=== PATIENT | male | born 1980 | race Caucasian/White ===

== ENCOUNTER 2021-02-05 12:04 | Outpatient (REF) | payer MEDICARE, MEDICAID, SELFPAY ==
[2021-02-05 13:10] LABS: MANUAL DIFF FLAG NO
[2021-02-05 13:16] LABS: Basophils Percent Auto 0.3 % (0-2); Eosinophils Absolute Auto 0.1 X10*3/uL (0.0-0.4); Eosinophils Percent Auto 1.1 % (0-4); Hematocrit 38.7 % (42-52); Hemoglobin 12.8 g/dl (14.0-18.0); Imm Gran Abs Auto 0.13 X10*3/uL (0.00-0.03); Imm Gran Pct Auto 1.3 % (0.0-0.4); Lymphocytes Percent Auto 29.2 % (20-40); Mean Corpuscular HGB Conc 33.1 g/dl (31.0-36.0); Mean Corpuscular Hemoglobin 26.4 pg (27.0-33.0); Mean Corpuscular Volume 79.8 fL (80-98); Mean Platelet Volume 9.5 fL (9.4-12.4); Monocytes Absolute Auto 0.6 X10*3/uL (0.1-1.2); Neutrophils Absolute Auto 6.4 X10*3/uL (2.0-8.3); Neutrophils Percent Auto 62.1 % (45-73); Platelet Count 415 X10*3/uL (160-400); Red Blood Count 4.85 X10*6/uL (4.60-5.80); Red Cell Distribution Width 12.9 % (11.0-16.0); White Blood Count 10.3 X10*3/uL (4.8-10.8)
[2021-02-05 13:41] LABS: Alanine Aminotransferase 47 U/L (0-40); Albumin Level 4.9 g/dL (3.5-5.0); Alkaline Phosphatase 70 U/L (39-117); Anion Gap 15 (12-20); Aspartate Amino Transferase 30 U/L (5-37); Bilirubin Total 0.2 mg/dL (0.0-1.0); Blood Urea Nitrogen 5 mg/dL (9-16); Calcium 9.2 mg/dL (8.4-10.2); Carbon Dioxide 22 mmol/L (22-29); Chloride 107 mmol/L (96-108); Cholesterol 194 mg/dL; Estimated Glomerular Filt Rate > 60; Glucose Random 143 mg/dL (60-115); HDL Cholesterol 41 mg/dL; LDL Cholesterol Calculated 121 mg/dl; Potassium 4.2 mmol/L (3.3-5.1); Sodium 140 mmol/L (135-145); Total Protein 7.4 g/dL (6.5-8.0); Triglycerides 162 mg/dL
[2021-02-05 14:05] LABS: Free T4 (Free Thyroxine) 1.34 ng/dL (0.71-1.85); Thyroid Stimulating Hormone 3.74 uIU/mL (0.32-4.0); Vitamin D 25-OH Total 19.7 ng/mL (>30)
== END 2021-02-05 12:05 | disposition home or self-care (01) ==
LOC: HO.LABR 12:04
PROVIDERS: Absent Provider Psychiatry & Neurology Psychiatry; Visit Provider Psychiatry & Neurology Psychiatry
DX: E03.9 Hypothyroidism, unspecified (principal); E78.5 Hyperlipidemia, unspecified; E55.9 Vitamin D deficiency, unspecified; Z79.899 Other long term (current) drug therapy
CPT/HCPCS: 36415; 80053; 80061; 82306; 84439; 84443; 85025

== ENCOUNTER 2021-02-12 13:14 | Outpatient (REF) | payer MEDICARE, MEDICAID, SELFPAY ==
[2021-02-12 14:16] LABS: Amphetamine Screen Urine Not Detected (Not Detect); Barbiturates, Urine Not Detected (Not Detect); Benzodiazepines Screen Urine Not Detected (Not Detect); Cannabinoid Screen Urine POSITIVE (Not Detect); Cocaine Screen Urine Not Detected (Not Detect); Opiate Screen Urine Not Detected (Not Detect); Phencyclidine Screen Urine Not Detected (Not Detect)
== END 2021-02-12 13:15 | disposition home or self-care (01) ==
LOC: HO.LAB 13:14
PROVIDERS: Visit Provider Clinical Nurse Specialist Psychiatric/Mental Health, Adult
DX: Z79.899 Other long term (current) drug therapy (principal)
CPT/HCPCS: 80307

== ENCOUNTER 2021-02-18 15:06 | Outpatient (REF) | payer MEDICARE, MEDICAID, SELFPAY ==
[2021-02-18 15:45] LABS: MANUAL DIFF FLAG NO
[2021-02-18 15:54] LABS: Basophils Percent Auto 0.3 % (0-2); Eosinophils Absolute Auto 0.1 X10*3/uL (0.0-0.4); Eosinophils Percent Auto 0.8 % (0-4); Hematocrit 40.4 % (42-52); Hemoglobin 13.6 g/dl (14.0-18.0); Imm Gran Abs Auto 0.08 X10*3/uL (0.00-0.03); Imm Gran Pct Auto 0.7 % (0.0-0.4); Lymphocytes Absolute Auto 2.7 X10*3/uL (1.2-4.9); Lymphocytes Percent Auto 24.9 % (20-40); Mean Corpuscular HGB Conc 33.7 g/dl (31.0-36.0); Mean Corpuscular Hemoglobin 26.9 pg (27.0-33.0); Mean Corpuscular Volume 79.8 fL (80-98); Mean Platelet Volume 9.5 fL (9.4-12.4); Monocytes Absolute Auto 0.5 X10*3/uL (0.1-1.2); Monocytes Percent Auto 4.9 % (2-11); Neutrophils Absolute Auto 7.3 X10*3/uL (2.0-8.3); Neutrophils Percent Auto 68.4 % (45-73); Platelet Count 376 X10*3/uL (160-400); Red Blood Count 5.06 X10*6/uL (4.60-5.80); Red Cell Distribution Width 13.2 % (11.0-16.0); White Blood Count 10.7 X10*3/uL (4.8-10.8)
== END 2021-02-18 15:07 | disposition home or self-care (01) ==
LOC: HO.LABR 15:06
PROVIDERS: Visit Provider Clinical Nurse Specialist Psychiatric/Mental Health, Adult
DX: Z79.899 Other long term (current) drug therapy (principal)
CPT/HCPCS: 36415; 85025

== ENCOUNTER 2021-02-26 13:55 | Outpatient (REF) | payer MEDICARE, MEDICAID, SELFPAY ==
[2021-02-26 14:28] LABS: MANUAL DIFF FLAG NO
[2021-02-26 14:33] LABS: Basophils Percent Auto 0.4 % (0-2); Eosinophils Absolute Auto 0.1 X10*3/uL (0.0-0.4); Eosinophils Percent Auto 0.7 % (0-4); Hematocrit 39.8 % (42-52); Hemoglobin 13.4 g/dl (14.0-18.0); Imm Gran Abs Auto 0.11 X10*3/uL (0.00-0.03); Imm Gran Pct Auto 1.1 % (0.0-0.4); Lymphocytes Percent Auto 30.7 % (20-40); Mean Corpuscular HGB Conc 33.7 g/dl (31.0-36.0); Mean Corpuscular Hemoglobin 27.2 pg (27.0-33.0); Mean Corpuscular Volume 80.7 fL (80-98); Mean Platelet Volume 9.5 fL (9.4-12.4); Monocytes Absolute Auto 0.7 X10*3/uL (0.1-1.2); Monocytes Percent Auto 7.5 % (2-11); Neut%MD 59.6 %; Neutrophils Absolute Auto 5.8 X10*3/uL (2.0-8.3); Neutrophils Percent Auto 59.6 % (45-73); Platelet Count 409 X10*3/uL (160-400); Red Blood Count 4.93 X10*6/uL (4.60-5.80); Red Cell Distribution Width 13.2 % (11.0-16.0); WBCANC 9.7 X10*3/uL; White Blood Count 9.7 X10*3/uL (4.8-10.8)
== END 2021-02-26 13:56 | disposition home or self-care (01) ==
LOC: HO.LABR 13:55
PROVIDERS: Visit Provider Clinical Nurse Specialist Psychiatric/Mental Health, Adult
DX: Z79.899 Other long term (current) drug therapy (principal)
CPT/HCPCS: 36415; 85025; 85048

== ENCOUNTER 2021-03-05 11:25 | Outpatient (REF) | payer MEDICARE, MEDICAID, SELFPAY ==
[2021-03-05 12:09] LABS: MANUAL DIFF FLAG NO
[2021-03-05 12:16] LABS: Basophils Percent Auto 0.5 % (0-2); Eosinophils Absolute Auto 0.1 X10*3/uL (0.0-0.4); Eosinophils Percent Auto 0.7 % (0-4); Hematocrit 39.5 % (42-52); Hemoglobin 12.8 g/dl (14.0-18.0); Imm Gran Abs Auto 0.06 X10*3/uL (0.00-0.03); Imm Gran Pct Auto 0.7 % (0.0-0.4); Lymphocytes Absolute Auto 2.8 X10*3/uL (1.2-4.9); Lymphocytes Percent Auto 33.8 % (20-40); Mean Corpuscular HGB Conc 32.4 g/dl (31.0-36.0); Mean Corpuscular Hemoglobin 26.1 pg (27.0-33.0); Mean Corpuscular Volume 80.6 fL (80-98); Mean Platelet Volume 9.5 fL (9.4-12.4); Monocytes Absolute Auto 0.7 X10*3/uL (0.1-1.2); Monocytes Percent Auto 8.4 % (2-11); Neut%MD 55.9 %; Neutrophils Absolute Auto 4.6 X10*3/uL (2.0-8.3); Neutrophils Percent Auto 55.9 % (45-73); Platelet Count 378 X10*3/uL (160-400); Red Cell Distribution Width 13.1 % (11.0-16.0); WBCANC 8.2 X10*3/uL; White Blood Count 8.2 X10*3/uL (4.8-10.8)
== END 2021-03-05 11:26 | disposition home or self-care (01) ==
LOC: HO.LABR 11:25
PROVIDERS: Visit Provider Clinical Nurse Specialist Psychiatric/Mental Health, Adult
DX: Z79.899 Other long term (current) drug therapy (principal)
CPT/HCPCS: 36415; 85025; 85048

== ENCOUNTER 2021-03-26 13:57 | Outpatient (REF) | payer MEDICARE, MEDICAID, SELFPAY ==
[2021-03-26 14:32] LABS: MANUAL DIFF FLAG NO
[2021-03-26 14:39] LABS: Basophils Absolute Auto 0.1 X10*3/uL (0.0-0.2); Basophils Percent Auto 0.3 % (0-2); Eosinophils Percent Auto 0.2 % (0-4); Hematocrit 38.4 % (42-52); Hemoglobin 12.6 g/dl (14.0-18.0); Imm Gran Abs Auto 0.08 X10*3/uL (0.00-0.03); Imm Gran Pct Auto 0.6 % (0.0-0.4); Lymphocytes Absolute Auto 2.2 X10*3/uL (1.2-4.9); Lymphocytes Percent Auto 15.1 % (20-40); Mean Corpuscular HGB Conc 32.8 g/dl (31.0-36.0); Mean Corpuscular Hemoglobin 26.7 pg (27.0-33.0); Mean Corpuscular Volume 81.4 fL (80-98); Mean Platelet Volume 10.1 fL (9.4-12.4); Monocytes Absolute Auto 0.6 X10*3/uL (0.1-1.2); Monocytes Percent Auto 4.3 % (2-11); Neut%MD 79.5 %; Neutrophils Absolute Auto 11.4 X10*3/uL (2.0-8.3); Neutrophils Percent Auto 79.5 % (45-73); Platelet Count 359 X10*3/uL (160-400); Red Blood Count 4.72 X10*6/uL (4.60-5.80); Red Cell Distribution Width 13.2 % (11.0-16.0); WBCANC 14.3 X10*3/uL; White Blood Count 14.3 X10*3/uL (4.8-10.8)
== END 2021-03-26 13:58 | disposition home or self-care (01) ==
LOC: HO.LABR 13:57
PROVIDERS: Visit Provider Clinical Nurse Specialist Psychiatric/Mental Health, Adult
DX: Z79.899 Other long term (current) drug therapy (principal)
CPT/HCPCS: 36415; 85025; 85048

== ENCOUNTER 2021-04-10 10:35 | Outpatient (REF) | payer MEDICARE, MEDICAID, SELFPAY ==
[2021-04-10 12:29] LABS: MANUAL DIFF FLAG NO
[2021-04-10 12:35] LABS: Basophils Percent Auto 0.2 % (0-2); Eosinophils Percent Auto 0.2 % (0-4); Hematocrit 39.8 % (42-52); Hemoglobin 13.1 g/dl (14.0-18.0); Imm Gran Abs Auto 0.08 X10*3/uL (0.00-0.03); Imm Gran Pct Auto 0.6 % (0.0-0.4); Lymphocytes Absolute Auto 2.5 X10*3/uL (1.2-4.9); Lymphocytes Percent Auto 20.1 % (20-40); Mean Corpuscular HGB Conc 32.9 g/dl (31.0-36.0); Mean Corpuscular Hemoglobin 26.3 pg (27.0-33.0); Mean Corpuscular Volume 79.9 fL (80-98); Mean Platelet Volume 9.9 fL (9.4-12.4); Monocytes Absolute Auto 0.6 X10*3/uL (0.1-1.2); Monocytes Percent Auto 4.6 % (2-11); Neut%MD 74.3 %; Neutrophils Absolute Auto 9.2 X10*3/uL (2.0-8.3); Neutrophils Percent Auto 74.3 % (45-73); Platelet Count 373 X10*3/uL (160-400); Red Blood Count 4.98 X10*6/uL (4.60-5.80); Red Cell Distribution Width 13.4 % (11.0-16.0); WBCANC 12.4 X10*3/uL; White Blood Count 12.4 X10*3/uL (4.8-10.8)
== END 2021-04-10 10:36 | disposition home or self-care (01) ==
LOC: HO.LABR 10:35
PROVIDERS: Visit Provider Clinical Nurse Specialist Psychiatric/Mental Health, Adult
DX: Z79.899 Other long term (current) drug therapy (principal)
CPT/HCPCS: 36415; 85025; 85048

== ENCOUNTER 2021-04-23 14:12 | Outpatient (REF) | payer MEDICARE, MEDICAID, SELFPAY ==
[2021-04-23 15:07] LABS: MANUAL DIFF FLAG NO
[2021-04-23 15:14] LABS: Basophils Percent Auto 0.3 % (0-2); Eosinophils Percent Auto 0.2 % (0-4); Hematocrit 40.6 % (42-52); Hemoglobin 13.2 g/dl (14.0-18.0); Imm Gran Abs Auto 0.04 X10*3/uL (0.00-0.03); Imm Gran Pct Auto 0.4 % (0.0-0.4); Lymphocytes Absolute Auto 3.1 X10*3/uL (1.2-4.9); Lymphocytes Percent Auto 34.7 % (20-40); Mean Corpuscular HGB Conc 32.5 g/dl (31.0-36.0); Mean Corpuscular Hemoglobin 26.2 pg (27.0-33.0); Mean Corpuscular Volume 80.6 fL (80-98); Mean Platelet Volume 9.7 fL (9.4-12.4); Monocytes Absolute Auto 0.5 X10*3/uL (0.1-1.2); Neut%MD 58.4 %; Neutrophils Absolute Auto 5.3 X10*3/uL (2.0-8.3); Neutrophils Percent Auto 58.4 % (45-73); Platelet Count 366 X10*3/uL (160-400); Red Blood Count 5.04 X10*6/uL (4.60-5.80); Red Cell Distribution Width 13.5 % (11.0-16.0); WBCANC 9.1 X10*3/uL; White Blood Count 9.1 X10*3/uL (4.8-10.8)
== END 2021-04-23 14:13 | disposition home or self-care (01) ==
LOC: HO.LABR 14:12
PROVIDERS: Visit Provider Clinical Nurse Specialist Psychiatric/Mental Health, Adult
DX: Z79.899 Other long term (current) drug therapy (principal)
CPT/HCPCS: 36415; 85025; 85048

== ENCOUNTER 2021-05-07 11:26 | Outpatient (REF) | payer MEDICARE, MEDICAID, SELFPAY ==
[2021-05-07 11:56] LABS: MANUAL DIFF FLAG NO
[2021-05-07 12:03] LABS: Basophils Percent Auto 0.3 % (0-2); Hematocrit 39.1 % (42-52); Imm Gran Abs Auto 0.04 X10*3/uL (0.00-0.03); Imm Gran Pct Auto 0.4 % (0.0-0.4); Lymphocytes Absolute Auto 2.6 X10*3/uL (1.2-4.9); Lymphocytes Percent Auto 23.9 % (20-40); Mean Corpuscular HGB Conc 33.2 g/dl (31.0-36.0); Mean Corpuscular Hemoglobin 26.7 pg (27.0-33.0); Mean Corpuscular Volume 80.3 fL (80-98); Mean Platelet Volume 9.6 fL (9.4-12.4); Monocytes Absolute Auto 0.5 X10*3/uL (0.1-1.2); Monocytes Percent Auto 4.9 % (2-11); Neutrophils Absolute Auto 7.6 X10*3/uL (2.0-8.3); Neutrophils Percent Auto 70.5 % (45-73); Platelet Count 380 X10*3/uL (160-400); Red Blood Count 4.87 X10*6/uL (4.60-5.80); Red Cell Distribution Width 13.4 % (11.0-16.0); White Blood Count 10.8 X10*3/uL (4.8-10.8)
== END 2021-05-07 11:27 | disposition home or self-care (01) ==
LOC: HO.LABR 11:26
PROVIDERS: Visit Provider Clinical Nurse Specialist Psychiatric/Mental Health, Adult
DX: Z79.899 Other long term (current) drug therapy (principal)
CPT/HCPCS: 36415; 85025

== ENCOUNTER 2021-05-22 11:47 | Outpatient (REF) | payer MEDICARE, MEDICAID, SELFPAY ==
[2021-05-22 14:01] LABS: MANUAL DIFF FLAG NO
[2021-05-22 14:13] LABS: Basophils Percent Auto 0.3 % (0-2); Hematocrit 40.6 % (42-52); Hemoglobin 13.3 g/dl (14.0-18.0); Imm Gran Abs Auto 0.06 X10*3/uL (0.00-0.03); Imm Gran Pct Auto 0.6 % (0.0-0.4); Lymphocytes Absolute Auto 2.4 X10*3/uL (1.2-4.9); Lymphocytes Percent Auto 23.5 % (20-40); Mean Corpuscular HGB Conc 32.8 g/dl (31.0-36.0); Mean Corpuscular Hemoglobin 26.6 pg (27.0-33.0); Mean Corpuscular Volume 81.2 fL (80-98); Mean Platelet Volume 10.2 fL (9.4-12.4); Monocytes Absolute Auto 0.6 X10*3/uL (0.1-1.2); Monocytes Percent Auto 5.9 % (2-11); Neutrophils Percent Auto 69.7 % (45-73); Platelet Count 340 X10*3/uL (160-400); Red Cell Distribution Width 13.7 % (11.0-16.0)
== END 2021-05-22 11:48 | disposition home or self-care (01) ==
LOC: HO.LABR 11:47
PROVIDERS: Visit Provider Clinical Nurse Specialist Psychiatric/Mental Health, Adult
DX: Z79.899 Other long term (current) drug therapy (principal)
CPT/HCPCS: 36415; 85025

== ENCOUNTER 2021-06-04 12:50 | Outpatient (REF) | payer MEDICARE, MEDICAID, SELFPAY ==
[2021-06-04 13:51] LABS: MANUAL DIFF FLAG NO
[2021-06-04 13:58] LABS: Basophils Percent Auto 0.2 % (0-2); Hematocrit 39.5 % (42-52); Imm Gran Abs Auto 0.07 X10*3/uL (0.00-0.03); Imm Gran Pct Auto 0.7 % (0.0-0.4); Lymphocytes Absolute Auto 2.3 X10*3/uL (1.2-4.9); Mean Corpuscular HGB Conc 32.9 g/dl (31.0-36.0); Mean Corpuscular Hemoglobin 26.4 pg (27.0-33.0); Mean Corpuscular Volume 80.3 fL (80-98); Mean Platelet Volume 9.8 fL (9.4-12.4); Monocytes Absolute Auto 0.5 X10*3/uL (0.1-1.2); Monocytes Percent Auto 4.6 % (2-11); Neutrophils Absolute Auto 7.5 X10*3/uL (2.0-8.3); Neutrophils Percent Auto 72.5 % (45-73); Platelet Count 338 X10*3/uL (160-400); Red Blood Count 4.92 X10*6/uL (4.60-5.80); Red Cell Distribution Width 13.6 % (11.0-16.0); White Blood Count 10.4 X10*3/uL (4.8-10.8)
== END 2021-06-04 12:51 | disposition home or self-care (01) ==
LOC: HO.LABR 12:50
PROVIDERS: Visit Provider Clinical Nurse Specialist Psychiatric/Mental Health, Adult
DX: Z79.899 Other long term (current) drug therapy (principal)
CPT/HCPCS: 36415; 85025

== ENCOUNTER 2021-06-19 09:49 | Outpatient (REF) | payer MEDICARE, MEDICAID, SELFPAY ==
[2021-06-19 10:09] LABS: MANUAL DIFF FLAG NO
[2021-06-19 10:12] LABS: Basophils Percent Auto 0.3 % (0-2); Hematocrit 37.2 % (42-52); Hemoglobin 12.5 g/dl (14.0-18.0); Imm Gran Abs Auto 0.04 X10*3/uL (0.00-0.03); Imm Gran Pct Auto 0.5 % (0.0-0.4); Lymphocytes Absolute Auto 1.9 X10*3/uL (1.2-4.9); Lymphocytes Percent Auto 23.2 % (20-40); Mean Corpuscular HGB Conc 33.6 g/dl (31.0-36.0); Mean Corpuscular Hemoglobin 27.2 pg (27.0-33.0); Mean Platelet Volume 9.1 fL (9.4-12.4); Monocytes Absolute Auto 0.6 X10*3/uL (0.1-1.2); Monocytes Percent Auto 6.9 % (2-11); Neutrophils Absolute Auto 5.5 X10*3/uL (2.0-8.3); Neutrophils Percent Auto 69.1 % (45-73); Platelet Count 319 X10*3/uL (160-400); Red Blood Count 4.59 X10*6/uL (4.60-5.80); Red Cell Distribution Width 13.7 % (11.0-16.0)
== END 2021-06-19 09:50 | disposition home or self-care (01) ==
LOC: HO.LABR 09:49
PROVIDERS: Visit Provider Clinical Nurse Specialist Psychiatric/Mental Health, Adult
DX: Z79.899 Other long term (current) drug therapy (principal)
CPT/HCPCS: 36415; 85025

== ENCOUNTER 2021-07-31 11:54 | Outpatient (REF) | payer MEDICARE, MEDICAID, SELFPAY ==
[2021-07-31 12:24] LABS: MANUAL DIFF FLAG NO
[2021-07-31 12:30] LABS: Basophils Percent Auto 0.4 % (0-2); Hematocrit 41.9 % (42-52); Hemoglobin 14.1 g/dl (14.0-18.0); Imm Gran Pct Auto 0.9 % (0.0-0.4); Lymphocytes Absolute Auto 3.1 X10*3/uL (1.2-4.9); Lymphocytes Percent Auto 28.7 % (20-40); Mean Corpuscular HGB Conc 33.7 g/dl (31.0-36.0); Mean Corpuscular Hemoglobin 27.3 pg (27.0-33.0); Mean Corpuscular Volume 81.2 fL (80-98); Mean Platelet Volume 9.8 fL (9.4-12.4); Monocytes Absolute Auto 0.7 X10*3/uL (0.1-1.2); Monocytes Percent Auto 6.3 % (2-11); Neutrophils Absolute Auto 6.8 X10*3/uL (2.0-8.3); Neutrophils Percent Auto 63.7 % (45-73); Platelet Count 378 X10*3/uL (160-400); Red Blood Count 5.16 X10*6/uL (4.60-5.80); Red Cell Distribution Width 13.1 % (11.0-16.0); White Blood Count 10.7 X10*3/uL (4.8-10.8)
== END 2021-07-31 11:55 | disposition home or self-care (01) ==
LOC: HO.LABR 11:54
PROVIDERS: Visit Provider Clinical Nurse Specialist Psychiatric/Mental Health, Adult
DX: Z79.899 Other long term (current) drug therapy (principal)
CPT/HCPCS: 36415; 85025

== ENCOUNTER 2021-09-16 08:19 | Outpatient (REF) | payer MEDICARE, MEDICAID, SELFPAY ==
[2021-09-16 08:33] LABS: MANUAL DIFF FLAG NO
[2021-09-16 08:55] LABS: Basophils Percent Auto 0.3 % (0-2); Eosinophils Percent Auto 0.2 % (0-4); Hematocrit 39.6 % (42-52); Hemoglobin 13.4 g/dl (14.0-18.0); Imm Gran Abs Auto 0.04 X10*3/uL (0.00-0.03); Imm Gran Pct Auto 0.5 % (0.0-0.4); Lymphocytes Absolute Auto 2.7 X10*3/uL (1.2-4.9); Lymphocytes Percent Auto 30.5 % (20-40); Mean Corpuscular HGB Conc 33.8 g/dl (31.0-36.0); Mean Corpuscular Hemoglobin 27.8 pg (27.0-33.0); Mean Corpuscular Volume 82.2 fL (80-98); Mean Platelet Volume 9.7 fL (9.4-12.4); Monocytes Absolute Auto 0.6 X10*3/uL (0.1-1.2); Monocytes Percent Auto 6.7 % (2-11); Neutrophils Absolute Auto 5.4 X10*3/uL (2.0-8.3); Neutrophils Percent Auto 61.8 % (45-73); Platelet Count 336 X10*3/uL (160-400); Red Blood Count 4.82 X10*6/uL (4.60-5.80); White Blood Count 8.7 X10*3/uL (4.8-10.8)
== END 2021-09-16 08:20 | disposition home or self-care (01) ==
LOC: HO.LABR 08:19
PROVIDERS: Visit Provider Clinical Nurse Specialist Psychiatric/Mental Health, Adult
DX: Z79.899 Other long term (current) drug therapy (principal)
CPT/HCPCS: 36415; 85025

== ENCOUNTER 2021-10-15 12:14 | Outpatient (REF) | payer MEDICARE, MEDICAID, SELFPAY ==
[2021-10-15 12:45] LABS: MANUAL DIFF FLAG NO
[2021-10-15 13:40] LABS: Basophils Percent Auto 0.4 % (0-2); Eosinophils Percent Auto 0.2 % (0-4); Hematocrit 38.6 % (42.0-52.0); Hemoglobin 13.1 g/dl (14.0-18.0); Imm Gran Abs Auto 0.05 X10*3/uL (0.00-0.03); Imm Gran Pct Auto 0.5 % (0.0-0.4); Lymphocytes Absolute Auto 2.9 X10*3/uL (1.2-4.9); Mean Corpuscular HGB Conc 33.9 g/dl (31.0-36.0); Mean Corpuscular Hemoglobin 27.9 pg (27.0-33.0); Mean Corpuscular Volume 82.1 fL (80.0-98.0); Mean Platelet Volume 9.5 fL (9.4-12.4); Monocytes Absolute Auto 0.6 X10*3/uL (0.1-1.2); Monocytes Percent Auto 6.3 % (2-11); Neutrophils Absolute Auto 5.7 x10*3/uL (2.0-8.3); Neutrophils Percent Auto 61.6 % (45-73); Platelet Count 344 X10*3/uL (160-400); Red Cell Distribution Width 12.8 % (11.0-16.0); White Blood Count 9.3 X10*3/uL (4.8-10.8)
== END 2021-10-15 12:15 | disposition home or self-care (01) ==
LOC: HO.LABR 12:14
PROVIDERS: Visit Provider Clinical Nurse Specialist Psychiatric/Mental Health, Adult
DX: Z79.899 Other long term (current) drug therapy (principal)
CPT/HCPCS: 36415; 85025

== ENCOUNTER 2021-11-11 08:20 | Outpatient (REF) | payer MEDICARE, MEDICAID, SELFPAY ==
[2021-11-11 08:43] LABS: MANUAL DIFF FLAG NO
[2021-11-11 09:32] LABS: Basophils Percent Auto 0.4 % (0-2); Eosinophils Percent Auto 0.1 % (0-4); Hematocrit 39.1 % (42.0-52.0); Imm Gran Abs Auto 0.05 X10*3/uL (0.00-0.03); Imm Gran Pct Auto 0.5 % (0.0-0.4); Lymphocytes Absolute Auto 2.3 X10*3/uL (1.2-4.9); Lymphocytes Percent Auto 22.6 % (20-40); Mean Corpuscular HGB Conc 33.2 g/dl (31.0-36.0); Mean Corpuscular Hemoglobin 27.5 pg (27.0-33.0); Mean Corpuscular Volume 82.8 fL (80.0-98.0); Mean Platelet Volume 9.8 fL (9.4-12.4); Monocytes Absolute Auto 0.8 X10*3/uL (0.1-1.2); Monocytes Percent Auto 7.4 % (2-11); Platelet Count 357 X10*3/uL (160-400); Red Blood Count 4.72 X10*6/uL (4.60-5.80); WBCANC 10.1 X10*3/uL; White Blood Count 10.1 X10*3/uL (4.8-10.8)
== END 2021-11-11 08:21 | disposition home or self-care (01) ==
LOC: HO.LAB 08:20
PROVIDERS: PCP Family Medicine; Visit Provider Clinical Nurse Specialist Psychiatric/Mental Health, Adult
DX: Z79.899 Other long term (current) drug therapy (principal)
CPT/HCPCS: 36415; 85025

== ENCOUNTER 2022-01-15 13:33 | Outpatient (REF) | payer MEDICARE, MEDICAID, SELFPAY ==
[2022-01-15 14:18] LABS: Basophils Percent Auto 0.3 % (0-2); Eosinophils Percent Auto 0.1 % (0-4); Hemoglobin 13.5 g/dl (14.0-18.0); Imm Gran Abs Auto 0.07 X10*3/uL (0.00-0.03); Imm Gran Pct Auto 0.7 % (0.0-0.4); Lymphocytes Absolute Auto 2.4 X10*3/uL (1.2-4.9); MANUAL DIFF FLAG NO; Mean Corpuscular HGB Conc 33.8 g/dl (31.0-36.0); Mean Corpuscular Hemoglobin 28.2 pg (27.0-33.0); Mean Corpuscular Volume 83.7 fL (80.0-98.0); Mean Platelet Volume 9.5 fL (9.4-12.4); Monocytes Absolute Auto 0.7 X10*3/uL (0.1-1.2); Monocytes Percent Auto 6.5 % (2-11); Neutrophils Absolute Auto 6.8 x10*3/uL (2.0-8.3); Neutrophils Percent Auto 68.4 % (45-73); Platelet Count 380 X10*3/uL (160-400); Red Blood Count 4.78 X10*6/uL (4.60-5.80)
== END 2022-01-15 13:34 | disposition home or self-care (01) ==
LOC: HO.LABR 13:33
PROVIDERS: PCP Family Medicine; Visit Provider Clinical Nurse Specialist Psychiatric/Mental Health, Adult
DX: Z79.899 Other long term (current) drug therapy (principal)
CPT/HCPCS: 36415; 85025

== ENCOUNTER 2022-02-12 11:12 | Outpatient (REF) | payer MEDICARE, MEDICAID, SELFPAY ==
[2022-02-12 13:58] LABS: MANUAL DIFF FLAG NO
[2022-02-12 14:03] LABS: Basophils Percent Auto 0.4 % (0-2); Hematocrit 37.7 % (42.0-52.0); Hemoglobin 12.5 g/dl (14.0-18.0); Imm Gran Abs Auto 0.05 X10*3/uL (0.00-0.03); Imm Gran Pct Auto 0.6 % (0.0-0.4); Lymphocytes Absolute Auto 2.1 X10*3/uL (1.2-4.9); Lymphocytes Percent Auto 25.8 % (20-40); Mean Corpuscular HGB Conc 33.2 g/dl (31.0-36.0); Mean Corpuscular Hemoglobin 27.8 pg (27.0-33.0); Mean Corpuscular Volume 83.8 fL (80.0-98.0); Mean Platelet Volume 9.9 fL (9.4-12.4); Monocytes Absolute Auto 0.5 X10*3/uL (0.1-1.2); Monocytes Percent Auto 6.4 % (2-11); Neutrophils Absolute Auto 5.3 x10*3/uL (2.0-8.3); Neutrophils Percent Auto 66.8 % (45-73); Platelet Count 376 X10*3/uL (160-400); Red Cell Distribution Width 12.9 % (11.0-16.0)
== END 2022-02-12 11:13 | disposition home or self-care (01) ==
LOC: HO.HMGCLDS 11:12
PROVIDERS: Visit Provider Clinical Nurse Specialist Psychiatric/Mental Health, Adult
DX: Z79.899 Other long term (current) drug therapy (principal)
CPT/HCPCS: 36415; 85025

== ENCOUNTER 2022-03-12 12:52 | Outpatient (REF) | payer MEDICARE, MEDICAID, SELFPAY ==
[2022-03-12 13:36] LABS: MANUAL DIFF FLAG NO
[2022-03-12 13:39] LABS: Basophils Percent Auto 0.5 % (0-2); Hemoglobin 13.4 g/dl (14.0-18.0); Imm Gran Abs Auto 0.03 X10*3/uL (0.00-0.03); Imm Gran Pct Auto 0.4 % (0.0-0.4); Lymphocytes Absolute Auto 2.2 X10*3/uL (1.2-4.9); Lymphocytes Percent Auto 27.1 % (20-40); Mean Corpuscular HGB Conc 33.5 g/dl (31.0-36.0); Mean Corpuscular Volume 83.5 fL (80.0-98.0); Mean Platelet Volume 9.7 fL (9.4-12.4); Monocytes Absolute Auto 0.6 X10*3/uL (0.1-1.2); Monocytes Percent Auto 7.6 % (2-11); Neutrophils Absolute Auto 5.3 x10*3/uL (2.0-8.3); Neutrophils Percent Auto 64.4 % (45-73); Platelet Count 331 X10*3/uL (160-400); Red Blood Count 4.79 X10*6/uL (4.60-5.80); Red Cell Distribution Width 12.5 % (11.0-16.0); White Blood Count 8.2 X10*3/uL (4.8-10.8)
== END 2022-03-12 12:53 | disposition home or self-care (01) ==
LOC: HO.HMGCLR 12:52
PROVIDERS: Visit Provider Clinical Nurse Specialist Psychiatric/Mental Health, Adult
DX: Z79.899 Other long term (current) drug therapy (principal)
CPT/HCPCS: 36415; 85025

== ENCOUNTER 2022-04-09 10:40 | Outpatient (REF) | payer MEDICARE, MEDICAID, SELFPAY ==
[2022-04-09 14:01] LABS: Neut%MD 70.4 %; Neutrophils Absolute Auto 6.8 x10*3/uL (2.0-8.3); WBCANC 9.7 X10*3/uL; White Blood Count 9.7 X10*3/uL (4.8-10.8)
== END 2022-04-09 10:41 | disposition home or self-care (01) ==
LOC: HO.HMGCLDS 10:40
PROVIDERS: Visit Provider Clinical Nurse Specialist Psychiatric/Mental Health, Adult
DX: Z79.899 Other long term (current) drug therapy (principal)
CPT/HCPCS: 36415; 85048

== ENCOUNTER 2022-05-07 12:48 | Outpatient (REF) | payer MEDICARE, MEDICAID, SELFPAY ==
[2022-05-07 13:47] LABS: MANUAL DIFF FLAG NO
[2022-05-07 13:52] LABS: Basophils Percent Auto 0.5 % (0-2); Eosinophils Percent Auto 0.1 % (0-4); Hematocrit 40.7 % (42.0-52.0); Hemoglobin 14.1 g/dl (14.0-18.0); Imm Gran Abs Auto 0.11 X10*3/uL (0.00-0.03); Imm Gran Pct Auto 1.3 % (0.0-0.4); Lymphocytes Absolute Auto 2.4 X10*3/uL (1.2-4.9); Lymphocytes Percent Auto 27.1 % (20-40); Mean Corpuscular HGB Conc 34.6 g/dl (31.0-36.0); Mean Corpuscular Hemoglobin 28.1 pg (27.0-33.0); Mean Corpuscular Volume 81.2 fL (80.0-98.0); Mean Platelet Volume 9.5 fL (9.4-12.4); Monocytes Absolute Auto 0.6 X10*3/uL (0.1-1.2); Monocytes Percent Auto 7.1 % (2-11); Neutrophils Absolute Auto 5.6 x10*3/uL (2.0-8.3); Neutrophils Percent Auto 63.9 % (45-73); Platelet Count 411 X10*3/uL (160-400); Red Blood Count 5.01 X10*6/uL (4.60-5.80); Red Cell Distribution Width 12.3 % (11.0-16.0); White Blood Count 8.8 X10*3/uL (4.8-10.8)
== END 2022-05-07 12:49 | disposition home or self-care (01) ==
LOC: HO.HMGCLR 12:48
PROVIDERS: Visit Provider Clinical Nurse Specialist Psychiatric/Mental Health, Adult
DX: Z79.899 Other long term (current) drug therapy (principal)
CPT/HCPCS: 36415; 85025

== ENCOUNTER 2022-06-08 11:52 | Outpatient (REF) | payer MEDICARE, MEDICAID, SELFPAY ==
[2022-06-08 12:04] LABS: MANUAL DIFF FLAG NO
[2022-06-08 13:12] LABS: Basophils Percent Auto 0.4 % (0-2); Eosinophils Percent Auto 0.1 % (0-4); Hematocrit 36.7 % (42.0-52.0); Hemoglobin 12.3 g/dl (14.0-18.0); Imm Gran Abs Auto 0.07 X10*3/uL (0.00-0.03); Imm Gran Pct Auto 0.8 % (0.0-0.4); Lymphocytes Absolute Auto 1.8 X10*3/uL (1.2-4.9); Lymphocytes Percent Auto 19.3 % (20-40); Mean Corpuscular HGB Conc 33.5 g/dl (31.0-36.0); Mean Corpuscular Hemoglobin 27.4 pg (27.0-33.0); Mean Corpuscular Volume 81.7 fL (80.0-98.0); Monocytes Absolute Auto 0.6 X10*3/uL (0.1-1.2); Monocytes Percent Auto 6.3 % (2-11); Neutrophils Absolute Auto 6.8 x10*3/uL (2.0-8.3); Neutrophils Percent Auto 73.1 % (45-73); Platelet Count 312 X10*3/uL (160-400); Red Blood Count 4.49 X10*6/uL (4.60-5.80); Red Cell Distribution Width 12.8 % (11.0-16.0); White Blood Count 9.3 X10*3/uL (4.8-10.8)
[2022-06-08 13:38] LABS: Alanine Aminotransferase 27 U/L (0-40); Albumin Level 4.4 g/dL (3.5-5.0); Alkaline Phosphatase 77 U/L (39-117); Anion Gap 16 (12-20); Aspartate Amino Transferase 28 U/L (5-37); Bilirubin Total 0.3 mg/dL (0.0-1.0); Blood Urea Nitrogen 11 mg/dL (9-16); Calcium 9.2 mg/dL (8.4-10.2); Carbon Dioxide 23 mmol/L (22-29); Chloride 105 mmol/L (96-108); Cholesterol 210 mg/dL; Estimated Average Glucose 123 mg/dL; Estimated Glomerular Filt Rate > 60; Glucose Random 108 mg/dL (60-115); HDL Cholesterol 46 mg/dL; Hemoglobin A1c % 5.9 %; LDL Cholesterol Calculated 118 mg/dl; Potassium 4.1 mmol/L (3.3-5.1); Sodium 140 mmol/L (135-145); Total Protein 6.7 g/dL (6.5-8.0); Triglycerides 232 mg/dL
[2022-06-08 14:02] LABS: Thyroid Stimulating Hormone 2.04 uIU/mL (0.32-4.0)
[2022-06-08 14:17] LABS: Folate 9.3 ng/mL (> or = 4.0); Vitamin B12 208 pg/mL (200-900)
[2022-06-08 14:30] LABS: Creatinine Urine 157.34 mg/dL; Microalbumin Urine < 5.0 mg/L
== END 2022-06-08 11:53 | disposition home or self-care (01) ==
LOC: HO.LABR 11:52
PROVIDERS: Absent Provider Internal Medicine; PCP Internal Medicine; Visit Provider Clinical Nurse Specialist Psychiatric/Mental Health, Adult
DX: E11.65 Type 2 diabetes mellitus with hyperglycemia (principal); E78.1 Pure hyperglyceridemia; E78.00 Pure hypercholesterolemia, unspecified
CPT/HCPCS: 36415; 80053; 80061; 82043; 82607; 82746; 83036; 84439; 84443; 85025

== ENCOUNTER 2022-07-01 13:23 | Outpatient (REF) | payer MEDICARE, MEDICAID, SELFPAY ==
[2022-07-01 13:38] LABS: MANUAL DIFF FLAG NO
[2022-07-01 14:18] LABS: Basophils Absolute Auto 0.1 X10*3/uL (0.0-0.2); Basophils Percent Auto 0.6 % (0-2); Hematocrit 39.8 % (42.0-52.0); Hemoglobin 13.6 g/dl (14.0-18.0); Imm Gran Abs Auto 0.07 X10*3/uL (0.00-0.03); Imm Gran Pct Auto 0.9 % (0.0-0.4); Lymphocytes Absolute Auto 2.3 X10*3/uL (1.2-4.9); Lymphocytes Percent Auto 27.7 % (20-40); Mean Corpuscular HGB Conc 34.2 g/dl (31.0-36.0); Mean Corpuscular Hemoglobin 27.9 pg (27.0-33.0); Mean Corpuscular Volume 81.6 fL (80.0-98.0); Mean Platelet Volume 9.8 fL (9.4-12.4); Monocytes Absolute Auto 0.6 X10*3/uL (0.1-1.2); Monocytes Percent Auto 6.9 % (2-11); Neutrophils Absolute Auto 5.2 x10*3/uL (2.0-8.3); Neutrophils Percent Auto 63.9 % (45-73); Platelet Count 367 X10*3/uL (160-400); Red Blood Count 4.88 X10*6/uL (4.60-5.80); Red Cell Distribution Width 12.6 % (11.0-16.0); White Blood Count 8.2 X10*3/uL (4.8-10.8)
== END 2022-07-01 13:24 | disposition home or self-care (01) ==
LOC: HO.LAB 13:23
PROVIDERS: Visit Provider Clinical Nurse Specialist Psychiatric/Mental Health, Adult
DX: Z79.899 Other long term (current) drug therapy (principal)
CPT/HCPCS: 36415; 85025

== ENCOUNTER 2022-07-29 13:26 | Outpatient (REF) | payer MEDICARE, MEDICAID, SELFPAY ==
[2022-07-29 13:49] LABS: MANUAL DIFF FLAG NO
[2022-07-29 14:19] LABS: Basophils Absolute Auto 0.1 X10*3/uL (0.0-0.2); Basophils Percent Auto 0.5 % (0-2); Eosinophils Percent Auto 0.1 % (0-4); Hematocrit 40.5 % (42.0-52.0); Hemoglobin 13.8 g/dl (14.0-18.0); Imm Gran Abs Auto 0.06 X10*3/uL (0.00-0.03); Imm Gran Pct Auto 0.6 % (0.0-0.4); Lymphocytes Absolute Auto 3.1 X10*3/uL (1.2-4.9); Lymphocytes Percent Auto 30.9 % (20-40); Mean Corpuscular HGB Conc 34.1 g/dl (31.0-36.0); Mean Corpuscular Hemoglobin 27.9 pg (27.0-33.0); Mean Corpuscular Volume 81.8 fL (80.0-98.0); Mean Platelet Volume 9.9 fL (9.4-12.4); Monocytes Absolute Auto 0.7 X10*3/uL (0.1-1.2); Monocytes Percent Auto 6.8 % (2-11); Neut%MD 61.1 %; Neutrophils Absolute Auto 6.1 x10*3/uL (2.0-8.3); Neutrophils Percent Auto 61.1 % (45-73); Platelet Count 336 X10*3/uL (160-400); Red Blood Count 4.95 X10*6/uL (4.60-5.80); Red Cell Distribution Width 12.8 % (11.0-16.0); WBCANC 9.9 X10*3/uL; White Blood Count 9.9 X10*3/uL (4.8-10.8)
== END 2022-07-29 13:27 | disposition home or self-care (01) ==
LOC: HO.LAB 13:26
PROVIDERS: Visit Provider Clinical Nurse Specialist Psychiatric/Mental Health, Adult
DX: Z79.899 Other long term (current) drug therapy (principal)
CPT/HCPCS: 36415; 85025

== ENCOUNTER 2022-08-27 14:17 | Outpatient (REF) | payer MEDICARE, MEDICAID, SELFPAY ==
[2022-08-27 14:28] LABS: MANUAL DIFF FLAG NO
[2022-08-27 15:05] LABS: Basophils Absolute Auto 0.1 X10*3/uL (0.0-0.2); Basophils Percent Auto 0.5 % (0-2); Eosinophils Percent Auto 0.1 % (0-4); Hematocrit 39.9 % (42.0-52.0); Hemoglobin 13.5 g/dl (14.0-18.0); Imm Gran Abs Auto 0.07 X10*3/uL (0.00-0.03); Imm Gran Pct Auto 0.7 % (0.0-0.4); Lymphocytes Absolute Auto 2.4 X10*3/uL (1.2-4.9); Lymphocytes Percent Auto 23.9 % (20-40); Mean Corpuscular HGB Conc 33.8 g/dl (31.0-36.0); Mean Corpuscular Hemoglobin 27.4 pg (27.0-33.0); Mean Corpuscular Volume 80.9 fL (80.0-98.0); Mean Platelet Volume 9.5 fL (9.4-12.4); Monocytes Absolute Auto 0.8 X10*3/uL (0.1-1.2); Monocytes Percent Auto 7.4 % (2-11); Neut%MD 67.4 %; Neutrophils Absolute Auto 6.8 x10*3/uL (2.0-8.3); Neutrophils Percent Auto 67.4 % (45-73); Platelet Count 352 X10*3/uL (160-400); Red Blood Count 4.93 X10*6/uL (4.60-5.80); Red Cell Distribution Width 12.7 % (11.0-16.0); WBCANC 10.1 X10*3/uL; White Blood Count 10.1 X10*3/uL (4.8-10.8)
== END 2022-08-27 14:18 | disposition home or self-care (01) ==
LOC: HO.LAB 14:17
PROVIDERS: PCP Internal Medicine; Visit Provider Clinical Nurse Specialist Psychiatric/Mental Health, Adult
DX: Z79.899 Other long term (current) drug therapy (principal)
CPT/HCPCS: 36415; 85025

== ENCOUNTER 2022-09-23 10:26 | Outpatient (REF) | payer MEDICARE, MEDICAID, SELFPAY ==
[2022-09-23 10:40] LABS: MANUAL DIFF FLAG NO
[2022-09-23 10:48] LABS: Basophils Absolute Auto 0.1 X10*3/uL (0.0-0.2); Basophils Percent Auto 0.6 % (0-2); Hematocrit 38.8 % (42.0-52.0); Hemoglobin 13.7 g/dl (14.0-18.0); Imm Gran Abs Auto 0.05 X10*3/uL (0.00-0.03); Imm Gran Pct Auto 0.6 % (0.0-0.4); Lymphocytes Absolute Auto 2.4 X10*3/uL (1.2-4.9); Lymphocytes Percent Auto 29.1 % (20-40); Mean Corpuscular HGB Conc 35.3 g/dl (31.0-36.0); Mean Corpuscular Hemoglobin 29.3 pg (27.0-33.0); Mean Corpuscular Volume 83.1 fL (80.0-98.0); Mean Platelet Volume 9.4 fL (9.4-12.4); Monocytes Absolute Auto 0.5 X10*3/uL (0.1-1.2); Monocytes Percent Auto 6.2 % (2-11); Neut%MD 63.5 %; Neutrophils Absolute Auto 5.3 x10*3/uL (2.0-8.3); Neutrophils Percent Auto 63.5 % (45-73); Platelet Count 269 X10*3/uL (160-400); Red Blood Count 4.67 X10*6/uL (4.60-5.80); Red Cell Distribution Width 13.1 % (11.0-16.0); WBCANC 8.4 X10*3/uL; White Blood Count 8.4 X10*3/uL (4.8-10.8)
== END 2022-09-23 10:27 | disposition home or self-care (01) ==
LOC: HO.LABR 10:26
PROVIDERS: Visit Provider Clinical Nurse Specialist Psychiatric/Mental Health, Adult
DX: Z79.899 Other long term (current) drug therapy (principal)
CPT/HCPCS: 36415; 85025

== ENCOUNTER 2022-10-20 12:37 | Outpatient (REF) | payer MEDICARE, MEDICAID, SELFPAY ==
[2022-10-20 12:55] LABS: MANUAL DIFF FLAG NO
[2022-10-20 13:53] LABS: Basophils Absolute Auto 0.1 X10*3/uL (0.0-0.2); Basophils Percent Auto 0.5 % (0-2); Eosinophils Percent Auto 0.1 % (0-4); Hematocrit 39.8 % (42.0-52.0); Hemoglobin 13.6 g/dl (14.0-18.0); Imm Gran Abs Auto 0.06 X10*3/uL (0.00-0.03); Imm Gran Pct Auto 0.6 % (0.0-0.4); Immature Retic Fraction 9.1 % (2.3-13.4); Lymphocytes Absolute Auto 2.7 X10*3/uL (1.2-4.9); Lymphocytes Percent Auto 27.5 % (20-40); Mean Corpuscular HGB Conc 34.2 g/dl (31.0-36.0); Mean Corpuscular Hemoglobin 28.2 pg (27.0-33.0); Mean Corpuscular Volume 82.4 fL (80.0-98.0); Monocytes Absolute Auto 0.6 X10*3/uL (0.1-1.2); Monocytes Percent Auto 6.2 % (2-11); Neutrophils Absolute Auto 6.4 x10*3/uL (2.0-8.3); Neutrophils Percent Auto 65.1 % (45-73); Platelet Count 324 X10*3/uL (160-400); Red Blood Count 4.83 X10*6/uL (4.60-5.80); Red Cell Distribution Width 12.3 % (11.0-16.0); Retic HGB Equivalent 34.7 pg (30.0-35.0); Reticulocyte Percent 1.3 % (0.5-1.8); Reticulocytes Absolute 0.065 X10*6/uL (0.026-0.095); White Blood Count 9.8 X10*3/uL (4.8-10.8)
[2022-10-20 14:13] LABS: Estimated Average Glucose 157 mg/dL; Hemoglobin A1c % 7.1 %
[2022-10-20 15:35] LABS: Alanine Aminotransferase 20 U/L (0-40); Albumin Level 4.6 g/dL (3.5-5.0); Alkaline Phosphatase 86 U/L (39-117); Anion Gap 16 (12-20); Aspartate Amino Transferase 16 U/L (5-37); Bilirubin Total 0.5 mg/dL (0.0-1.0); Blood Urea Nitrogen 9 mg/dL (9-16); Calcium 9.3 mg/dL (8.4-10.2); Carbon Dioxide 20 mmol/L (22-29); Chloride 110 mmol/L (96-108); Cholesterol 220 mg/dL; Estimated Glomerular Filt Rate > 60; Ferritin 152 ng/mL (20-250); Glucose Random 85 mg/dL (60-115); HDL Cholesterol 43 mg/dL; Iron 78 mcg/dL (45-160); LDL Cholesterol Calculated 133 mg/dl; Percent Iron Saturation 20 % (15-50); Potassium 3.8 mmol/L (3.3-5.1); Sodium 142 mmol/L (135-145); Total Iron Binding Capacity 384 mcg/dL (228-428); Triglycerides 221 mg/dL; Unsaturated Iron Binding 306 ug/dL
[2022-10-20 15:42] LABS: Folate 7.2 ng/mL (> or = 4.0); Vitamin B12 980 pg/mL (200-900)
== END 2022-10-20 12:38 | disposition home or self-care (01) ==
LOC: HO.LABR 12:37
PROVIDERS: PCP Internal Medicine; Visit Provider Clinical Nurse Specialist Psychiatric/Mental Health, Adult
DX: E78.00 Pure hypercholesterolemia, unspecified (principal); Z79.899 Other long term (current) drug therapy
CPT/HCPCS: 36415; 80053; 80061; 82607; 82728; 82746; 83036; 83540; 85025; 85045

== ENCOUNTER 2022-10-28 15:28 | Outpatient (REF) | payer MEDICARE, MEDICAID, SELFPAY ==
[2022-10-28 17:03] LABS: Creatinine Urine 12.41 mg/dL
== END 2022-10-28 15:29 | disposition home or self-care (01) ==
LOC: HO.LAB 15:28
PROVIDERS: PCP Internal Medicine; Visit Provider Internal Medicine
DX: Z13.89 Encounter for screening for other disorder (principal)

== ENCOUNTER 2022-11-11 13:24 | Outpatient (REF) | payer MEDICARE, MEDICAID, SELFPAY ==
[2022-11-11 13:30] LABS: MANUAL DIFF FLAG NO
[2022-11-11 13:47] LABS: Basophils Percent Auto 0.4 % (0-2); Hematocrit 40.4 % (42.0-52.0); Hemoglobin 13.9 g/dl (14.0-18.0); Imm Gran Abs Auto 0.07 X10*3/uL (0.00-0.03); Imm Gran Pct Auto 0.7 % (0.0-0.4); Lymphocytes Absolute Auto 2.8 X10*3/uL (1.2-4.9); Lymphocytes Percent Auto 28.1 % (20-40); Mean Corpuscular HGB Conc 34.4 g/dl (31.0-36.0); Mean Corpuscular Hemoglobin 28.8 pg (27.0-33.0); Mean Corpuscular Volume 83.8 fL (80.0-98.0); Mean Platelet Volume 9.3 fL (9.4-12.4); Monocytes Absolute Auto 0.6 X10*3/uL (0.1-1.2); Monocytes Percent Auto 6.3 % (2-11); Neut%MD 64.5 %; Neutrophils Absolute Auto 6.4 x10*3/uL (2.0-8.3); Neutrophils Percent Auto 64.5 % (45-73); Platelet Count 341 X10*3/uL (160-400); Red Blood Count 4.82 X10*6/uL (4.60-5.80); Red Cell Distribution Width 12.3 % (11.0-16.0); WBCANC 9.9 X10*3/uL; White Blood Count 9.9 X10*3/uL (4.8-10.8)
== END 2022-11-11 13:25 | disposition home or self-care (01) ==
LOC: HO.LABR 13:24
PROVIDERS: PCP Internal Medicine; Visit Provider Clinical Nurse Specialist Psychiatric/Mental Health, Adult
DX: Z79.899 Other long term (current) drug therapy (principal)
CPT/HCPCS: 36415; 85025

== ENCOUNTER 2022-12-09 14:00 | Outpatient (REF) | payer MEDICARE, MEDICAID, SELFPAY ==
[2022-12-09 14:15] LABS: MANUAL DIFF FLAG NO
[2022-12-09 15:33] LABS: Basophils Absolute Auto 0.1 X10*3/uL (0.0-0.2); Basophils Percent Auto 0.5 % (0-2); Eosinophils Percent Auto 0.1 % (0-4); Hematocrit 40.8 % (42.0-52.0); Hemoglobin 14.1 g/dl (14.0-18.0); Imm Gran Abs Auto 0.09 X10*3/uL (0.00-0.03); Imm Gran Pct Auto 0.8 % (0.0-0.4); Lymphocytes Absolute Auto 2.6 X10*3/uL (1.2-4.9); Lymphocytes Percent Auto 23.8 % (20-40); Mean Corpuscular HGB Conc 34.6 g/dl (31.0-36.0); Mean Corpuscular Hemoglobin 27.8 pg (27.0-33.0); Mean Corpuscular Volume 80.5 fL (80.0-98.0); Mean Platelet Volume 9.7 fL (9.4-12.4); Monocytes Absolute Auto 0.7 X10*3/uL (0.1-1.2); Monocytes Percent Auto 6.5 % (2-11); Neutrophils Absolute Auto 7.5 x10*3/uL (2.0-8.3); Neutrophils Percent Auto 68.3 % (45-73); Platelet Count 329 X10*3/uL (160-400); Red Blood Count 5.07 X10*6/uL (4.60-5.80)
== END 2022-12-09 14:01 | disposition home or self-care (01) ==
LOC: HO.LABR 14:00
PROVIDERS: PCP Internal Medicine; Visit Provider Clinical Nurse Specialist Psychiatric/Mental Health, Adult
DX: Z79.899 Other long term (current) drug therapy (principal)
CPT/HCPCS: 36415; 85025

== ENCOUNTER 2023-01-07 10:07 | Outpatient (REF) | payer MEDICARE, MEDICAID, SELFPAY ==
[2023-01-07 11:22] LABS: MANUAL DIFF FLAG NO
[2023-01-07 11:35] LABS: Basophils Absolute Auto 0.1 X10*3/uL (0.0-0.2); Basophils Percent Auto 0.6 % (0-2); Eosinophils Percent Auto 0.1 % (0-4); Hematocrit 39.2 % (42.0-52.0); Hemoglobin 13.7 g/dl (14.0-18.0); Imm Gran Abs Auto 0.09 X10*3/uL (0.00-0.03); Lymphocytes Absolute Auto 2.8 X10*3/uL (1.2-4.9); Mean Corpuscular HGB Conc 34.9 g/dl (31.0-36.0); Mean Corpuscular Hemoglobin 28.5 pg (27.0-33.0); Mean Corpuscular Volume 81.5 fL (80.0-98.0); Mean Platelet Volume 9.8 fL (9.4-12.4); Monocytes Absolute Auto 0.6 X10*3/uL (0.1-1.2); Monocytes Percent Auto 6.5 % (2-11); Neutrophils Absolute Auto 5.5 x10*3/uL (2.0-8.3); Neutrophils Percent Auto 60.8 % (45-73); Platelet Count 351 X10*3/uL (160-400); Red Blood Count 4.81 X10*6/uL (4.60-5.80); Red Cell Distribution Width 12.1 % (11.0-16.0)
== END 2023-01-07 10:08 | disposition home or self-care (01) ==
LOC: HO.HMGCLR 10:07
PROVIDERS: PCP Internal Medicine; Visit Provider Clinical Nurse Specialist Psychiatric/Mental Health, Adult
DX: Z79.899 Other long term (current) drug therapy (principal)
CPT/HCPCS: 36415; 85025

== ENCOUNTER 2023-02-04 14:21 | Outpatient (REF) | payer MEDICARE, MEDICAID, SELFPAY ==
[2023-02-04 14:34] LABS: MANUAL DIFF FLAG NO
[2023-02-04 15:17] LABS: Basophils Absolute Auto 0.1 X10*3/uL (0.0-0.2); Basophils Percent Auto 0.5 % (0-2); Eosinophils Percent Auto 0.1 % (0-4); Hematocrit 39.1 % (42.0-52.0); Hemoglobin 13.5 g/dl (14.0-18.0); Imm Gran Abs Auto 0.08 X10*3/uL (0.00-0.03); Imm Gran Pct Auto 0.7 % (0.0-0.4); Lymphocytes Absolute Auto 2.8 X10*3/uL (1.2-4.9); Lymphocytes Percent Auto 25.9 % (20-40); Mean Corpuscular HGB Conc 34.5 g/dl (31.0-36.0); Mean Corpuscular Hemoglobin 28.3 pg (27.0-33.0); Mean Platelet Volume 9.7 fL (9.4-12.4); Monocytes Absolute Auto 0.6 X10*3/uL (0.1-1.2); Monocytes Percent Auto 5.5 % (2-11); Neutrophils Absolute Auto 7.2 x10*3/uL (2.0-8.3); Neutrophils Percent Auto 67.3 % (45-73); Platelet Count 295 X10*3/uL (160-400); Red Blood Count 4.77 X10*6/uL (4.60-5.80); Red Cell Distribution Width 12.2 % (11.0-16.0); White Blood Count 10.7 X10*3/uL (4.8-10.8)
[2023-02-08 07:08] LABS: Clozapine (Clozaril) 351 mcg/L; Norclozapine 253 mcg/L (25-400)
== END 2023-02-04 14:22 | disposition home or self-care (01) ==
LOC: HO.LABR 14:21
PROVIDERS: PCP Internal Medicine; Visit Provider Clinical Nurse Specialist Psychiatric/Mental Health, Adult
DX: Z79.899 Other long term (current) drug therapy (principal)
CPT/HCPCS: 36415; 80159; 85025

== ENCOUNTER 2023-02-23 13:15 | Outpatient (REF) | payer MEDICARE, MEDICAID, SELFPAY ==
[2023-02-23 13:52] LABS: Alanine Aminotransferase 23 U/L (0-40); Albumin Level 4.4 g/dL (3.5-5.0); Alkaline Phosphatase 84 U/L (39-117); Anion Gap 13 (12-20); Aspartate Amino Transferase 18 U/L (5-37); Bilirubin Total 0.5 mg/dL (0.0-1.0); Blood Urea Nitrogen 5 mg/dL (9-16); Calcium 9.1 mg/dL (8.4-10.2); Carbon Dioxide 23 mmol/L (22-29); Chloride 109 mmol/L (96-108); Cholesterol 199 mg/dL; Estimated Glomerular Filt Rate > 60; Glucose Random 124 mg/dL (60-115); HDL Cholesterol 45 mg/dL; LDL Cholesterol Calculated 128 mg/dl; Potassium 4.1 mmol/L (3.3-5.1); Sodium 141 mmol/L (135-145); Total Protein 6.5 g/dL (6.5-8.0); Triglycerides 132 mg/dL
[2023-02-23 15:00] LABS: Estimated Average Glucose 200 mg/dL; Hemoglobin A1c % 8.6 %
== END 2023-02-23 13:16 | disposition home or self-care (01) ==
LOC: HO.LABR 13:15
PROVIDERS: PCP Internal Medicine; Visit Provider Internal Medicine
DX: E78.00 Pure hypercholesterolemia, unspecified (principal); E11.65 Type 2 diabetes mellitus with hyperglycemia
CPT/HCPCS: 36415; 80053; 80061; 83036

== ENCOUNTER 2023-03-04 15:04 | Outpatient (REF) | payer MEDICARE, MEDICAID, SELFPAY ==
[2023-03-04 15:21] LABS: MANUAL DIFF FLAG NO
[2023-03-04 15:36] LABS: Basophils Percent Auto 0.3 % (0-2); Eosinophils Percent Auto 0.1 % (0-4); Hematocrit 37.6 % (42.0-52.0); Hemoglobin 13.2 g/dl (14.0-18.0); Imm Gran Abs Auto 0.07 X10*3/uL (0.00-0.03); Imm Gran Pct Auto 0.8 % (0.0-0.4); Lymphocytes Absolute Auto 2.4 X10*3/uL (1.2-4.9); Lymphocytes Percent Auto 26.8 % (20-40); Mean Corpuscular HGB Conc 35.1 g/dl (31.0-36.0); Mean Corpuscular Hemoglobin 28.4 pg (27.0-33.0); Mean Corpuscular Volume 80.9 fL (80.0-98.0); Mean Platelet Volume 9.3 fL (9.4-12.4); Monocytes Absolute Auto 0.6 X10*3/uL (0.1-1.2); Neutrophils Absolute Auto 5.8 x10*3/uL (2.0-8.3); Platelet Count 319 X10*3/uL (160-400); Red Blood Count 4.65 X10*6/uL (4.60-5.80); Red Cell Distribution Width 12.1 % (11.0-16.0); White Blood Count 8.9 X10*3/uL (4.8-10.8)
== END 2023-03-04 15:05 | disposition home or self-care (01) ==
LOC: HO.LABR 15:04
PROVIDERS: Clinical Nurse Specialist Psychiatric/Mental Health, Adult; PCP Internal Medicine; Visit Provider Internal Medicine
DX: Z79.899 Other long term (current) drug therapy (principal)
CPT/HCPCS: 36415; 85025

== ENCOUNTER 2023-04-01 13:26 | Outpatient (REF) | payer MEDICARE, MEDICAID, SELFPAY ==
[2023-04-01 13:42] LABS: MANUAL DIFF FLAG NO
[2023-04-01 15:07] LABS: Basophils Absolute Auto 0.1 X10*3/uL (0.0-0.2); Basophils Percent Auto 0.5 % (0-2); Eosinophils Percent Auto 0.2 % (0-4); Hematocrit 38.9 % (42.0-52.0); Hemoglobin 13.4 g/dl (14.0-18.0); Lymphocytes Absolute Auto 2.5 X10*3/uL (1.2-4.9); Lymphocytes Percent Auto 25.8 % (20-40); Mean Corpuscular HGB Conc 34.4 g/dl (31.0-36.0); Mean Corpuscular Hemoglobin 28.2 pg (27.0-33.0); Mean Corpuscular Volume 81.7 fL (80.0-98.0); Mean Platelet Volume 9.9 fL (9.4-12.4); Monocytes Absolute Auto 0.7 X10*3/uL (0.1-1.2); Monocytes Percent Auto 6.7 % (2-11); Neutrophils Absolute Auto 6.5 x10*3/uL (2.0-8.3); Neutrophils Percent Auto 65.8 % (45-73); Platelet Count 370 X10*3/uL (160-400); Red Blood Count 4.76 X10*6/uL (4.60-5.80); White Blood Count 9.8 X10*3/uL (4.8-10.8)
== END 2023-04-01 13:27 | disposition home or self-care (01) ==
LOC: HO.LABR 13:26
PROVIDERS: Visit Provider Clinical Nurse Specialist Psychiatric/Mental Health, Adult
DX: Z79.899 Other long term (current) drug therapy (principal)
CPT/HCPCS: 36415; 85025

== ENCOUNTER 2023-05-05 13:57 | Outpatient (REF) | payer MEDICARE, MEDICAID, SELFPAY ==
[2023-05-05 14:17] LABS: MANUAL DIFF FLAG NO
[2023-05-05 14:52] LABS: Basophils Absolute Auto 0.1 X10*3/uL (0.0-0.2); Basophils Percent Auto 0.4 % (0-2); Eosinophils Percent Auto 0.2 % (0-4); Hematocrit 35.5 % (42.0-52.0); Hemoglobin 12.4 g/dl (14.0-18.0); Imm Gran Abs Auto 0.08 X10*3/uL (0.00-0.03); Imm Gran Pct Auto 0.7 % (0.0-0.4); Lymphocytes Absolute Auto 2.5 X10*3/uL (1.2-4.9); Lymphocytes Percent Auto 21.5 % (20-40); Mean Corpuscular HGB Conc 34.9 g/dl (31.0-36.0); Mean Corpuscular Hemoglobin 28.4 pg (27.0-33.0); Mean Corpuscular Volume 81.4 fL (80.0-98.0); Mean Platelet Volume 9.8 fL (9.4-12.4); Monocytes Absolute Auto 0.6 X10*3/uL (0.1-1.2); Monocytes Percent Auto 5.2 % (2-11); Neutrophils Absolute Auto 8.4 x10*3/uL (2.0-8.3); Platelet Count 307 X10*3/uL (160-400); Red Blood Count 4.36 X10*6/uL (4.60-5.80); Red Cell Distribution Width 11.8 % (11.0-16.0); White Blood Count 11.7 X10*3/uL (4.8-10.8)
== END 2023-05-05 13:58 | disposition home or self-care (01) ==
LOC: HO.LABR 13:57
PROVIDERS: Visit Provider Clinical Nurse Specialist Psychiatric/Mental Health, Adult
DX: Z79.899 Other long term (current) drug therapy (principal)
CPT/HCPCS: 36415; 85025

== ENCOUNTER 2023-05-31 13:52 | Outpatient (REF) | payer MEDICARE, MEDICAID, SELFPAY | END 2023-05-31 13:53 | disposition home or self-care (01) | LOC: HO.LABR 13:52 | PROVIDERS: PCP Internal Medicine; Visit Provider Clinical Nurse Specialist Psychiatric/Mental Health, Adult | DX: Z79.899 Other long term (current) drug therapy (principal) | CPT/HCPCS: 36415; 85025 ==

== ENCOUNTER 2023-06-30 10:29 | Outpatient (REF) | payer MEDICARE, MEDICAID, SELFPAY ==
[2023-06-30 10:38] LABS: MANUAL DIFF FLAG NO
[2023-06-30 11:51] LABS: Basophils Absolute Auto 0.1 X10*3/uL (0.0-0.2); Basophils Percent Auto 0.6 % (0-2); Eosinophils Percent Auto 0.3 % (0-4); Hematocrit 38.6 % (42.0-52.0); Hemoglobin 13.4 g/dl (14.0-18.0); Imm Gran Abs Auto 0.09 X10*3/uL (0.00-0.03); Mean Corpuscular HGB Conc 34.7 g/dl (31.0-36.0); Mean Corpuscular Hemoglobin 28.3 pg (27.0-33.0); Mean Corpuscular Volume 81.4 fL (80.0-98.0); Mean Platelet Volume 10.4 fL (9.4-12.4); Monocytes Absolute Auto 0.6 X10*3/uL (0.1-1.2); Monocytes Percent Auto 6.4 % (2-11); Neutrophils Percent Auto 68.7 % (45-73); Platelet Count 314 X10*3/uL (160-400); Red Blood Count 4.74 X10*6/uL (4.60-5.80); Red Cell Distribution Width 11.8 % (11.0-16.0); White Blood Count 8.8 X10*3/uL (4.8-10.8)
[2023-06-30 12:26] LABS: Alanine Aminotransferase 19 U/L (0-40); Albumin Level 4.4 g/dL (3.5-5.0); Alkaline Phosphatase 66 U/L (39-117); Anion Gap 17 (12-20); Aspartate Amino Transferase 14 U/L (5-37); Bilirubin Total 0.5 mg/dL (0.0-1.0); Blood Urea Nitrogen 10 mg/dL (9-16); Calcium 9.6 mg/dL (8.4-10.2); Carbon Dioxide 20 mmol/L (22-29); Chloride 100 mmol/L (96-108); Cholesterol 156 mg/dL; Estimated Glomerular Filt Rate > 60; Glucose Random 274 mg/dL (60-115); HDL Cholesterol 35 mg/dL; LDL Cholesterol Calculated 76 mg/dl; Potassium 3.6 mmol/L (3.3-5.1); Sodium 133 mmol/L (135-145); Triglycerides 226 mg/dL
== END 2023-06-30 10:30 | disposition home or self-care (01) ==
LOC: HO.LAB 10:29
PROVIDERS: PCP Internal Medicine; Visit Provider Internal Medicine
DX: E78.00 Pure hypercholesterolemia, unspecified (principal)
CPT/HCPCS: 36415; 80053; 80061; 85025

== ENCOUNTER 2023-07-29 13:15 | Outpatient (REF) | payer MEDICARE, MEDICAID, SELFPAY ==
[2023-07-29 13:24] LABS: MANUAL DIFF FLAG NO
[2023-07-29 13:43] LABS: Basophils Absolute Auto 0.1 X10*3/uL (0.0-0.2); Basophils Percent Auto 0.5 % (0-2); Eosinophils Percent Auto 0.4 % (0-4); Hematocrit 37.7 % (42.0-52.0); Hemoglobin 13.1 g/dl (14.0-18.0); Imm Gran Abs Auto 0.07 X10*3/uL (0.00-0.03); Imm Gran Pct Auto 0.6 % (0.0-0.4); Lymphocytes Absolute Auto 2.3 X10*3/uL (1.2-4.9); Lymphocytes Percent Auto 20.5 % (20-40); Mean Corpuscular HGB Conc 34.7 g/dl (31.0-36.0); Mean Corpuscular Hemoglobin 28.4 pg (27.0-33.0); Mean Corpuscular Volume 81.8 fL (80.0-98.0); Mean Platelet Volume 9.5 fL (9.4-12.4); Monocytes Absolute Auto 0.6 X10*3/uL (0.1-1.2); Monocytes Percent Auto 5.3 % (2-11); Neutrophils Absolute Auto 8.1 x10*3/uL (2.0-8.3); Neutrophils Percent Auto 72.7 % (45-73); Platelet Count 336 X10*3/uL (160-400); Red Blood Count 4.61 X10*6/uL (4.60-5.80); Red Cell Distribution Width 12.4 % (11.0-16.0); White Blood Count 11.1 X10*3/uL (4.8-10.8)
== END 2023-07-29 13:16 | disposition home or self-care (01) ==
LOC: HO.LABR 13:15
PROVIDERS: Visit Provider Clinical Nurse Specialist Psychiatric/Mental Health, Adult
DX: Z79.899 Other long term (current) drug therapy (principal)
CPT/HCPCS: 36415; 85025

== ENCOUNTER 2023-08-26 15:02 | Outpatient (REF) | payer MEDICARE, MEDICAID, SELFPAY ==
[2023-08-26 15:17] LABS: MANUAL DIFF FLAG NO
[2023-08-26 15:27] LABS: Basophils Absolute Auto 0.1 X10*3/uL (0.0-0.2); Basophils Percent Auto 0.4 % (0-2); Eosinophils Absolute Auto 0.1 X10*3/uL (0.0-0.4); Eosinophils Percent Auto 0.7 % (0-4); Hematocrit 32.7 % (42.0-52.0); Hemoglobin 11.4 g/dl (14.0-18.0); Imm Gran Abs Auto 0.07 X10*3/uL (0.00-0.03); Imm Gran Pct Auto 0.6 % (0.0-0.4); Lymphocytes Absolute Auto 3.2 X10*3/uL (1.2-4.9); Lymphocytes Percent Auto 25.8 % (20-40); Mean Corpuscular HGB Conc 34.9 g/dl (31.0-36.0); Mean Corpuscular Hemoglobin 28.5 pg (27.0-33.0); Mean Corpuscular Volume 81.8 fL (80.0-98.0); Mean Platelet Volume 9.1 fL (9.4-12.4); Monocytes Absolute Auto 0.8 X10*3/uL (0.1-1.2); Monocytes Percent Auto 6.4 % (2-11); Neutrophils Absolute Auto 8.1 x10*3/uL (2.0-8.3); Neutrophils Percent Auto 66.1 % (45-73); Platelet Count 283 X10*3/uL (160-400); Red Cell Distribution Width 12.4 % (11.0-16.0); White Blood Count 12.3 X10*3/uL (4.8-10.8)
== END 2023-08-26 15:03 | disposition home or self-care (01) ==
LOC: HO.LABR 15:02
PROVIDERS: PCP Internal Medicine; Visit Provider Clinical Nurse Specialist Psychiatric/Mental Health, Adult
DX: Z79.899 Other long term (current) drug therapy (principal)
CPT/HCPCS: 36415; 85025

== ENCOUNTER 2023-09-08 12:59 | Outpatient (AMB) | payer MEDICARE, MEDICAID, SELFPAY ==
--- NOTE | 2023-09-08 13:27 | A.OFFPC_ITS ---
Vital Signs 09/08/23 13:29 Height 5 ft 10 in Weight 207 lb BMI 29.7 BP 128/82 Blood Pressure Location Lt brachial Position Sitting Pulse 124 H Pulse Source Pulse Oximeter Pulse Oximetry (%) 98 Oxygen Delivery Method Room Air Intake Visit Reasons: DM Allergies No Known Allergies [No Known Allergies*] Allergy (Verified 09/08/23 13:29) Medication List - Last Reconciled 09/08/23 by Ethan Issa MD acetaminophen ER (Tylenol 8 Hour) 650 mg PO Q4H atorvastatin 10 mg PO DAILY benztropine 1 mg PO DAILY benztropine 2 mg PO BEDTIME blood pressure monitor (Blood Pressure Kit) As directed blood sugar diagnostic (fintonicy No Coding strips) test daily clozapine (Clozaril) 400 mg PO BEDTIME clozapine (Clozaril) 100 mg PO BID cyanocobalamin (vitamin B-12) 1,000 mcg PO DAILY docusate sodium (Colace) 100 mg PO BID 30 days fenofibrate nanocrystallized (Tricor) 145 mg PO DAILY 90 days insulin glargine (Basaglar KwikPen U-100 Insulin) 15 units (0.15 mL) subcut QAM insulin needles (disposable) As directed lancets ([employer] Lancets) test daily lancets (BD Ultra Fine Lancets) once per day lisinopril 5 mg PO DAILY lorazepam (Ativan) 1 mg PO BID PRN magnesium hydroxide (Milk of Magnesia) 30 mL PO BEDTIME metformin 1,000 mg PO BID 90 days pen needle, diabetic (BD Ultra-Fine Mini Pen Needle) As directed injecting Lantus once a day risperidone microspheres ER (Risperdal Consta) 50 mg IM Q2W sennosides (senna) 17.2 mg (2 x 8.6 mg) PO BEDTIME sitagliptin phosphate (Januvia) 100 mg PO DAILY 90 days tirzepatide (Mounjaro) 5 mg (0.5 mL) subcut QWEEK Tobacco use date assessed: 02/23/23 Dental Screening Dental Screen Date: 09/08/23 Did you have a dental visit in the last 12 months?: No Did you have a dental problem in the last 6 months where you did not have access to dental care?: No Was dental information given to patient?: Patient has dentist HPI DM HPI Details 43-year-old obese male with diabetes henrietta litus uncontrolled hypercholesterolemia hypertension and anemia coming in for follow-up. Patient is noncompliant presently on insulin metformin and Januvia. Patient was referred to endocrinology patient was started on Mounjaro 06/2023 PFSH Family History Other Lung cancer Social History Housing: Other Alcohol intake: never Patient Tobacco Use Status: Never used Tobacco Years Smoked: smokes pot e-Cigarette/Vaping Use: Never Used Second Hand Smoke Exposure: No Current occupational status: employed Cognitive needs: Yes Hearing needs: No Vision needs: No Questionnaire PHQ-9 Over the last 2 weeks, how often have you been bothered by any of the following problems? 1. Little interest or pleasure in doing things: not at all 2. Feeling down, depressed, or hopeless: not at all 3. Trouble falling or staying asleep, or sleeping too much: not at all 4. Feeling tired or having little energy: not at all 5. Poor appetite or overeating: not at all 6. Feeling bad about yourself - or that you are a failure or have let yourself or your family down: not at all 7. Trouble concentrating on things, such as reading the newspaper or watching television: not at all 8. Moving or speaking so slowly that other people could have noticed. Or the opposite - being so fidgety or restless that you have been moving around a lot more than usual: not at all 9. Thoughts that you would be better off or of hurting yourself in some way: not at all Total score: 0 Depression Screening Interpretation: Negative Depression Screening Done: Yes Source: Developed by Drs. Leonard Smallwood, Juan Jose Willams and colleagues, with an educational shana from [employer]. Thrive Questionnaire Date Thrive assessed: 02/23/23 AUDIT C Alcohol Use Questionnaire (AUDIT-C) 1. How often do you have a drink containing alcohol?: Never 3. How often do you have six or more drinks on one occasion?: Never Total Score: 0 DENISE-7 AMB Questionnaire DENISE-7 Date DENISE - 7 assessed: 02/23/23 Source: Developed by Drs. Leonard Smallwood, Alyssa Reyes, Juan Jose Hui and colleagues, with an educational shana from [employer]. Physical exam (Primary Care) Vital Signs: Last Vital Signs Pulse 124 H 09/08/23 13:29 BP 128/82 09/08/23 13:29 Pulse Ox 98 09/08/23 13:29 Oxygen Delivery Method Room Air 09/08/23 13:29 BMI result Body Mass Index 29.7 Tobacco/Smoking Status: Tobacco use Status Tobacco use date assessed 02/23/23 09/08/23 13:27 Patient Tobacco Use Status Never used Tobacco 09/08/23 13:27 e-Cigarette/Vaping Use Never Used 09/08/23 13:27 PHQ-9: PHQ-9 Score PHQ-9: Total score 0 09/08/23 13:45 Depression Screening Interpretation: Negative Thrive Assessment: Date of Thrive Assessment Date Thrive assessed 02/23/23 09/08/23 13:27 Const General: alert; No acute distress Eyes Conjunctivae: conjunctivae normal Resp Auscultation: clear to auscultation bilaterally Cardio Rate: regular rate Rhythm: regular rhythm GI Inspection: Yes normal to inspection Extrem General: Yes normal to inspection and No edema Office Procedures Flu Questionnaire Does the patient have a severe egg allergy?: No Does the patient have severe life threatening allergies?: No Does the patient have a fever or illness today?: No Has the patient ever had Guillain-Twisp Syndrome?: No Has the patient ever had any past reaction to a flu shot?: No Results AMB Hemoglobin A1c AMB Hemoglobin A1c 8.5 % Last Edit by Eunice Frazier CMA on 09/08/23 13 :53 Immunizations flu vacc [id number] 6mos up(PF) 60 mcg(15 mcgx4)/0.5 mL IM syringe Performing Provider: Ethan Issa MD [facility] [place] Documented (not given) by: Eunice Frazier CMA on 09/08/23 13:32 Reason Not Given: Patient Refused Assessment and Plan Assessment & Plan (1) Type 2 diabetes mellitus with hyperglycemia: Comment: [facility] Code(s): E11.65 - Type 2 diabetes mellitus with hyperglycemia Plan: Decrease the amount of carbohydrate intake, pasta, bread, rice and potatoes are all sugar and that is aside from all the sweet stuff, remember that fruits are good but they are Sweet also. Hemoglobin A1c goal of less than 6.5 metformin 1000 mg twice a day Januvia 100 mg once a day. Patient has seen Endocrinology and has started on Mounjaro (2) Obesity (BMI 30-39.9): Code(s): E66.9 - Obesity, unspecified Plan: Diet and exercise (3) Hypercholesterolemia: Code(s): E78.00 - Pure hypercholesterolemia, unspecified Plan: Avoid fried foods, chicken skin, eggs, butter margarine, pastries and meat. Be it pork or beef they have a lot of cholesterol June 2023 last blood work LDL goal of less than 100 patient is taking atorvastatin 10 mg once a day (4) Hypertension: Code(s): I10 - Essential (primary) hypertension Plan: Continue with blood pressure medication. Decrease salt intake and exercise patient is on lisinopril 5 mg once a day (5) Anemia: Code(s): D64.9 - Anemia, unspecified Plan: Chronic in will continue to monitor (6) Schizophrenia: Comment: [facility] Code(s): F20.9 - Schizophrenia, unspecified Plan: Continue follow-up with psychiatry and counseling Orders: Orders AMB Hemoglobin A1c Today Z13.9 - Encounter for screening, unspecified Influenza [id number] Immunization Today Z23 - Encounter for immunization Referrals Cologuard Test Z12.11 - Encounter for screening for malignant neoplasm of colon Medications: New tirzepatide (Mounjaro) 5 mg (0.5 mL) subcut QWEEK 2 mL 4RF E11.65 - Type 2 diabetes mellitus with hyperglycemia Coding Level of Care Code Est Pt Level 4 (58951) Diagnoses Type 2 diabetes mellitus with hyperglycemia E11.65 Obesity (BMI 30-39.9) E66.9 Hypercholesterolemia E78.00 Hypertension I10 Anemia D64.9 Schizophrenia F20.9
[2023-09-08 13:29] VITALS: BP 128/82; PULSE 124; O2SAT 98; BMI 29.7
== END 2023-09-08 14:03 | disposition home or self-care (01) ==
PROVIDERS: PCP Internal Medicine; Visit Provider Internal Medicine
DX: E11.65 Type 2 diabetes mellitus with hyperglycemia (principal); F20.9 Schizophrenia, unspecified; Z68.29 Body mass index [BMI] 29.0-29.9, adult; E66.9 Obesity, unspecified; E78.00 Pure hypercholesterolemia, unspecified; I10 Essential (primary) hypertension; D64.9 Anemia, unspecified
CPT/HCPCS: 83036; 99214

== ENCOUNTER 2023-09-23 10:37 | Outpatient (REF) | payer MEDICARE, MEDICAID, SELFPAY ==
[2023-09-23 10:49] LABS: MANUAL DIFF FLAG NO
[2023-09-23 11:56] LABS: Basophils Absolute Auto 0.1 X10*3/uL (0.0-0.2); Basophils Percent Auto 0.6 % (0-2); Eosinophils Absolute Auto 0.1 X10*3/uL (0.0-0.4); Eosinophils Percent Auto 0.7 % (0-4); Hematocrit 35.8 % (42.0-52.0); Hemoglobin 11.9 g/dl (14.0-18.0); Imm Gran Abs Auto 0.05 X10*3/uL (0.00-0.03); Imm Gran Pct Auto 0.6 % (0.0-0.4); Lymphocytes Absolute Auto 2.8 X10*3/uL (1.2-4.9); Lymphocytes Percent Auto 31.9 % (20-40); Mean Corpuscular HGB Conc 33.2 g/dl (31.0-36.0); Mean Corpuscular Hemoglobin 27.9 pg (27.0-33.0); Mean Platelet Volume 9.8 fL (9.4-12.4); Monocytes Absolute Auto 0.6 X10*3/uL (0.1-1.2); Monocytes Percent Auto 6.5 % (2-11); Neutrophils Absolute Auto 5.2 x10*3/uL (2.0-8.3); Neutrophils Percent Auto 59.7 % (45-73); Platelet Count 333 X10*3/uL (160-400); Red Blood Count 4.26 X10*6/uL (4.60-5.80); Red Cell Distribution Width 12.6 % (11.0-16.0); White Blood Count 8.6 X10*3/uL (4.8-10.8)
== END 2023-09-23 10:38 | disposition home or self-care (01) ==
LOC: HO.LAB 10:37
PROVIDERS: Visit Provider Clinical Nurse Specialist Psychiatric/Mental Health, Adult
DX: Z79.899 Other long term (current) drug therapy (principal)
CPT/HCPCS: 36415; 85025

== ENCOUNTER 2023-10-19 10:50 | Outpatient (REF) | payer MEDICARE, MEDICAID, SELFPAY ==
[2023-10-19 11:09] LABS: MANUAL DIFF FLAG NO
[2023-10-19 11:34] LABS: Basophils Percent Auto 0.4 % (0-2); Eosinophils Absolute Auto 0.1 X10*3/uL (0.0-0.4); Eosinophils Percent Auto 0.7 % (0-4); Hematocrit 35.6 % (42.0-52.0); Hemoglobin 12.4 g/dl (14.0-18.0); Imm Gran Abs Auto 0.05 X10*3/uL (0.00-0.03); Imm Gran Pct Auto 0.5 % (0.0-0.4); Lymphocytes Absolute Auto 2.7 X10*3/uL (1.2-4.9); Lymphocytes Percent Auto 27.7 % (20-40); Mean Corpuscular HGB Conc 34.8 g/dl (31.0-36.0); Mean Corpuscular Hemoglobin 28.6 pg (27.0-33.0); Mean Platelet Volume 9.3 fL (9.4-12.4); Monocytes Absolute Auto 0.5 X10*3/uL (0.1-1.2); Monocytes Percent Auto 5.5 % (2-11); Neutrophils Absolute Auto 6.3 x10*3/uL (2.0-8.3); Neutrophils Percent Auto 65.2 % (45-73); Platelet Count 327 X10*3/uL (160-400); Red Blood Count 4.34 X10*6/uL (4.60-5.80); Red Cell Distribution Width 12.4 % (11.0-16.0); White Blood Count 9.7 X10*3/uL (4.8-10.8)
== END 2023-10-19 10:51 | disposition home or self-care (01) ==
LOC: HO.LAB 10:50
PROVIDERS: PCP Internal Medicine; Visit Provider Clinical Nurse Specialist Psychiatric/Mental Health, Adult
DX: Z79.899 Other long term (current) drug therapy (principal)
CPT/HCPCS: 36415; 85025

== ENCOUNTER 2023-11-15 12:56 | Outpatient (REF) | payer MEDICARE, MEDICAID, SELFPAY ==
[2023-11-15 13:08] LABS: MANUAL DIFF FLAG NO
[2023-11-15 14:27] LABS: Basophils Percent Auto 0.5 % (0-2); Eosinophils Absolute Auto 0.1 X10*3/uL (0.0-0.4); Eosinophils Percent Auto 0.8 % (0-4); Hematocrit 33.2 % (42.0-52.0); Hemoglobin 11.3 g/dl (14.0-18.0); Imm Gran Abs Auto 0.05 X10*3/uL (0.00-0.03); Imm Gran Pct Auto 0.6 % (0.0-0.4); Lymphocytes Percent Auto 33.4 % (20-40); Mean Corpuscular Hemoglobin 28.8 pg (27.0-33.0); Mean Corpuscular Volume 84.5 fL (80.0-98.0); Mean Platelet Volume 10.1 fL (9.4-12.4); Monocytes Absolute Auto 0.6 X10*3/uL (0.1-1.2); Monocytes Percent Auto 6.4 % (2-11); Neutrophils Absolute Auto 5.2 x10*3/uL (2.0-8.3); Neutrophils Percent Auto 58.3 % (45-73); Platelet Count 319 X10*3/uL (160-400); Red Blood Count 3.93 X10*6/uL (4.60-5.80); Red Cell Distribution Width 12.2 % (11.0-16.0); White Blood Count 8.9 X10*3/uL (4.8-10.8)
== END 2023-11-15 12:57 | disposition home or self-care (01) ==
LOC: HO.LABR 12:56
PROVIDERS: Visit Provider Clinical Nurse Specialist Psychiatric/Mental Health, Adult
DX: Z79.899 Other long term (current) drug therapy (principal)
CPT/HCPCS: 36415; 85025

== ENCOUNTER 2023-11-18 12:56 | Outpatient (AMB) | payer MEDICARE, MEDICAID, SELFPAY ==
[2023-11-18 12:57] VITALS: BP 112/78; PULSE 103; O2SAT 98; BMI 30.4
--- NOTE | 2023-11-18 12:57 | MHC.PC.OV ---
Vital Signs 11/18/23 12:57 Height 5 ft 10 in Weight 212 lb 0.4 oz BMI 30.4 BP 112/78 Blood Pressure Location Lt brachial Position Sitting Pulse 103 H Pulse Source Pulse Oximeter Pulse Oximetry (%) 98 Oxygen Delivery Method Room Air Intake Visit Reasons: PE Tube Blower Required: No Allergies No Known Allergies [No Known Allergies*] Allergy (Verified 11/18/23 12:58) Medication List - Last Reconciled 11/18/23 by Ethan Issa MD acetaminophen ER (Tylenol 8 Hour) 650 mg PO Q4H atorvastatin 10 mg PO DAILY benztropine 1 mg PO DAILY benztropine 2 mg PO BEDTIME blood pressure monitor (Blood Pressure Kit) As directed blood sugar diagnostic ([employer] No Coding strips) test daily clozapine (Clozaril) 400 mg PO BEDTIME clozapine (Clozaril) 100 mg PO BID cyanocobalamin (vitamin B-12) 1,000 mcg PO DAILY docusate sodium (Colace) 100 mg PO BID 30 days fenofibrate nanocrystallized (Tricor) 145 mg PO DAILY 90 days insulin glargine (Basaglar KwikPen U-100 Insulin) 15 units (0.15 mL) subcut QAM insulin needles (disposable) As directed lancets (BD Ultra Fine Lancets) once per day lancets ([employer] Lancets) test daily lisinopril 5 mg PO DAILY lorazepam (Ativan) 1 mg PO BID PRN magnesium hydroxide (Milk of Magnesia) 30 mL PO BEDTIME metformin 1,000 mg PO BID 90 days pen needle, diabetic (BD Ultra-Fine Mini Pen Needle) As directed injecting Lantus once a day risperidone microspheres ER (Risperdal Consta) 50 mg IM Q2W sennosides (senna) 17.2 mg (2 x 8.6 mg) PO BEDTIME tirzepatide (Mounjaro) 5 mg (0.5 mL) subcut QWEEK Tobacco use date assessed: 11/18/23 Dental Screening Dental Screen Date: 11/18/23 Did you have a dental visit in the last 12 months?: No Did you have a dental problem in the last 6 months where you did not have access to dental care?: No HPI PE HPI Details 43-year-old obese male with schizophrenia, uncontrolled diabetes mellitus hypercholesterolemia hypertension coming in for physical exam. Patient is up-to-date with colonoscopy in 2015. Review of the notes has seen Endocrinology in November 03 2023 patient is on mounjaro metformin Basaglar hemoglobin A1c 7.7 PFSH Medical History (Updated 11/18/23 @ 13:18 by Ethan Issa MD) Type 2 diabetes mellitus with hyperglycemia Family History Other Lung cancer Social History (Updated 11/18/23 @ 13:21 by Ethan Issa MD) Housing: Other Alcohol intake: current Comment: once a week 1 Patient Tobacco Use Status: Never used Tobacco Years Smoked: smokes pot e-Cigarette/Vaping Use: Never Used Second Hand Smoke Exposure: No Current occupational status: employed Cognitive needs: Yes Hearing needs: No Vision needs: No Questionnaire PHQ-9 Over the last 2 weeks, how often have you been bothered by any of the following problems? 1. Little interest or pleasure in doing things: not at all 2. Feeling down, depressed, or hopeless: not at all 3. Trouble falling or staying asleep, or sleeping too much: not at all 4. Feeling tired or having little energy: not at all 5. Poor appetite or overeating: not at all 6. Feeling bad about yourself - or that you are a failure or have let yourself or your family down: not at all 7. Trouble concentrating on things, such as reading the newspaper or watching television: not at all 8. Moving or speaking so slowly that other people could have noticed. Or the opposite - being so fidgety or restless that you have been moving around a lot more than usual: not at all 9. Thoughts that you would be better off or of hurting yourself in some way: not at all Total score: 0 Depression Screening Interpretation: Negative Depression Screening Done: Yes Source: Developed by Drs. Leonard Smallwood, Alyssa Reyes, Juan Jose Hui and colleagues, with an educational shana from [employer]. Thrive Questionnaire Date Thrive assessed: 02/23/23 AUDIT C Alcohol Use Questionnaire (AUDIT-C) 1. How often do you have a drink containing alcohol?: Never 3. How often do you have six or more drinks on one occasion?: Never Total Score: 0 DENISE-7 AMB Questionnaire DENISE-7 Date DENISE - 7 assessed: 11/18/23 Feeling nervous, anxious, or on edge: 0 = Not at all Not being able to stop or control worryin = Not at all Worrying too much about different things: 0 = Not at all Trouble relaxin = Not at all Being so restless that it is hard to sit still: 0 = Not at all Becoming easily annoyed or irritable: 0 = Not at all Feeling afraid as if something awful might happen: 0 = Not at all Total DENISE-7 score (0-4 normal; 5-9 mild; 10-14 moderate; 15-21 severe): 0 Source: Developed by Drs. Leonard Smallwood, Alyssa Reyes, Juan Jose Hui and colleagues, with an educational shana from [employer]. Review of Systems Const Denies poor appetite and Denies weakness Eyes Denies no additional complaints ENT Reports Normal hearing present, Denies dizziness, Denies nasal congestion, Denies tinnitus and Denies sore throat Card Denies chest pain, Denies syncope, Denies rapid heart rate and Denies dyspnea Resp Denies cough and Denies dyspnea GI Denies change in stool character, Reports constipation, Denies diarrhea, Denies nausea and Denies vomiting Denies dysuria and Denies urinary frequency Neuro Reports Normal hearing present, Denies confusion, Denies dizziness, Denies syncope and Denies weakness Psych Denies confusion Physical exam (Primary Care) Vital Signs: Last Vital Signs Pulse 103 H 11/18/23 12:57 BP 112/78 11/18/23 12:57 Pulse Ox 98 11/18/23 12:57 Oxygen Delivery Method Room Air 11/18/23 12:57 BMI result Body Mass Index 30.4 Tobacco/Smoking Status: Tobacco use Status Tobacco use date assessed 11/18/23 11/18/23 13:01 Patient Tobacco Use Status Never used Tobacco 11/18/23 12:58 e-Cigarette/Vaping Use Never Used 11/18/23 12:58 PHQ-9: PHQ-9 Score PHQ-9: Total score 0 11/18/23 13:07 Depression Screening Interpretation: Negative Thrive Assessment: Date of Thrive Assessment Date Thrive assessed 02/23/23 11/18/23 12:58 Const Other: declinewd flu shot General: No confusion Orientation/consciousness: No confusion HENMT Head: Yes normocephalic Ears: external ears normal and TM's normal bilaterally Face and sinus: Yes normal facial exam Mouth: moist mucous membranes Throat: Yes tonsils normal Eyes Conjunctivae: conjunctivae normal Pupils: Equal, round and reactive pupils present and Pupil accommodation reflex normal Direct Ophthalmoscopy: normal light reflex Neck Neck: No lymphadenopathy Thyroid: Thyroid normal Chest Chest palpation & inspection: normal inspection of the chest Resp Effort & Inspection: normal respiratory effort and no audible wheezes Auscultation: clear to auscultation bilaterally, no crackles, no wheezes and lung sounds not diminished Cardio Rate: regular rate Rhythm: regular rhythm Peripheral pulses: radial pulses present and dorsalis pedis present GI Other: declined Palpation (GI): no masses Auscultation: normal bowel sounds and normoactive bowel sounds Rectal Exam - Male: Yes deferred Other: declined Skin General skin exam: no rashes or lesions noted Rashes: no rashes Neuro General: No confusion Cranial nerves: Yes Equal, round and reactive pupils present and Yes Normal hearing present Cognition (Neuro): normal cognition Gait exam (Neuro): Normal gait present Motor exam (neuro): 5/5 motor strength present throughout Deep tendon reflexes (DTR's): Right brachioradialis reflex intensity grade: 2+, Left brachioradialis reflex intensity grade: 2+, Right patellar reflex intensity grade: 2+ and Left patellar reflex intensity grade: 2+ Extrem General: No edema Results AMB Hemoglobin A1c AMB Hemoglobin A1c 8.2 % Last Edit by YVONNE Moy on 11/18/23 13:11 Assessment and Plan Assessment & Plan (1) Annual physical exam: Code(s): Z00.00 - Encounter for general adult medical examination without abnormal findings (2) Type 2 diabetes mellitus with hyperglycemia: Comment: [facility] Code(s): E11.65 - Type 2 diabetes mellitus with hyperglycemia Plan: Decrease the amount of carbohydrate intake, pasta, bread, rice and potatoes are all sugar and that is aside from all the sweet stuff, remember that fruits are good but they are Sweet also. Hemoglobin A1c goal of less than 6.5. Patient has seen endocrinology and the last A1c in September was 7.7 continuing with maddy Nova and metformin. Reminder about Ophthalmology and Podiatry follow-ups. (3) Obesity (BMI 30-39.9): Code(s): E66.9 - Obesity, unspecified Plan: Diet and exercise (4) Hypercholesterolemia: Code(s): E78.00 - Pure hypercholesterolemia, unspecified Plan: Avoid fried foods, chicken skin, eggs, butter margarine, pastries and meat. Be it pork or beef they have a lot of cholesterol LDL goal of less than 100 and triglyceride of less than 150 patient is presently on fenofibrate and atorvastatin (5) Hypertension: Code(s): I10 - Essential (primary) hypertension Plan: Continue with blood pressure medication. Decrease salt intake and exercise patient takes lisinopril 5 mg once a day (6) Schizophrenia: Comment: [facility] Code(s): F20.9 - Schizophrenia, unspecified Plan: Continue to follow-up with counseling and therapy. (7) Alcohol abuse: Code(s): F10.10 - Alcohol abuse, uncomplicated Plan: patient relates to me that he drinks 12 pack once a week Orders: Orders AMB Hemoglobin A1c Today E11.65 - Type 2 diabetes mellitus with hyperglycemia Coding Level of Care Code Est Pt Level 4 (00791) Est Pt Prev Care 40-64y(40060) Diagnoses Annual physical exam Z00.00 Type 2 diabetes mellitus with hyperglycemia E11.65 Obesity (BMI 30-39.9) E66.9 Hypercholesterolemia E78.00 Hypertension I10 Schizophrenia F20.9 Alcohol abuse F10.10
== END 2023-11-18 13:36 | disposition home or self-care (01) ==
PROVIDERS: Visit Provider Internal Medicine
DX: Z00.00 Encounter for general adult medical examination without abnormal findings (principal); E11.65 Type 2 diabetes mellitus with hyperglycemia; F20.9 Schizophrenia, unspecified; Z68.30 Body mass index [BMI] 30.0-30.9, adult; E66.9 Obesity, unspecified; E78.00 Pure hypercholesterolemia, unspecified; I10 Essential (primary) hypertension; F10.10 Alcohol abuse, uncomplicated
CPT/HCPCS: 83036; 99396

== ENCOUNTER 2023-12-15 10:17 | Outpatient (REF) | payer MEDICARE, MEDICAID, SELFPAY ==
[2023-12-15 10:35] LABS: MANUAL DIFF FLAG NO
[2023-12-15 10:52] LABS: Basophils Percent Auto 0.4 % (0-2); Eosinophils Percent Auto 0.2 % (0-4); Hematocrit 35.1 % (42.0-52.0); Hemoglobin 12.1 g/dl (14.0-18.0); Imm Gran Abs Auto 0.06 X10*3/uL (0.00-0.03); Imm Gran Pct Auto 0.5 % (0.0-0.4); Lymphocytes Absolute Auto 2.2 X10*3/uL (1.2-4.9); Lymphocytes Percent Auto 19.6 % (20-40); Mean Corpuscular HGB Conc 34.5 g/dl (31.0-36.0); Mean Corpuscular Volume 84.2 fL (80.0-98.0); Mean Platelet Volume 9.4 fL (9.4-12.4); Monocytes Absolute Auto 0.4 X10*3/uL (0.1-1.2); Monocytes Percent Auto 3.9 % (2-11); Neutrophils Absolute Auto 8.5 x10*3/uL (2.0-8.3); Neutrophils Percent Auto 75.4 % (45-73); Platelet Count 339 X10*3/uL (160-400); Red Blood Count 4.17 X10*6/uL (4.60-5.80); Red Cell Distribution Width 12.1 % (11.0-16.0); White Blood Count 11.3 X10*3/uL (4.8-10.8)
== END 2023-12-15 10:18 | disposition home or self-care (01) ==
LOC: HO.LABR 10:17
PROVIDERS: PCP Internal Medicine; Visit Provider Clinical Nurse Specialist Psychiatric/Mental Health, Adult
DX: Z79.899 Other long term (current) drug therapy (principal)
CPT/HCPCS: 36415; 85025

== ENCOUNTER 2024-01-12 12:06 | Outpatient (REF) | payer MEDICARE, MEDICAID, SELFPAY ==
[2024-01-12 12:31] LABS: MANUAL DIFF FLAG NO
[2024-01-12 13:02] LABS: Basophils Absolute Auto 0.1 X10*3/uL (0.0-0.2); Basophils Percent Auto 0.5 % (0-2); Eosinophils Percent Auto 0.4 % (0-4); Hematocrit 37.5 % (42.0-52.0); Hemoglobin 13.1 g/dl (14.0-18.0); Imm Gran Abs Auto 0.05 X10*3/uL (0.00-0.03); Imm Gran Pct Auto 0.5 % (0.0-0.4); Lymphocytes Absolute Auto 2.8 X10*3/uL (1.2-4.9); Lymphocytes Percent Auto 25.6 % (20-40); Mean Corpuscular HGB Conc 34.9 g/dl (31.0-36.0); Mean Corpuscular Hemoglobin 28.9 pg (27.0-33.0); Mean Corpuscular Volume 82.8 fL (80.0-98.0); Mean Platelet Volume 9.7 fL (9.4-12.4); Monocytes Absolute Auto 0.6 X10*3/uL (0.1-1.2); Monocytes Percent Auto 5.9 % (2-11); Neut%MD 67.1 %; Neutrophils Absolute Auto 7.2 x10*3/uL (2.0-8.3); Neutrophils Percent Auto 67.1 % (45-73); Platelet Count 335 X10*3/uL (160-400); Red Blood Count 4.53 X10*6/uL (4.60-5.80); Red Cell Distribution Width 12.3 % (11.0-16.0); WBCANC 10.8 X10*3/uL; White Blood Count 10.8 X10*3/uL (4.8-10.8)
== END 2024-01-12 12:07 | disposition home or self-care (01) ==
LOC: HO.LAB 12:06
PROVIDERS: Visit Provider Clinical Nurse Specialist Psychiatric/Mental Health, Adult
DX: Z79.899 Other long term (current) drug therapy (principal)
CPT/HCPCS: 36415; 85025

== ENCOUNTER 2024-02-10 15:20 | Outpatient (REF) | payer MEDICARE, MEDICAID, SELFPAY ==
[2024-02-10 15:31] LABS: MANUAL DIFF FLAG NO
[2024-02-10 15:48] LABS: Basophils Percent Auto 0.2 % (0-2); Hematocrit 33.6 % (42.0-52.0); Imm Gran Abs Auto 0.07 X10*3/uL (0.00-0.03); Imm Gran Pct Auto 0.6 % (0.0-0.4); Lymphocytes Absolute Auto 2.7 X10*3/uL (1.2-4.9); Lymphocytes Percent Auto 21.7 % (20-40); Mean Corpuscular HGB Conc 35.7 g/dl (31.0-36.0); Mean Corpuscular Hemoglobin 28.8 pg (27.0-33.0); Mean Corpuscular Volume 80.8 fL (80.0-98.0); Mean Platelet Volume 9.2 fL (9.4-12.4); Monocytes Absolute Auto 0.7 X10*3/uL (0.1-1.2); Monocytes Percent Auto 5.8 % (2-11); Neut%MD 71.7 %; Neutrophils Absolute Auto 8.8 x10*3/uL (2.0-8.3); Neutrophils Percent Auto 71.7 % (45-73); Platelet Count 287 X10*3/uL (160-400); Red Blood Count 4.16 X10*6/uL (4.60-5.80); Red Cell Distribution Width 12.3 % (11.0-16.0); WBCANC 12.3 X10*3/uL; White Blood Count 12.3 X10*3/uL (4.8-10.8)
== END 2024-02-10 15:21 | disposition home or self-care (01) ==
LOC: HO.LABR 15:20
PROVIDERS: PCP Internal Medicine; Visit Provider Clinical Nurse Specialist Psychiatric/Mental Health, Adult
DX: Z79.899 Other long term (current) drug therapy (principal)
CPT/HCPCS: 36415; 85025

== ENCOUNTER 2024-02-24 12:43 | Outpatient (AMB) | payer MEDICARE, MEDICAID, SELFPAY ==
[2024-02-24 12:51] VITALS: BP 122/78; PULSE 122; O2SAT 98; BMI 29.7
--- NOTE | 2024-02-24 12:51 | MHC.PC.OV ---
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 Allergies No Known Allergies [No Known Allergies*] Allergy (Verified 02/24/24 12:52) Medication List - Last Reconciled 02/24/24 by Ethan Issa MD acetaminophen ER (Tylenol 8 Hour) 650 mg PO Q4H atorvastatin 10 mg PO DAILY benztropine 1 mg PO DAILY benztropine 2 mg PO BEDTIME blood pressure monitor (Blood Pressure Kit) As directed blood sugar diagnostic (Userlike Live Chat No Coding strips) test daily clozapine (Clozaril) 400 mg PO BEDTIME clozapine (Clozaril) 100 mg PO BID cyanocobalamin (vitamin B-12) 1,000 mcg PO DAILY docusate sodium (Colace) 100 mg PO BID 30 days fenofibrate 160 mg PO DAILY insulin glargine (Basaglar KwikPen U-100 Insulin) 15 units (0.15 mL) subcut QAM insulin needles (disposable) As directed lancets (BD Ultra Fine Lancets) once per day lancets (Kiind.mey Lancets) test daily lisinopril 5 mg PO DAILY lorazepam (Ativan) 1 mg PO BID PRN magnesium hydroxide (Milk of Magnesia) 30 mL PO BEDTIME metformin 1,000 mg PO BID 90 days pen needle, diabetic (BD Ultra-Fine Mini Pen Needle) As directed injecting Lantus once a day risperidone microspheres ER (Risperdal Consta) 50 mg IM Q2W sennosides (senna) 17.2 mg (2 x 8.6 mg) PO BEDTIME tirzepatide (Mounjaro) 5 mg (0.5 mL) subcut QWEEK Tobacco use date assessed: 02/24/24 Dental Screening Dental Screen Date: 02/24/24 Did you have a dental visit in the last 12 months?: No Did you have a dental problem in the last 6 months where you did not have access to dental care?: No HPI 3M follow up HPI Details 44-year-old obese male with an uncontrolled diabetes mellitus hypercholesterolemia hypertension history of alcohol abuse with schizophrenia. Last seen in October 2023. Review of the notes has been sent to endocrinology January 2024 placed on Mounjaro but has not taken it due to availability issue on Basaglar 15 units at night metformin 1 g twice a day A1c 7.9. Mounjaro 2.5 mg once a week. [facility] Medical History (Updated 11/18/23 @ 13:18 by Ethan Issa MD) Type 2 diabetes mellitus with hyperglycemia Family History Other Lung cancer Social History (Updated 11/18/23 @ 13:21 by Ethan Issa MD) Housing: Other Alcohol intake: current Comment: once a week 1 Patient Tobacco Use Status: Never used Tobacco Years Smoked: smokes pot e-Cigarette/Vaping Use: Never Used Second Hand Smoke Exposure: No Current occupational status: employed Cognitive needs: Yes Hearing needs: No Vision needs: No Questionnaire PHQ-9 Over the last 2 weeks, how often have you been bothered by any of the following problems? 1. Little interest or pleasure in doing things: not at all 2. Feeling down, depressed, or hopeless: not at all 3. Trouble falling or staying asleep, or sleeping too much: not at all 4. Feeling tired or having little energy: not at all 5. Poor appetite or overeating: not at all 6. Feeling bad about yourself - or that you are a failure or have let yourself or your family down: not at all 7. Trouble concentrating on things, such as reading the newspaper or watching television: not at all 8. Moving or speaking so slowly that other people could have noticed. Or the opposite - being so fidgety or restless that you have been moving around a lot more than usual: not at all 9. Thoughts that you would be better off or of hurting yourself in some way: not at all Total score: 0 Depression Screening Interpretation: Negative Depression Screening Done: Yes Source: Developed by Drs. Leonard Smallwood, Alyssa Reyes, Juan Jose Hui and colleagues, with an educational shana from [employer]. Thrive Questionnaire Date Thrive assessed: 02/23/23 AUDIT C Alcohol Use Questionnaire (AUDIT-C) 1. How often do you have a drink containing alcohol?: Never 3. How often do you have six or more drinks on one occasion?: Never Total Score: 0 DENISE-7 AMB Questionnaire DENISE-7 Date DENISE - 7 assessed: 02/24/24 Feeling nervous, anxious, or on edge: 0 = Not at all Not being able to stop or control worryin = Not at all Worrying too much about different things: 0 = Not at all Trouble relaxin = Not at all Being so restless that it is hard to sit still: 0 = Not at all Becoming easily annoyed or irritable: 0 = Not at all Feeling afraid as if something awful might happen: 0 = Not at all Total DENISE-7 score (0-4 normal; 5-9 mild; 10-14 moderate; 15-21 severe): 0 Source: Developed by Drs. Leonard Smallwood, Alyssa Reyes, Juan Jose Hui and colleagues, with an educational shana from [employer]. Physical exam (Primary Care) Vital Signs: Last Vital Signs Pulse 122 H 02/24/24 12:51 BP 122/78 02/24/24 12:51 Pulse Ox 98 02/24/24 12:51 Oxygen Delivery Method Room Air 02/24/24 12:51 BMI result Body Mass Index 29.7 Tobacco/Smoking Status: Tobacco use Status Tobacco use date assessed 02/24/24 02/24/24 12:53 Patient Tobacco Use Status Never used Tobacco 02/24/24 12:53 e-Cigarette/Vaping Use Never Used 02/24/24 12:53 PHQ-9: PHQ-9 Score PHQ-9: Total score 0 02/24/24 13:05 Depression Screening Interpretation: Negative Thrive Assessment: Date of Thrive Assessment Date Thrive assessed 02/23/23 02/24/24 12:53 Const General: alert; No acute distress Eyes Conjunctivae: conjunctivae normal Resp Auscultation: clear to auscultation bilaterally Cardio Rate: regular rate Rhythm: regular rhythm GI Inspection: Yes normal to inspection Extrem General: Yes normal to inspection and No edema Results AMB Hemoglobin A1c AMB Hemoglobin A1c 8.5 % Last Edit by YVONNE Moy on 02/24/24 13:06 Results Reviewed Results Reviewed: Laboratory Last Values Hgb A1c (Clinic) 8.5 % (4.0-6.0) H 02/24/24 10:08 Assessment and Plan Assessment & Plan (1) Type 2 diabetes mellitus with hyperglycemia: Comment: [facility] care Code(s): E11.65 - Type 2 diabetes mellitus with hyperglycemia Plan: Decrease the amount of carbohydrate intake, pasta, bread, rice and potatoes are all sugar and that is aside from all the sweet stuff, remember that fruits are good but they are Sweet also. Hemoglobin A1c goal of less than 7.0 preferably 6.5. Patient is being followed up by Endocrinology placed on Mounjaro 2.5 mg once a week continuing with Basaglar as well as metformin patient needed an extra prescription for the insulin since has been priming the insulin every time. Discussed with the patient that he does not need to prime every time. Eye exam is up-to-date (2) Hypertension: Code(s): I10 - Essential (primary) hypertension Plan: Continue with blood pressure medication. Decrease salt intake and exercise patient on lisinopril 5 mg once a day (3) Anemia: Code(s): D64.9 - Anemia, unspecified Plan: Continuing to monitor blood count is stable (4) Hypercholesterolemia: Code(s): E78.00 - Pure hypercholesterolemia, unspecified Plan: Avoid fried foods, chicken skin, eggs, butter margarine, pastries and meat. Be it pork or beef they have a lot of cholesterol LDL goal of less than 100 and triglyceride of less than 150 presently on atorvastatin 10 mg once a day and fenofibrate 160 mg once a day June 2023 last blood work. (5) Obesity (BMI 30-39.9): Code(s): E66.9 - Obesity, unspecified Plan: Diet and exercise (6) Schizophrenia: Comment: Sidney Salter Code(s): F20.9 - Schizophrenia, unspecified Plan: Continue to follow-up with psychiatry and counseling Orders: Orders AMB Hemoglobin A1c Today E11.65 - Type 2 diabetes mellitus with hyperglycemia Medications: Changed From insulin glargine (Basaglar KwikPen U-100 Insulin) 15 units (0.15 mL) subcut QAM 15 mL 11RF E11.65 - Type 2 diabetes mellitus with hyperglycemia To insulin glargine (Basaglar KwikPen U-100 Insulin) OS DIRECTED 15 units (0.15 mL) subcut QAM 15 mL 11RF E11.65 - Type 2 diabetes mellitus with hyperglycemia Refilled insulin glargine (Basaglar KwikPen U-100 Insulin) OS DIRECTED 15 units (0.15 mL) subcut QAM 15 mL 11RF E11.65 - Type 2 diabetes mellitus with hyperglycemia Coding Level of Care Code Est Pt Level 4 (73913) Diagnoses Type 2 diabetes mellitus with hyperglycemia E11.65 Hypertension I10 Anemia D64.9 Hypercholesterolemia E78.00 Obesity (BMI 30-39.9) E66.9 Schizophrenia F20.9
== END 2024-02-24 13:28 | disposition home or self-care (01) ==
PROVIDERS: PCP Internal Medicine; Visit Provider Internal Medicine
DX: E11.65 Type 2 diabetes mellitus with hyperglycemia (principal); F20.9 Schizophrenia, unspecified; I10 Essential (primary) hypertension; D64.9 Anemia, unspecified; E78.00 Pure hypercholesterolemia, unspecified; E66.9 Obesity, unspecified
CPT/HCPCS: 83036; 99214

== ENCOUNTER 2024-03-09 09:37 | Outpatient (REF) | payer MEDICARE, MEDICAID, SELFPAY ==
[2024-03-09 09:46] LABS: MANUAL DIFF FLAG NO
[2024-03-09 10:32] LABS: Basophils Percent Auto 0.5 % (0-2); Hemoglobin 13.2 g/dl (14.0-18.0); Imm Gran Abs Auto 0.03 X10*3/uL (0.00-0.03); Imm Gran Pct Auto 0.4 % (0.0-0.4); Lymphocytes Absolute Auto 1.9 X10*3/uL (1.2-4.9); Lymphocytes Percent Auto 24.7 % (20-40); Mean Corpuscular HGB Conc 35.7 g/dl (31.0-36.0); Mean Corpuscular Hemoglobin 29.3 pg (27.0-33.0); Mean Corpuscular Volume 82.2 fL (80.0-98.0); Mean Platelet Volume 9.5 fL (9.4-12.4); Monocytes Absolute Auto 0.5 X10*3/uL (0.1-1.2); Monocytes Percent Auto 6.1 % (2-11); Neutrophils Absolute Auto 5.3 x10*3/uL (2.0-8.3); Neutrophils Percent Auto 68.3 % (45-73); Platelet Count 350 X10*3/uL (160-400); Red Cell Distribution Width 12.6 % (11.0-16.0); White Blood Count 7.8 X10*3/uL (4.8-10.8)
== END 2024-03-09 09:38 | disposition home or self-care (01) ==
LOC: HO.LABR 09:37
PROVIDERS: PCP Internal Medicine; Visit Provider Clinical Nurse Specialist Psychiatric/Mental Health, Adult
DX: Z79.899 Other long term (current) drug therapy (principal)
CPT/HCPCS: 36415; 85025

== ENCOUNTER 2024-04-04 13:34 | Outpatient (REF) | payer MEDICARE, MEDICAID, SELFPAY ==
[2024-04-04 13:56] LABS: MANUAL DIFF FLAG NO
[2024-04-04 15:41] LABS: Basophils Absolute Auto 0.1 X10*3/uL (0.0-0.2); Basophils Percent Auto 0.6 % (0-2); Hematocrit 37.6 % (42.0-52.0); Hemoglobin 13.5 g/dl (14.0-18.0); Imm Gran Abs Auto 0.05 X10*3/uL (0.00-0.03); Imm Gran Pct Auto 0.5 % (0.0-0.4); Mean Corpuscular HGB Conc 35.9 g/dl (31.0-36.0); Mean Corpuscular Hemoglobin 29.9 pg (27.0-33.0); Mean Corpuscular Volume 83.2 fL (80.0-98.0); Mean Platelet Volume 10.4 fL (9.4-12.4); Monocytes Absolute Auto 0.6 X10*3/uL (0.1-1.2); Monocytes Percent Auto 5.9 % (2-11); Neutrophils Absolute Auto 6.6 x10*3/uL (2.0-8.3); Platelet Count 341 X10*3/uL (160-400); Red Blood Count 4.52 X10*6/uL (4.60-5.80); Red Cell Distribution Width 12.2 % (11.0-16.0); White Blood Count 10.4 X10*3/uL (4.8-10.8)
== END 2024-04-04 13:35 | disposition home or self-care (01) ==
LOC: HO.LAB 13:34
PROVIDERS: Visit Provider Clinical Nurse Specialist Psychiatric/Mental Health, Adult
DX: Z79.899 Other long term (current) drug therapy (principal)
CPT/HCPCS: 36415; 85025

== ENCOUNTER 2024-05-04 10:20 | Outpatient (REF) | payer MEDICARE, MEDICAID, SELFPAY ==
[2024-05-04 10:29] LABS: MANUAL DIFF FLAG NO
[2024-05-04 11:20] LABS: Basophils Absolute Auto 0.1 X10*3/uL (0.0-0.2); Basophils Percent Auto 0.7 % (0-2); Hematocrit 41.3 % (42.0-52.0); Hemoglobin 14.6 g/dl (14.0-18.0); Imm Gran Abs Auto 0.06 X10*3/uL (0.00-0.03); Imm Gran Pct Auto 0.6 % (0.0-0.4); Lymphocytes Absolute Auto 2.9 X10*3/uL (1.2-4.9); Lymphocytes Percent Auto 27.6 % (20-40); Mean Corpuscular HGB Conc 35.4 g/dl (31.0-36.0); Mean Corpuscular Hemoglobin 28.9 pg (27.0-33.0); Mean Corpuscular Volume 81.6 fL (80.0-98.0); Mean Platelet Volume 9.7 fL (9.4-12.4); Monocytes Absolute Auto 0.7 X10*3/uL (0.1-1.2); Monocytes Percent Auto 6.7 % (2-11); Neutrophils Absolute Auto 6.8 x10*3/uL (2.0-8.3); Neutrophils Percent Auto 64.4 % (45-73); Platelet Count 330 X10*3/uL (160-400); Red Blood Count 5.06 X10*6/uL (4.60-5.80); Red Cell Distribution Width 12.4 % (11.0-16.0); White Blood Count 10.5 X10*3/uL (4.8-10.8)
== END 2024-05-04 10:21 | disposition home or self-care (01) ==
LOC: HO.LAB 10:20
PROVIDERS: PCP Internal Medicine; Visit Provider Clinical Nurse Specialist Psychiatric/Mental Health, Adult
DX: Z79.899 Other long term (current) drug therapy (principal)
CPT/HCPCS: 36415; 85025

== ENCOUNTER 2024-05-31 11:17 | Outpatient (REF) | payer MEDICARE, MEDICAID, SELFPAY ==
[2024-05-31 11:57] LABS: MANUAL DIFF FLAG NO
[2024-05-31 12:16] LABS: Basophils Absolute Auto 0.1 X10*3/uL (0.0-0.2); Basophils Percent Auto 0.5 % (0-2); Hematocrit 36.2 % (42.0-52.0); Hemoglobin 12.7 g/dl (14.0-18.0); Imm Gran Abs Auto 0.07 X10*3/uL (0.00-0.03); Imm Gran Pct Auto 0.7 % (0.0-0.4); Lymphocytes Absolute Auto 2.1 X10*3/uL (1.2-4.9); Lymphocytes Percent Auto 22.3 % (20-40); Mean Corpuscular HGB Conc 35.1 g/dl (31.0-36.0); Mean Corpuscular Hemoglobin 28.8 pg (27.0-33.0); Mean Corpuscular Volume 82.1 fL (80.0-98.0); Mean Platelet Volume 9.9 fL (9.4-12.4); Monocytes Absolute Auto 0.6 X10*3/uL (0.1-1.2); Monocytes Percent Auto 6.6 % (2-11); Neutrophils Absolute Auto 6.7 x10*3/uL (2.0-8.3); Neutrophils Percent Auto 69.9 % (45-73); Platelet Count 260 X10*3/uL (160-400); Red Blood Count 4.41 X10*6/uL (4.60-5.80); Red Cell Distribution Width 11.9 % (11.0-16.0); White Blood Count 9.6 X10*3/uL (4.8-10.8)
== END 2024-05-31 11:18 | disposition home or self-care (01) ==
LOC: HO.LAB 11:17
PROVIDERS: PCP Internal Medicine; Visit Provider Clinical Nurse Specialist Psychiatric/Mental Health, Adult
DX: Z79.899 Other long term (current) drug therapy (principal)
CPT/HCPCS: 36415; 85025

== ENCOUNTER 2024-06-29 10:54 | Outpatient (REF) | payer MEDICARE, MEDICAID, SELFPAY ==
[2024-06-29 11:11] LABS: MANUAL DIFF FLAG NO
[2024-06-29 11:22] LABS: Basophils Absolute Auto 0.1 X10*3/uL (0.0-0.2); Basophils Percent Auto 0.6 % (0-2); Hematocrit 37.5 % (42.0-52.0); Hemoglobin 13.1 g/dl (14.0-18.0); Imm Gran Abs Auto 0.07 X10*3/uL (0.00-0.03); Imm Gran Pct Auto 0.8 % (0.0-0.4); Lymphocytes Absolute Auto 2.7 X10*3/uL (1.2-4.9); Lymphocytes Percent Auto 30.5 % (20-40); Mean Corpuscular HGB Conc 34.9 g/dl (31.0-36.0); Mean Corpuscular Volume 83.1 fL (80.0-98.0); Mean Platelet Volume 9.3 fL (9.4-12.4); Monocytes Absolute Auto 0.5 X10*3/uL (0.1-1.2); Monocytes Percent Auto 5.3 % (2-11); Neutrophils Absolute Auto 5.6 x10*3/uL (2.0-8.3); Neutrophils Percent Auto 62.8 % (45-73); Platelet Count 304 X10*3/uL (160-400); Red Blood Count 4.51 X10*6/uL (4.60-5.80); Red Cell Distribution Width 12.5 % (11.0-16.0); White Blood Count 8.9 X10*3/uL (4.8-10.8)
== END 2024-06-29 10:55 | disposition home or self-care (01) ==
LOC: HO.LAB 10:54
PROVIDERS: PCP Internal Medicine; Visit Provider Psychiatry & Neurology Psychiatry
DX: Z79.899 Other long term (current) drug therapy (principal)
CPT/HCPCS: 36415; 85025

== ENCOUNTER 2024-07-26 11:23 | Outpatient (REF) | payer MEDICARE, MEDICAID, SELFPAY ==
[2024-07-26 11:42] LABS: MANUAL DIFF FLAG NO
[2024-07-26 12:43] LABS: Basophils Absolute Auto 0.1 X10*3/uL (0.0-0.2); Basophils Percent Auto 0.6 % (0-2); Eosinophils Percent Auto 0.1 % (0-4); Hematocrit 36.9 % (42.0-52.0); Imm Gran Abs Auto 0.13 X10*3/uL (0.00-0.03); Imm Gran Pct Auto 1.4 % (0.0-0.4); Lymphocytes Absolute Auto 2.5 X10*3/uL (1.2-4.9); Lymphocytes Percent Auto 26.3 % (20-40); Mean Corpuscular HGB Conc 35.2 g/dl (31.0-36.0); Mean Corpuscular Hemoglobin 29.5 pg (27.0-33.0); Mean Corpuscular Volume 83.7 fL (80.0-98.0); Mean Platelet Volume 9.6 fL (9.4-12.4); Monocytes Absolute Auto 0.5 X10*3/uL (0.1-1.2); Monocytes Percent Auto 5.6 % (2-11); Neutrophils Absolute Auto 6.2 x10*3/uL (2.0-8.3); Platelet Count 344 X10*3/uL (160-400); Red Blood Count 4.41 X10*6/uL (4.60-5.80); Red Cell Distribution Width 12.8 % (11.0-16.0); White Blood Count 9.4 X10*3/uL (4.8-10.8)
== END 2024-07-26 11:24 | disposition home or self-care (01) ==
LOC: HO.LAB 11:23
PROVIDERS: PCP Internal Medicine; Visit Provider Clinical Nurse Specialist Psychiatric/Mental Health, Adult
DX: Z79.899 Other long term (current) drug therapy (principal)
CPT/HCPCS: 36415; 85025

== ENCOUNTER 2024-08-24 11:41 | Outpatient (REF) | payer MEDICARE, MEDICAID, SELFPAY ==
[2024-08-24 11:52] LABS: MANUAL DIFF FLAG NO
[2024-08-24 12:22] LABS: Basophils Absolute Auto 0.1 X10*3/uL (0.0-0.2); Basophils Percent Auto 0.8 % (0-2); Eosinophils Percent Auto 0.2 % (0-4); Hematocrit 36.8 % (42.0-52.0); Hemoglobin 12.8 g/dl (14.0-18.0); Imm Gran Abs Auto 0.07 X10*3/uL (0.00-0.03); Imm Gran Pct Auto 0.7 % (0.0-0.4); Lymphocytes Absolute Auto 2.8 X10*3/uL (1.2-4.9); Lymphocytes Percent Auto 27.9 % (20-40); Mean Corpuscular HGB Conc 34.8 g/dl (31.0-36.0); Mean Corpuscular Hemoglobin 29.1 pg (27.0-33.0); Mean Corpuscular Volume 83.6 fL (80.0-98.0); Mean Platelet Volume 9.1 fL (9.4-12.4); Monocytes Absolute Auto 0.5 X10*3/uL (0.1-1.2); Monocytes Percent Auto 4.9 % (2-11); Neutrophils Absolute Auto 6.6 x10*3/uL (2.0-8.3); Neutrophils Percent Auto 65.5 % (45-73); Platelet Count 339 X10*3/uL (160-400); White Blood Count 10.1 X10*3/uL (4.8-10.8)
== END 2024-08-24 11:42 | disposition home or self-care (01) ==
LOC: HO.LAB 11:41
PROVIDERS: PCP Internal Medicine; Visit Provider Psychiatry & Neurology Psychiatry
DX: Z79.899 Other long term (current) drug therapy (principal)
CPT/HCPCS: 36415; 85025

== ENCOUNTER 2024-09-20 13:02 | Outpatient (REF) | payer MEDICARE, MEDICAID, SELFPAY ==
[2024-09-20 13:19] LABS: MANUAL DIFF FLAG NO
[2024-09-20 13:40] LABS: Basophils Percent Auto 0.5 % (0-2); Eosinophils Percent Auto 0.1 % (0-4); Hematocrit 36.9 % (42.0-52.0); Imm Gran Abs Auto 0.03 X10*3/uL (0.00-0.03); Imm Gran Pct Auto 0.4 % (0.0-0.4); Lymphocytes Absolute Auto 2.7 X10*3/uL (1.2-4.9); Lymphocytes Percent Auto 32.8 % (20-40); Mean Corpuscular HGB Conc 35.2 g/dl (31.0-36.0); Mean Corpuscular Volume 82.2 fL (80.0-98.0); Mean Platelet Volume 9.3 fL (9.4-12.4); Monocytes Absolute Auto 0.5 X10*3/uL (0.1-1.2); Monocytes Percent Auto 6.3 % (2-11); Neutrophils Absolute Auto 4.9 x10*3/uL (2.0-8.3); Neutrophils Percent Auto 59.9 % (45-73); Platelet Count 338 X10*3/uL (160-400); Red Blood Count 4.49 X10*6/uL (4.60-5.80); Red Cell Distribution Width 12.4 % (11.0-16.0); White Blood Count 8.2 X10*3/uL (4.8-10.8)
[2024-09-24 05:24] LABS: Clozapine (Clozaril) 424 mcg/L; Norclozapine 355 mcg/L (25-400)
== END 2024-09-20 13:03 | disposition home or self-care (01) ==
LOC: HO.LABR 13:02
PROVIDERS: PCP Internal Medicine; Visit Provider Psychiatry & Neurology Psychiatry
DX: Z79.899 Other long term (current) drug therapy (principal)
CPT/HCPCS: 36415; 80159; 85025

== ENCOUNTER 2024-10-19 15:16 | Outpatient (AMB) | payer MEDICARE, MEDICAID, SELFPAY ==
[2024-10-19 15:17] VITALS: BP 122/84; PULSE 102; O2SAT 98; BMI 28.6
--- NOTE | 2024-10-19 15:17 | A.OFFPC_ITS ---
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 Accompanied by: Self / Same As Patient Allergies No Known Allergies [No Known Allergies*] Allergy (Verified 10/19/24 15:17) Tobacco use date assessed: 10/19/24 Dental Screening Dental Screen Date: 10/19/24 Did you have a dental visit in the last 12 months?: Yes Did you have a dental problem in the last 6 months where you did not have access to dental care?: No Was dental information given to patient?: Patient has dentist HPI 3 month follow up /diabetes HPI Details 44-year-old overweight male(noted 8 lb w eight loss) with schizophrenia, with diabetes mellitus hypertension hypercholesterolemia coming in for follow- up. Last seen in January 2024. Patient's last colonoscopy was done in 2014. Review of the notes has seen endocrinology in July 2024 Sha Jennings do not have any blood work [facility] Medical History (Updated 10/19/24 @ 15:35 by Ethan Issa MD) Type 2 diabetes mellitus with hyperglycemia Family History Other Lung cancer Social History Housing: Other Alcohol intake: current Comment: once a week 1 Patient Tobacco Use Status: Never used Tobacco Years Smoked: smokes pot e-Cigarette/Vaping Use: Never Used Second Hand Smoke Exposure: No Current occupational status: employed Cognitive needs: Yes Hearing needs: No Vision needs: No Questionnaire PHQ-9 Over the last 2 weeks, how often have you been bothered by any of the following problems? 1. Little interest or pleasure in doing things: not at all 2. Feeling down, depressed, or hopeless: not at all 3. Trouble falling or staying asleep, or sleeping too much: not at all 4. Feeling tired or having little energy: not at all 5. Poor appetite or overeating: not at all 6. Feeling bad about yourself - or that you are a failure or have let yourself or your family down: not at all 7. Trouble concentrating on things, such as reading the newspaper or watching television: not at all 8. Moving or speaking so slowly that other people could have noticed. Or the opposite - being so fidgety or restless that you have been moving around a lot more than usual: not at all 9. Thoughts that you would be better off or of hurting yourself in some way: not at all Total score: 0 Depression Screening Interpretation: Negative Depression Screening Done: Yes Source: Developed by Drs. Leonard Smallwood, Alyssa Reyes, Juan Jose Hui and colleagues, with an educational shana from [employer]. Thrive Questionnaire Date Thrive assessed: 10/19/24 I am a: Patient What is your living situation today?: I have a steady place to live Within the past 12 months, did the food you bought not last and you didn't have the money to get more?: Never true Within the past 12 months, did you worry whether your food would run out before you got money to buy more?: Never true Do you have trouble paying for medicines?: No Do you have trouble getting transportation to medical appointments?: No Do you have trouble paying your heating and electricity bill?: No Do you have trouble taking care of your child, family member or friend?: No Do you have trouble with day-to-day activities such as bathing, preparing meals, shopping, managing finances, etc.?: No Are you currently unemployed and looking for a job?: No Are you interested in more education?: No Please select the resources that you would like help with: None Currently or been in a relationship where the following occur: No concerns reported THRIVE Score: 0 AUDIT C Alcohol Use Questionnaire (AUDIT-C) 1. How often do you have a drink containing alcohol?: Never 3. How often do you have six or more drinks on one occasion?: Never Total Score: 0 DENISE-7 AMB Questionnaire DENISE-7 Date DENISE - 7 assessed: 10/19/24 Feeling nervous, anxious, or on edge: 0 = Not at all Not being able to stop or control worryin = Not at all Worrying too much about different things: 0 = Not at all Trouble relaxin = Not at all Being so restless that it is hard to sit still: 0 = Not at all Becoming easily annoyed or irritable: 0 = Not at all Feeling afraid as if something awful might happen: 0 = Not at all Total DENISE-7 score (0-4 normal; 5-9 mild; 10-14 moderate; 15-21 severe): 0 Source: Developed by Drs. Leonard Smallwood, Alyssa Reyes, Juan Jose Hui and colleagues, with an educational shana from [employer]. Physical exam (Primary Care) Vital Signs: Last Vital Signs Pulse 102 H 10/19/24 15:17 BP 122/84 10/19/24 15:17 Pulse Ox 98 10/19/24 15:17 Oxygen Delivery Method Room Air 10/19/24 15:17 BMI result Body Mass Index 28.6 Tobacco/Smoking Status: Tobacco use Status Tobacco use date assessed 10/19/24 10/19/24 15:25 Patient Tobacco Use Status Never used Tobacco 10/19/24 15:25 e-Cigarette/Vaping Use Never Used 10/19/24 15:25 PHQ-9: PHQ-9 Score PHQ-9: Total score 0 10/19/24 15:25 Depression Screening Interpretation: Negative Thrive Assessment: Date of Thrive Assessment Date Thrive assessed 10/19/24 10/19/24 15:25 Currently or been in a relationship where the following occur: No concerns reported Const General: alert; No acute distress Eyes Conjunctivae: conjunctivae normal Resp Auscultation: clear to auscultation bilaterally Cardio Rate: regular rate Rhythm: regular rhythm GI Inspection: Yes normal to inspection Extrem General: Yes normal to inspection and No edema Coding Level of Care Code Est Pt Level 4 (46077) Complex EM visit Add On G2211 Diagnoses Type 2 diabetes mellitus with hyperglycemia, without long-term current use of insulin E11.65 Diabetes mellitus correction insulin use: without correction use Primary hypertension I10 Hypertension type: primary hypertension Hypercholesterolemia E78.00 Obesity (BMI 30-39.9) E66.9 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 Hemoglobin A1c goal of less than 6.5. Patient sees endocrinology patient is on Mounjaro hence the weight loss, metformin a 1000 mg twice a day patient on Basaglar at 15 units once a day (2) Hypertension: Code(s): I10 - Essential (primary) hypertension Category: Medical Qualifiers: Hypertension type: primary hypertension Qualified Code(s): I10 - Essential (primary) hypertension Plan: Continue with blood pressure medication. Decrease salt intake and exercise takes lisinopril 5 mg once a day (3) Hypercholesterolemia: Code(s): E78.00 - Pure hypercholesterolemia, unspecified Category: Medical Plan: Avoid fried foods, chicken skin, eggs, butter margarine, pastries and meat. Be it pork or beef they have a lot of cholesterol LDL goal of less than 100 and triglyceride of less than 150 on fenofibrate 160 mg once a day and atorvastatin 10 mg once a day (4) Obesity (BMI 30-39.9): Code(s): E66.9 - Obesity, unspecified Category: Medical Plan: noted weight loss, continue with Mounjaro (5) Schizophrenia: Comment: Sidney Salter Code(s): F20.9 - Schizophrenia, unspecified Category: Medical Qualifiers: Schizophrenia type: disorganized schizophrenia Qualified Code(s): F20.1 - Disorganized schizophrenia Plan: continue to follow-up with Psychiatry and counseling Orders: Orders Complete Blood Count Auto Diff Today E11.65 - Type 2 diabetes mellitus with hyperglycemia Thyroid Stimulating Hormone Today E11.65 - Type 2 diabetes mellitus with hyperglycemia Microalbumin, Random (w Creat) Today E11.65 - Type 2 diabetes mellitus with hyperglycemia Vitamin B12 and Folate Today E11.65 - Type 2 diabetes mellitus with hyperglycemia Comprehensive Met. Panel Today E11.65 - Type 2 diabetes mellitus with hyperglycemia Free T4 (Free Thyroxine) Today E11.65 - Type 2 diabetes mellitus with hyperglycemia Creatinine Urine Today E11.65 - Type 2 diabetes mellitus with hyperglycemia Lipid Panel Today E11.65 - Type 2 diabetes mellitus with hyperglycemia, E78.00 - Pure hypercholesterolemia, unspecified Hemoglobin A1c Today E11.65 - Type 2 diabetes mellitus with hyperglycemia
== END 2024-10-19 15:50 | disposition home or self-care (01) ==
PROVIDERS: PCP Internal Medicine; Visit Provider Internal Medicine
DX: E11.65 Type 2 diabetes mellitus with hyperglycemia (principal); F20.1 Disorganized schizophrenia; Z68.28 Body mass index [BMI] 28.0-28.9, adult; E66.9 Obesity, unspecified; I10 Essential (primary) hypertension; E78.00 Pure hypercholesterolemia, unspecified

== ENCOUNTER → 2024-10-19 15:16 | Outpatient (BNVA) | payer MEDICARE, MEDICAID, SELFPAY | PROVIDERS: PCP Internal Medicine; Visit Provider Internal Medicine | DX: E11.65 Type 2 diabetes mellitus with hyperglycemia (principal); I10 Essential (primary) hypertension; E78.00 Pure hypercholesterolemia, unspecified; E66.9 Obesity, unspecified; F20.1 Disorganized schizophrenia | CPT/HCPCS: 96127; 99212 ==

== ENCOUNTER 2024-10-24 09:16 | Outpatient (REF) | payer MEDICARE, MEDICAID, SELFPAY ==
[2024-10-24 09:36] LABS: MANUAL DIFF FLAG NO
[2024-10-24 09:51] LABS: Basophils Absolute Auto 0.1 X10*3/uL (0.0-0.2); Basophils Percent Auto 0.6 % (0-2); Eosinophils Percent Auto 0.2 % (0-4); Hematocrit 36.2 % (42.0-52.0); Hemoglobin 12.9 g/dl (14.0-18.0); Imm Gran Abs Auto 0.06 X10*3/uL (0.00-0.03); Imm Gran Pct Auto 0.7 % (0.0-0.4); Lymphocytes Absolute Auto 2.2 X10*3/uL (1.2-4.9); Lymphocytes Percent Auto 27.3 % (20-40); Mean Corpuscular HGB Conc 35.6 g/dl (31.0-36.0); Mean Corpuscular Volume 81.3 fL (80.0-98.0); Mean Platelet Volume 9.4 fL (9.4-12.4); Monocytes Absolute Auto 0.4 X10*3/uL (0.1-1.2); Monocytes Percent Auto 4.9 % (2-11); Neutrophils Absolute Auto 5.4 x10*3/uL (2.0-8.3); Neutrophils Percent Auto 66.3 % (45-73); Platelet Count 362 X10*3/uL (160-400); Red Blood Count 4.45 X10*6/uL (4.60-5.80); Red Cell Distribution Width 12.2 % (11.0-16.0); White Blood Count 8.1 X10*3/uL (4.8-10.8)
[2024-10-24 10:06] LABS: Estimated Average Glucose 289 mg/dL; Hemoglobin A1C 342.7778 umol/L; Hemoglobin A1c % 11.7 % (<6.0); Total Hemoglobin (HGBA1C) 3290.9348 umol/L
[2024-10-24 10:56] LABS: Alanine Aminotransferase 15 U/L (0-40); Albumin Level 4.3 g/dL (3.5-5.0); Alkaline Phosphatase 70 U/L (39-117); Anion Gap 14 (12-20); Aspartate Amino Transferase 13 U/L (5-37); Bilirubin Total 0.4 mg/dL (0.0-1.0); Blood Urea Nitrogen 10 mg/dL (9-16); Carbon Dioxide 22 mmol/L (22-29); Chloride 102 mmol/L (96-108); Cholesterol 169 mg/dL (<200); Estimated Glomerular Filt Rate > 60; Glucose Random 277 mg/dL (60-115); HDL Cholesterol 38 mg/dL (>40); LDL Cholesterol Calculated 75 mg/dL (<100); Potassium 3.6 mmol/L (3.3-5.1); Sodium 134 mmol/L (135-145); Thyroid Stimulating Hormone 2.41 uIU/mL (0.32-4.0); Total Protein 6.6 g/dL (6.5-8.0); Triglycerides 283 mg/dL (<150)
[2024-10-24 11:06] LABS: Folate 13.8 ng/mL (> or = 4.0); Vitamin B12 572 pg/mL (200-900)
[2024-10-24 12:39] LABS: Creatinine Urine 133.01 mg/dL; Microalbum/Creatinine Ratio Ur 4.5 ug/mg cr (<30)
== END 2024-10-24 09:17 | disposition home or self-care (01) ==
LOC: HO.LAB 09:16
PROVIDERS: PCP Internal Medicine; Visit Provider Internal Medicine
DX: E11.65 Type 2 diabetes mellitus with hyperglycemia (principal); E78.00 Pure hypercholesterolemia, unspecified
CPT/HCPCS: 36415; 80053; 80061; 82043; 82570; 82607; 82746; 83036; 84439; 84443; 85025

== ENCOUNTER 2024-11-23 12:12 | Outpatient (AMB) | payer MEDICARE, MEDICAID, SELFPAY ==
--- OUTSIDE RECORDS SUMMARY | 2024-11-23 12:14 | XMS_ITS | Clinical Summary ---
Author Organization Unknown Care Team Providers Care Pet Care Associate Name Role Phone LUCINA RAMAN, NENA Unavailable Unavailable XIAO RN, LUCY Unavailable Unavailable LONG RN, ZAHIRA Unavailable Unavailable MEGAN RN, DANAE Unavailable Unavailable Payers Payer Name Policy Type Policy Number Effective Date Expira tion Date [place] [id number] [place] - [id number] ON DEMAND MEDICARE - [facility] BILLING - ABN [id number] Problems Condition Name Condition Details Condition Category Status Onset Date Resolution Date Last Treatment Date Treating Clinician Comments SCHIZOPHRENI A, UNSPECIFIED Active 01-19 00:00: 00 TYPE 2 DIABETES MELLITUS WITH OTHER SPECIFIED COMPLICATION Active 02-23 00:00: 00 Allergies, Adverse Reactions, Alerts Allergy Name Allergy Type Status Severity Reaction(s) Onset Date Inactive Date Treating Clinician Comments NKA Propensity to adverse reactions Active 2021-01 13:50:4 9 Medications Ordered Medication Name Filled Medication Name Start Date Stop Date Current Medication? Ordering Clinician Indication Dosage Frequency Signature (SIG) Comments Components Risperdal Consta 50 mg/2 mL intramuscul ar susp,extend ed release 01-15 00:00: 00 Yes [id number] 50 mg EVERY OTHER WEEK 50 mg EVERY OTHER WEEK (route: intramuscu lar) Med Classific ation: Central Nervous System Agents benztropine 1 mg tablet 01-23 00:00: 00 Yes [id number] Per instruc tions EVERY DAILY AT BEDTIME Per instructio ns EVERY DAILY AT BEDTIME (route: oral) Med Classific ation: Central Nervous System Agents Januvia 100 mg tablet 02-12 00:00: 00 Yes [id number] 100 mg EVERY AM 100 mg EVERY AM (route: oral) Med Classific ation: Endocrine metformin 500 mg tablet 01-23 00:00: 00 Yes [id number] Per instruc tions TWICE DAILY Per instructio ns TWICE DAILY (route: oral) Med Classific ation: Endocrine fenofibrate nanocrystal lized 145 mg tablet 01-23 00:00: 00 Yes [id number] Per instruc tions EVERY DAY Per instructio ns EVERY DAY (route: oral) Med Classific ation: Cardiovas cular Therapy Agents senna 8.6 mg tablet 01-23 00:00: 00 Yes [id number] Per instruc tions DAILY AT BEDTIME Per instructio ns DAILY AT BEDTIME (route: oral) Med Classific ation: Gastroint estinal Therapy Agents DOK 100 mg capsule 01-23 00:00: 00 Yes [id number] Per instruc tions TWICE DAILY Per instructio ns TWICE DAILY (route: oral) Med Classific ation: Gastroint estinal Therapy Agents lorazepam 1 mg tablet 01-23 00:00: 00 Yes [id number] Per instruc tions TWICE DAILY Per instructio ns TWICE DAILY (route: oral) Med Classific ation: Central Nervous System Agents clozapine 200 mg tablet 01-23 00:00: 00 Yes [id number] Per instruc tions DAILY AT BEDTIME Per instructio ns DAILY AT BEDTIME (route: oral) Med Classific ation: Central Nervous System Agents clozapine 100 mg tablet 01-23 00:00: 00 Yes [id number] Per instruc tions TWICE DAILY IN THE MORNING AND AT BEDTIME Per instructio ns TWICE DAILY IN THE MORNING AND AT BEDTIME (route: oral) Med Classific ation: Central Nervous System Agents Arthritis Pain Relief (acetaminop hen) ER 650 mg tablet,exte nd release 01-23 00:00: 00 Yes [id number] FOR PAIN Per instruc tions EVERY FOUR HOURS NEEDED Per instructio ns EVERY FOUR HOURS NEEDED (route: oral) Med Classific ation: Analgesic , Anti-infl ammatory or Antipyret ic glimepiride 2 mg tablet 01-23 00:00: 00 Yes [id number] Per instruc tions EVERY DAY Per instructio ns EVERY DAY (route: oral) Med Classific ation: Endocrine Basaglar KwikPen U-100 Insulin 100 unit/mL (3 mL) subcutaneou s 01-15 00:00: 00 Yes [id number] 15 unit EVERY AM 15 unit EVERY AM (route: subcutaneo us) Med Classific ation: Endocrine Mounjaro 2.5 mg/0.5 mL subcutaneou s pen injector 16 00:00: 00 Yes [id number] 2.5 mg WEEKLY 2.5 mg WEEKLY (route: subcutaneo us) Med Classific ation: Endocrine Immunizations Ordered Immunization Name Filled Immunization Name Date Status Comments Refusal Reason COVID-19, COVID-19 2021-01-29 00:00:00 Vital Signs Vital Name Observation Time Observation Value Commen ts Temperature 2024-06-18 22:05:00.000 97.6 [degF] Temperature 2024-06-02 07:08:00.000 97.8 [degF] Temperature 2024-06-01 06:36:00.000 97.5 [degF] Temperature 2024-05-31 06:11:00.000 97.6 [degF] Temperature 2024-05-30 10:09:00.000 97.5 [degF] Pulse 2024-06-18 22:06:00.000 88 /min Respirations 2024-06-18 22:06:00.000 20 /min Plan of Treatment Planned Activity Planned Date Details Comments Future Scheduled Test SKILLED NU RSE TO EVALUATE PATIENT, IDENTIFY PRIMARY AND CO-MORBID CONDITIONS CODED PER CODING GUIDELINES, AND DEVELOP PATIENT SPECIFIC PLAN OF CARE THAT INCLUDES PATIENT GOAL FOR HOME HEALTH. [code = SKILLED NURSE TO EVALUATE PATIENT, IDENTIFY PRIMARY AND CO-MORBID CONDITIONS CODED PER CODING GUIDELINES, AND DEVELOP PATIENT SPECIFIC PLAN OF CARE THAT INCLUDES PATIENT GOAL FOR HOME HEALTH.] Future Scheduled Test SKILLED NU RSE TO PERFORM HOME SAFETY AND FALL ASSESSMENT AND PROVIDE INSTRUCTION TO IMPLEMENT HOME SAFETY AND FALL PREVENTION STRATEGIES. [code = SKILLED NURSE TO PERFORM HOME SAFETY AND FALL ASSESSMENT AND PROVIDE INSTRUCTION TO IMPLEMENT HOME SAFETY AND FALL PREVENTION STRATEGIES.] Future Scheduled Test SKILLED NU RSE TO PROVIDE INSTRUCTION TO PATIENT/CAREGIVER RELATED TO DISCHARGE PLANNING. [code = SKILLED NURSE TO PROVIDE INSTRUCTION TO PATIENT/CAREGIVER RELATED TO DISCHARGE PLANNING.] Future Scheduled Test SKILLED NU RSE TO O/A OF PATIENTS MENTAL/BEHAVIORAL STATUS, ASSESS VITAL SIGNS FOUR TIMES A WEEK [code = SKILLED NURSE TO O/A OF PATIENTS MENTAL/BEHAVIORAL STATUS, ASSESS VITAL SIGNS FOUR TIMES A WEEK ] Future Scheduled Test CLINICAL S UMMARY (SOC/RECERT, 10 DAY, 60 DAY): THE PATIENT IS RECEIVING HOMECARE DUE TO NEW ONSET/EXACERBATION OF: NO RECENT HOSPITALIZATION/INPATIENT ADMISSION RELATED TO: NO NEW OR CHANGED MEDICATIONS PERTINENT TO THE PLAN OF CARE: YES PATIENT LIVING SITUATION/CAREGIVER STATUS: ALONE SUMMARIZE SKILLED NEED: MEDICATION MANAGEMENT, VITAL SIGN ASSESSMENT, MENTAL STATUS ASSESSMENT AND DIAGNOSIS MANAGEMENT [code = CLINICAL SUMMARY (SOC/RECERT, 10 DAY, 60 DAY): THE PATIENT IS RECEIVING HOMECARE DUE TO NEW ONSET/EXACERBATION OF: NO RECENT HOSPITALIZATION/INPATIENT ADMISSION RELATED TO: NO NEW OR CHANGED MEDICATIONS PERTINENT TO THE PLAN OF CARE: YES PATIENT LIVING SITUATION/CAREGIVER STATUS: ALONE SUMMARIZE SKILLED NEED: MEDICATION MANAGEMENT, VITAL SIGN ASSESSMENT, MENTAL STATUS ASSESSMENT AND DIAGNOSIS MANAGEMENT ] Future Scheduled Test SKILLED NU RSE WILL MAINTAIN SITUATIONAL AWARENESS FOR SAFETY AND WILL NOTIFY CLINICAL RACING DRIVER AND PHYSICIAN/PROVIDER WITH ANY CHANGE IN CONDITION. [code = SKILLED NURSE WILL MAINTAIN SITUATIONAL AWARENESS FOR SAFETY AND WILL NOTIFY CLINICAL RACING DRIVER AND PHYSICIAN/PROVIDER WITH ANY CHANGE IN CONDITION.] Future Scheduled Test SKILLED NU RSE TO REVIEW PATIENT MEDICATIONS. INSTRUCT PATIENT/CAREGIVER ON MONITORING OF EFFECTIVENESS, ADVERSE DRUG REACTIONS, SIDE EFFECTS OF ALL MEDICATIONS (PRESCRIPTION/-OTC), AND HOW AND WHEN TO REPORT PROBLEMS. [code = SKILLED NURSE TO REVIEW PATIENT MEDICATIONS. INSTRUCT PATIENT/CAREGIVER ON MONITORING OF EFFECTIVENESS, ADVERSE DRUG REACTIONS, SIDE EFFECTS OF ALL MEDICATIONS (PRESCRIPTION/-OTC), AND HOW AND WHEN TO REPORT PROBLEMS.] Future Scheduled Test SKILLED NU RSE TO ADMINISTER MEDICATIONS FOUR TIMES A WEEK AND PRE-POUR MEDICATIONS TILL NEXT HALFWAY VISIT PER MEDICATION LIST. [code = SKILLED NURSE TO ADMINISTER MEDICATIONS FOUR TIMES A WEEK AND PRE-POUR MEDICATIONS TILL NEXT HALFWAY VISIT PER MEDICATION LIST.] Future Scheduled Test SKILLED NU RSE FOR MEDICATION ADMINISTRATION PER MEDICATION LIST TO BE PERFORMED FOUR TIMES A WEEK [code = SKILLED NURSE FOR MEDICATION ADMINISTRATION PER MEDICATION LIST TO BE PERFORMED FOUR TIMES A WEEK ] Future Scheduled Test PATIENT MA Y HAVE ONE SET OF EMERGENCY MEDICATION NOT TO BE PRE-POURED ANY SOONER THAN 24 HOURS BEFORE SEVERE INCLEMENT WEATHER AND FOLLOWING SKILLED NURSE EVALUATION OF PATIENT SAFETY. [code = PATIENT MAY HAVE ONE SET OF EMERGENCY MEDICATION NOT TO BE PRE-POURED ANY SOONER THAN 24 HOURS BEFORE SEVERE INCLEMENT WEATHER AND FOLLOWING SKILLED NURSE EVALUATION OF PATIENT SAFETY.] Future Scheduled Test SKILLED NU RSE FOR O/A OF ALTERED THOUGHT PROCESS AND/OR DISRUPTION IN COGNITIVE OPERATIONS AND ACTIVITIES [code = SKILLED NURSE FOR O/A OF ALTERED THOUGHT PROCESS AND/OR DISRUPTION IN COGNITIVE OPERATIONS AND ACTIVITIES ] Future Scheduled Test SKILLED NU RSE TO ASSESS PATIENTS PSYCHOSOCIAL STATUS TO IDENTIFY POTENTIAL ISSUES THAT MAY COMPLICATE THE PROVISION OF THE PLAN OF CARE INCLUDING THE PATIENTS ABILITY TO ACCESS COMMUNITY RESOURCES AND PSYCHOSOCIAL SUPPORT SERVICES. [code = SKILLED NURSE TO ASSESS PATIENTS PSYCHOSOCIAL STATUS TO IDENTIFY POTENTIAL ISSUES THAT MAY COMPLICATE THE PROVISION OF THE PLAN OF CARE INCLUDING THE PATIENTS ABILITY TO ACCESS COMMUNITY RESOURCES AND PSYCHOSOCIAL SUPPORT SERVICES.] Future Scheduled Test SKILLED NU RSE FOR O/A OF CLIENT'S SOCIAL ISOLATION AND PROVIDE ASSISTANCE TO CLIENT IN DEVELOPMENT OF PLANNED ACTIVITIES [code = SKILLED NURSE FOR O/A OF CLIENT'S SOCIAL ISOLATION AND PROVIDE ASSISTANCE TO CLIENT IN DEVELOPMENT OF PLANNED ACTIVITIES] Future Scheduled Test MEDICATION S WILL BE HELD AND STORED IN LOCKBOX [code = MEDICATIONS WILL BE HELD AND STORED IN LOCKBOX] Goal 2022-04-07 Patient Goal - A DJUST TO NEW APARTMENT LIFE WITH ONE CHD HOUSEMATE Goal 2021-04-10 Patient Goal - I WANT TO GET MY BICYCLE TO RIDE IN THE CEMENTARY. TOO MANY CARS AROUND HERE. Goal 2021-06-11 Patient Goal - I WANT TO GET MY BICYCLE TO RIDE IN THE CEMENTARY. TOO MANY CARS AROUND HERE. Goal 2021-08-06 Patient Goal - I WANT TO GET MY BICYCLE TO RIDE IN THE CEMENTARY. TOO MANY CARS AROUND HERE. Goal 2021-10-08 Patient Goal - I WANT TO GET MY BICYCLE TO RIDE IN THE CEMENTARY. TOO MANY CARS AROUND HERE. Goal 2021-12-04 Patient Goal - I WANT TO GET MY BICYCLE TO RIDE IN THE CEMENTARY. TOO MANY CARS AROUND HERE. Goal 2022-02-05 Patient Goal - I WANT TO GET MY BICYCLE TO RIDE IN THE CEMENTARY. TOO MANY CARS AROUND HERE. Goal 2022-06-04 Patient Goal - A DJUST TO NEW APARTMENT LIFE WITH ONE CHD HOUSEMATE Goal 2022-08-04 Patient Goal - A DJUST TO NEW APARTMENT LIFE WITH ONE CHD HOUSEMATE Goal 2022-10-01 Patient Goal - A DJUST TO NEW APARTMENT LIFE WITH ONE CHD HOUSEMATE Goal 2022-12-03 Patient Goal - A DJUST TO NEW APARTMENT LIFE WITH ONE CHD HOUSEMATE Goal 2023-01-29 Patient Goal - A DJUST TO NEW APARTMENT LIFE WITH ONE CHD HOUSEMATE Goal 2023-04-01 Patient Goal - A DJUST TO NEW APARTMENT LIFE WITH ONE CHD HOUSEMATE Goal 2023-05-28 Patient Goal - A DJUST TO NEW APARTMENT LIFE WITH ONE CHD HOUSEMATE Goal 2023-07-27 Patient Goal - A DJUST TO NEW APARTMENT LIFE WITH ONE CHD HOUSEMATE Goal 2023-09-28 Patient Goal - A DJUST TO NEW APARTMENT LIFE WITH ONE CHD HOUSEMATE Goal 2023-11-24 Patient Goal - A DJUST TO NEW APARTMENT LIFE WITH ONE CHD HOUSEMATE Goal 2024-01-25 Patient Goal - A DJUST TO NEW APARTMENT LIFE WITH ONE CHD HOUSEMATE Goal 2024-03-23 Patient Goal - A DJUST TO NEW APARTMENT LIFE WITH ONE CHD HOUSEMATE Goal 2024-05-23 Patient Goal - TAKING MY MED S Goal 2024-06-07 Patient Goal - TAKING MY MED S Goal Provider Goal - A PLAN OF CARE WILL BE ESTABLISHED THAT MEETS PATIENT'S HALFWAY NEEDS AND INCLUDES PATIENT GOAL FOR HOME HEALTH. Goal Provider Goal - PATIENT/CAREGIVER WILL VERBALIZE/DEMONSTRATE EFFECTIVE HOME SAFETY AND FALL PREVENTION STRATEGIES THROUGHOUT CERTIFICATION PERIOD. Goal Provider Goal - PATIENT/CAREGIVER WILL VERBALIZE UNDERSTANDING OF DISCHARGE PLANNING INSTRUCTIONS BY DATE OF DISCHARGE. Goal Provider Goal - ALTERED MENTAL/BEHAVIORAL STATUS WILL BE IDENTIFIED PROMPTLY AND INTERVENTION INITIATED QUICKLY TO MINIMIZE ASSOCIATED RISKS THROUGHOUT CERTIFICATION PERIOD. Goal Provider Goal - Goal Provider Goal - PATIENT WILL REMAIN SAFE IN THE COMMUNITY AND WILL BE FREE OF DANGER TO SELF AND OTHERS THROUGHOUT THE CERTIFICATION PERIOD. Goal Provider Goal - PATIENT/CAREGIVER WILL VERBALIZE UNDERSTANDING OF EDUCATION PROVIDED ON MEDICATIONS BY THE END OF THE CERTIFICATION PERIOD. Goal Provider Goal - PATIENT WILL COMPLY WITH MEDICATION WHEN SKILLED NURSE ADMINISTERS AND PRE-POURS MEDICATION THROUGHOUT CERTIFICATION PERIOD. Goal Provider Goal - PATIENT WILL COMPLY WITH MEDICATION WHEN NURSE ADMINISTERS THROUGHOUT CERTIFICATION PERIOD. Goal Provider Goal - MEDICATION WILL BE AVAILABLE DURING INCLEMENT WEATHER OR EMERGENT EVENT THROUGHOUT CERTIFICATION PERIOD. Goal Provider Goal - PATIENT WILL BE ABLE TO PERFORM DAILY FUNCTIONS AND HAVE OPTIMAL IMPROVEMENT IN THOUGHT PROCESS THROUGHOUT CERTIFICATION PERIOD. Goal Provider Goal - PSYCHOSOCIAL NEEDS WILL BE IDENTIFIED AND PLAN IMPLEMENTED TO MINIMIZE RISK THROUGHOUT CERTIFICATION PERIOD. Goal Provider Goal - PATIENT WILL DEMONSTRATE AN INCREASED INTEREST IN SOCIALIZATION AND ACTIVITIES BY THE END OF THE CERTIFICATION PERIOD. Goal Provider Goal - MEDICATION WILL BE STORED IN LOCKBOX FOR SAFETY. Reason for Visit INDEPENDENT IN THE HOME Encounters Start Date/Time End Date/Time Encounter Type Admission Type Attending [facility] Care Department Encounter ID Discharge Date Discharge Status Discharge Condition Discharge Reason Percent Goals Met 2021-02-12 00:00:00 2024-06-07 00:00:00 Outpatient RECERTIFIC ZAHIRA PISANO [facility] [id number] 2024-06-07 00:00:00 DISCHARGED /TRANSFERR ED TO A [facility] OR [facility] INDEPENDEN T IN THE HOME NO LONGER HOMEBOUND (HH ONLY) 90.91
--- OUTSIDE RECORDS SUMMARY | 2024-11-23 12:14 | XMS_ITS | Continuity of Care Document ---
Author Organization [facility] [address] [place] [address] Phone [phone] Care Team Providers Care Tree Feller Operator Name Role Phone Ethan Issa Care Team Information Yeast Culture Operator [phone] Problems Active Problems Provider Date Hyperglycemia due to type 2 diabetes mellitus Terell Estrella M.D. Onset: 06/02/2023 Anemia Terell Estrella M.D. Onset: 0 06/02/2023 Obesity Terell Estrella M.D. Onset: 0 06/02/2023 Schizophrenia Terell Estrella M.D. Onset: 0 06/02/2023 Hypercholesterolemia Terell Estrella M.D. Ons et: 06/02/2023 Essential hypertension Terell Estrella M.D. O nset: 06/02/2023 Social History Type Date Description Comments Sex Unknown Tobacco Use Start: Unknown Never Smoked Cigarettes Smoking Status Reviewed: 11/03/23 Never Smoked [place] ETOH Use Never used alcohol Allergies and adverse reactions Description No Known Drug Allergies Medications Active Medications SIG Qnty Indications Order ing Provider Date Hsvbzoxi6qw/0.5ML Solution Pen-Inject 1 injection every week as directed 6ml Terell Estrella M.D. 09/05/2024 Freestyle Lucas 3/Sensor/Glucose Monitoring Zedkhn8Recgly Misc as directed 3units Terell Estrella M.D. 09/05/2024 Freestyle Lucas 3/[place]/Glucose Monitoring Swgart1Enrayl Device use with sensors to check blood sugar dx:e11.9 1units Terell Estrella M.D. 09/05/2024 12 Hour Mucus Relief ER Max [id number] Tablets ER 12HR Terell Estrella M.D. 02/11/2024 Trulicity1.5mg/0.5M L Solution Pen-Inject inject weekly 2ml Terell Estrella M.D. 02/11/2024 Metformin [id number] Tablets 1 tab by mouth twice a day 180tabs Po, Lorenver Benztropine Sqpxajbj5nl Tablets 1 in pm Unknown 00 Senna8.6mg Tablets take 2 tablets by mouth at bedtime 60tabs Po, Lorenver Zdoijazij2lf Tablets 1 tab by mouth twice a day as needed 60tabs Unknown Pjjiwymeh209rt Tablets 2 tab by mouth every day Unknown Ahxzvtaxq024tw Tablets 1 tab by mouth twice a day Unknown Atorvastatin Xtsmuva77cw Tablets 1 by mouth every day 90tabs Po, Lorenver Basaglar Beyoeft087Uegf/ML Solution Pen-Inject inject 15 unit subcutaneously every evening as directed Po, Lorenver Admffimrwko527vu Tablets 1 by mouth every day 90tabs Po, Lorenver /0 000 Vital Signs Date Vital Result Comment 08/23/2024 1:25pm BP Systolic 110 mmHg BP Diastolic 80 mmHg Heart Rate 84 /min Height 73 inches 6'1 Weight 197.12 lb BMI (Body Mass Index) 26.0 kg/m2 Results Test Acquired Date Facility Test Result [facility] [place] Laboratory test finding 08/23/2024 Inhouse Glucose Fingerstick 140 Hemoglobin A1c 11.6% Laboratory test finding 05/23/2024 Inhouse Glucose Fingerstick 180 Hemoglobin A1c 13.2% Laboratory test finding 02/15/2024 Inhouse Glucose Fingerstick 298 Hemoglobin A1c 7.9% Laboratory test finding 11/03/2023 Inhouse Glucose Fingerstick 170 Hemoglobin A1c 7.7% Laboratory test finding 07/28/2023 Inhouse Glucose Fingerstick 267 Laboratory test finding 06/28/2023 Inhouse Hemoglobin A1c 11.6% Glucose Fingerstick 336 Procedures Date Code Description Status 06/02/2023 NSHOWOFF No Show Office Visit Complet ed Medical Devices Description No Information Available Encounters Type Date Location Provider Dx Diagnosis Office Visit 08/23/2024 1:30p Main Office Terell Estrella M.D. E11.65 Type 2 diabetes mellitus with hyperglycemia Assessments Date Code Description Provider 08/23/2024 E11.65 Type 2 diabetes mellitus wit h hyperglycemia Terell Estrella M.D. Plan of Treatment Future Appointment(s):* 12/06/2024 1:00 pm - Terell Estrella M.D. at Main Office 05/23/2024 - Terell Estrella M.D.* E11.65 Type 2 diabetes mellitus with hyperglycemia Functional Status Description No Information Available Mental Status Description No Information Available Referrals Description No Information Available
--- NOTE | 2024-11-23 12:20 | MHC.PC.OV ---
Vital Signs 11/23/24 12:23 Height 5 ft 10 in Weight 200 lb BMI 28.7 BP 130/86 Blood Pressure Location Lt brachial Position Sitting Pulse 107 H Pulse Source Pulse Oximeter Pulse Oximetry (%) 97 Oxygen Delivery Method Room Air Intake Visit Reasons: PE Intake Note: Patient here for a physical exam Dairy Inspector Required: No Accompanied by: staff Allergies No Known Allergies [No Known Allergies*] Allergy (Verified 11/23/24 12:26) Medication List - Last Reconciled 11/23/24 by Ethan Issa MD acetaminophen ER (Tylenol 8 Hour) 650 mg PO Q4H atorvastatin 10 mg PO DAILY benztropine 1 mg PO DAILY benztropine 2 mg PO BEDTIME blood pressure monitor (Blood Pressure Kit) As directed blood sugar diagnostic (Prezacor No Coding strips) test daily clozapine (Clozaril) 400 mg PO BEDTIME clozapine (Clozaril) 100 mg PO BID cyanocobalamin (vitamin B-12) 1,000 mcg PO DAILY docusate sodium (Colace) 100 mg PO BID 30 days dulaglutide (Trulicity) 0.75 mg subcut QWEEK fenofibrate 160 mg PO DAILY fenofibrate micronized mg PO insulin glargine (Basaglar KwikPen U-100 Insulin) 15 units (0.15 mL) subcut QAM insulin needles (disposable) As directed lancets (BD Ultra Fine Lancets) once per day lancets ([employer] Lancets) test daily lisinopril 5 mg PO DAILY lorazepam (Ativan) 1 mg PO BID PRN magnesium hydroxide (Milk of Magnesia) 30 mL PO BEDTIME metformin 1,000 mg PO BID 90 days pen needle, diabetic (BD Ultra-Fine Mini Pen Needle) As directed injecting Lantus once a day risperidone microspheres ER (Risperdal Consta) 50 mg IM Q2W sennosides (senna) 17.2 mg (2 x 8.6 mg) PO BEDTIME Tobacco use date assessed: 10/19/24 Dental Screening Dental Screen Date: 10/19/24 HPI PE HPI Details The patient is a 44-year-old male presenting with ongoing management of Type 2 Diabetes Mellitus. The patient has a history of poor glycemic control, with hemoglobin A1c levels remaining elevated at approximately 8 over recent years, compared to a target of 6.5. The patient has been non-compliant with diabetes management, attributing difficulties to medication side effects which reportedly cause nausea. The patient?s lifestyle choices, including nutritional habits and alcohol intake, have not been optimized for glycemic control. Previous instructions on the critical nature of maintaining blood sugar levels to prevent complications like heart attack, stroke, kidney failure, and vision loss have been emphasized without substantial change. The patient is also managing anemia, reported to have persistently low blood counts over several years. Additional lifestyle factors include obesity and alcohol use, reported as consuming two six-packs weekly. He also regularly uses cannabis, in particular for its psychoactive effects. No recent surgeries or new medical diagnoses were reported. Other concerns such as excessive earwax have been noted. - Discussion of the importance of maintaining normal hemoglobin A1c levels to prevent complications - Emphasis on dietary management, including increased salad intake - Review of alcohol use and recommendation for moderation to reduce liver strain - Discussion about legal implications and health impacts of cannabis use, highlighting increased risks of cardiovascular events - Counseling on the risks associated with excessive alcohol and cannabis use - Recommendation for flu vaccination due to the flu season - Discussion about continuity of care if patient relocates - Alcohol consumption of two six-packs per week - Regular use of cannabis, with acknowledgment of its legality and associated health risks - Recent dietary changes include increased salad intake - Concern about hospital care affecting diabetes with negative past experiences elsewhere - General: Reports consuming a six-pack twice a week - Psychiatric: Reports regular cannabis use - Neurologic: Denies memory issues related to medication - Labs: Hemoglobin level showing mild anemia at 12.9 - Sodium level slightly low at 134, considered due to medication effect - Persistent elevated hemoglobin A1c reflecting poor diabetes control [facility] Medical History (Updated 11/23/24 @ 12:32 by Ethan Issa MD) Type 2 diabetes mellitus with hyperglycemia Surgical History (Updated 11/23/24 @ 12:21 by YVONNE Aguero) No pertinent past surgical history Family History (Updated 11/23/24 @ 12:22 by YVONNE Aguero) Other Lung cancer Social History (Updated 11/23/24 @ 12:47 by Ethan Issa MD) Housing: Other Alcohol intake: current Comment: 2x a week pack Patient Tobacco Use Status: Never used Tobacco Years Smoked: smokes pot e-Cigarette/Vaping Use: Never Used Second Hand Smoke Exposure: No service: No Current occupational status: employed Cognitive needs: Yes Hearing needs: No Vision needs: No Questionnaire PHQ-9 Over the last 2 weeks, how often have you been bothered by any of the following problems? 1. Little interest or pleasure in doing things: not at all 2. Feeling down, depressed, or hopeless: not at all 3. Trouble falling or staying asleep, or sleeping too much: more than half the days 4. Feeling tired or having little energy: not at all 5. Poor appetite or overeating: more than half the days 6. Feeling bad about yourself - or that you are a failure or have let yourself or your family down: not at all 7. Trouble concentrating on things, such as reading the newspaper or watching television: more than half the days 8. Moving or speaking so slowly that other people could have noticed. Or the opposite - being so fidgety or restless that you have been moving around a lot more than usual: not at all 9. Thoughts that you would be better off or of hurting yourself in some way: not at all Total score: 6 Depression Screening Interpretation: Positive Depression Screening Done: Yes Source: Developed by Drs. Leonard Smallwood, Alyssa Reyes, Juan Jose Hui and colleagues, with an educational shana from [employer]. Thrive Questionnaire Date Thrive assessed: 10/19/24 I am a: Patient What is your living situation today?: I have a steady place to live Within the past 12 months, did the food you bought not last and you didn't have the money to get more?: Never true Within the past 12 months, did you worry whether your food would run out before you got money to buy more?: Never true Do you have trouble paying for medicines?: No Do you have trouble getting transportation to medical appointments?: No Do you have trouble paying your heating and electricity bill?: No Do you have trouble taking care of your child, family member or friend?: No Do you have trouble with day-to-day activities such as bathing, preparing meals, shopping, managing finances, etc.?: No Are you currently unemployed and looking for a job?: No Are you interested in more education?: No Please select the resources that you would like help with: None Currently or been in a relationship where the following occur: No concerns reported THRIVE Score: 0 AUDIT C Alcohol Use Questionnaire (AUDIT-C) 1. How often do you have a drink containing alcohol?: 2-3 times a week 2. How many drinks containing alcohol do you have on a typical day when you are drinking?: 5 or 6 3. How often do you have six or more drinks on one occasion?: Weekly Total Score: 8 DENISE-7 AMB Questionnaire DENISE-7 Date DENISE - 7 assessed: 10/19/24 Feeling nervous, anxious, or on edge: 0 = Not at all Not being able to stop or control worryin = Not at all Worrying too much about different things: 0 = Not at all Trouble relaxin = Not at all Being so restless that it is hard to sit still: 0 = Not at all Becoming easily annoyed or irritable: 0 = Not at all Feeling afraid as if something awful might happen: 0 = Not at all Total DENISE-7 score (0-4 normal; 5-9 mild; 10-14 moderate; 15-21 severe): 0 Source: Developed by Drs. Leonard Smallwood, Alyssa Reyes, Juan Jose Hui and colleagues, with an educational shana from [employer]. Review of Systems Const Denies poor appetite and Denies weakness Eyes Denies no additional complaints ENT Reports Normal hearing present, Denies dizziness, Denies nasal congestion, Denies tinnitus and Denies sore throat Card Denies chest pain, Denies syncope, Denies rapid heart rate and Denies dyspnea Resp Denies cough and Denies dyspnea GI Denies change in stool character, Reports constipation, Denies diarrhea, Denies nausea and Denies vomiting Denies dysuria and Denies urinary frequency Neuro Reports Normal hearing present, Denies confusion, Denies dizziness, Denies syncope and Denies weakness Psych Denies confusion Physical exam (Primary Care) Vital Signs: Last Vital Signs Pulse 107 H 11/23/24 12:23 BP 130/86 11/23/24 12:23 Pulse Ox 97 11/23/24 12:23 Oxygen Delivery Method Room Air 11/23/24 12:23 BMI result Body Mass Index 28.7 Tobacco/Smoking Status: Tobacco use Status Tobacco use date assessed 10/19/24 11/23/24 12:24 Patient Tobacco Use Status Never used Tobacco 11/23/24 12:47 e-Cigarette/Vaping Use Never Used 11/23/24 12:47 PHQ-9: PHQ-9 Score PHQ-9: Total score 6 11/23/24 12:33 Depression Screening Interpretation: Positive Thrive Assessment: Date of Thrive Assessment Date Thrive assessed 10/19/24 11/23/24 12:24 Currently or been in a relationship where the following occur: No concerns reported Const General: No confusion Orientation/consciousness: No confusion HENMT Head: Yes normocephalic Ears: external ears normal and TM's normal bilaterally Face and sinus: Yes normal facial exam Mouth: moist mucous membranes Throat: Yes tonsils normal Eyes Conjunctivae: conjunctivae normal Pupils: Equal, round and reactive pupils present and Pupil accommodation reflex normal Direct Ophthalmoscopy: normal light reflex Neck Neck: No lymphadenopathy Thyroid: Thyroid normal Chest Chest palpation & inspection: normal inspection of the chest Resp Effort & Inspection: normal respiratory effort and no audible wheezes Auscultation: clear to auscultation bilaterally, no crackles, no wheezes and lung sounds not diminished Cardio Rate: regular rate Rhythm: regular rhythm Peripheral pulses: radial pulses present and dorsalis pedis present GI Other: declined Palpation (GI): no masses Auscultation: normal bowel sounds and normoactive bowel sounds Rectal Exam - Male: Yes deferred Other: declined Skin General skin exam: no rashes or lesions noted Rashes: no rashes Neuro General: No confusion Cranial nerves: Yes Equal, round and reactive pupils present and Yes Normal hearing present Cognition (Neuro): normal cognition Gait exam (Neuro): Normal gait present Motor exam (neuro): 5/5 motor strength present throughout Deep tendon reflexes (DTR's): Right brachioradialis reflex intensity grade: 2+, Left brachioradialis reflex intensity grade: 2+, Right patellar reflex intensity grade: 2+ and Left patellar reflex intensity grade: 2+ Extrem General: No edema Office Procedures Flu Questionnaire Does the patient have a severe egg allergy?: No Immunizations Fluarix Triv [id number] (PF) 45 mcg (15 mcg x 3)/0.5 mL IM syringe Performing Provider: Ethan Issa MD [facility] [place] [facility] Documented (not given) by: YVONNE Aguero on 12/26/24 12:27 Reason Not Given: Patient Refused Coding Level of Care Code Est Pt Prev Care 40-64y(22637) Diagnoses Annual physical exam Z00.00 Type 2 diabetes mellitus with hyperglycemia, without long-term current use of insulin E11.65 Diabetes mellitus computer information science professor insulin use: without computer information science professor use Primary hypertension I10 Hypertension type: primary hypertension Hypercholesterolemia E78.00 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 (2) Type 2 diabetes mellitus with hyperglycemia: Comment: [facility] Code(s): E11.65 - Type 2 diabetes mellitus with hyperglycemia Category: Medical Qualifiers: Diabetes mellitus computer information science professor insulin use: without computer information science professor use Qualified Code(s): E11.65 - Type 2 diabetes mellitus with hyperglycemia Plan: Decrease the amount of carbohydrate intake, pasta, bread, rice and potatoes are all sugar and that is aside from all the sweet stuff, remember that fruits are good but they are Sweet also. Hemoglobin A1c goal of less than 6.5 patient on the list is on Basaglar insulin 15 units in the morning metformin a 1000 mg twice a day trulicity. sp OLIVA (3) Hypertension: Code(s): I10 - Essential (primary) hypertension Category: Medical Qualifiers: Hypertension type: primary hypertension Qualified Code(s): I10 - Essential (primary) hypertension Plan: Continue with blood pressure medication. Decrease salt intake and exercise lisinopril 5 mg once a day (4) Hypercholesterolemia: Code(s): E78.00 - Pure hypercholesterolemia, unspecified Category: Medical Plan: Avoid fried foods, chicken skin, eggs, butter margarine, pastries and meat. Be it pork or beef they have a lot of cholesterol LDL goal of less than LDL goall of less than 100 and triglyceride of less than 150 (5) Schizophrenia: Comment: [facility] Code(s): F20.9 - Schizophrenia, unspecified Category: Medical Qualifiers: Schizophrenia type: disorganized schizophrenia Qualified Code(s): F20.1 - Disorganized schizophrenia Plan: Continue follow-up with psychiatry (6) Overweight (BMI 25.0-29.9): Code(s): E66.3 - Overweight Category: Medical Plan: Continue with diet and exercise Plan - Continue review and adjustment of diabetes medication to improve glycemic control - Advise on addressing dietary habits to help reduce A1c levels - Recommend monitoring anemia and review of possible causes potentially related to diet or diabetes - Discussed harm and advised moderation of alcohol intake - Education on potential cardiovascular risks with cannabis use - Recommend removal of earwax if it becomes problematic - Reaffirm diabetes management with regular follow-up visits During this visit, I discussed with the patient the current state of his diabetes management. The significance of maintaining an A1c level below 6.5 was addressed to prevent long-term complications. I expressed concern regarding his medication adherence, addressing the nausea reported and encouraged communication to adjust treatment as needed. We also explored the implications of his alcohol and cannabis use, highlighting risks and advising cautious use. Follow-up laboratory work was recommended for continued monitoring of anemia and sodium levels. I instructed him on proper personal care, sharing the necessity to adhere to health maintenance practices like flu vaccinations and considering alternatives if relocating affects current healthcare. - Continue with current diabetes medications and inform promptly if adverse effects occur - Focus on dietary changes; increase healthy food intake like salads - Moderate alcohol consumption - Be aware of health risks associated with cannabis use - Avoid using Q-tips for ear cleaning - Schedule regular follow-ups for diabetes management and anemia monitoring - Obtain a flu shot during the flu season Orders: Orders Influenza [id number] Immunization Today Z23 - Encounter for immunization
[2024-11-23 12:23] VITALS: BP 130/86; PULSE 107; O2SAT 97; BMI 28.7
== END 2024-11-23 12:57 | disposition home or self-care (01) ==
PROVIDERS: PCP Internal Medicine; Visit Provider Internal Medicine
DX: Z00.00 Encounter for general adult medical examination without abnormal findings (principal); E11.65 Type 2 diabetes mellitus with hyperglycemia; F20.1 Disorganized schizophrenia; E66.3 Overweight; Z68.28 Body mass index [BMI] 28.0-28.9, adult; I10 Essential (primary) hypertension; E78.00 Pure hypercholesterolemia, unspecified

== ENCOUNTER → 2024-11-23 12:12 | Outpatient (BNVA) | payer MEDICARE, MEDICAID, SELFPAY | PROVIDERS: PCP Internal Medicine; Visit Provider Internal Medicine | DX: Z00.00 Encounter for general adult medical examination without abnormal findings (principal); I10 Essential (primary) hypertension; E11.65 Type 2 diabetes mellitus with hyperglycemia; E78.00 Pure hypercholesterolemia, unspecified; F20.1 Disorganized schizophrenia; E66.3 Overweight; Z68.28 Body mass index [BMI] 28.0-28.9, adult; Z28.21 Immunization not carried out because of patient refusal | CPT/HCPCS: 96127; 99396 ==

== ENCOUNTER 2024-11-30 13:51 | Outpatient (REF) | payer MEDICARE, MEDICAID, SELFPAY ==
[2024-11-30 14:00] LABS: MANUAL DIFF FLAG NO
[2024-11-30 14:42] LABS: Basophils Absolute Auto 0.1 X10*3/uL (0.0-0.2); Basophils Percent Auto 0.5 % (0-2); Eosinophils Absolute Auto 0.1 X10*3/uL (0.0-0.4); Eosinophils Percent Auto 0.6 % (0-4); Hematocrit 34.7 % (42.0-52.0); Hemoglobin 12.4 g/dl (14.0-18.0); Imm Gran Abs Auto 0.05 X10*3/uL (0.00-0.03); Imm Gran Pct Auto 0.5 % (0.0-0.4); Lymphocytes Absolute Auto 2.8 X10*3/uL (1.2-4.9); Lymphocytes Percent Auto 25.4 % (20-40); Mean Corpuscular HGB Conc 35.7 g/dl (31.0-36.0); Mean Corpuscular Volume 81.3 fL (80.0-98.0); Mean Platelet Volume 9.8 fL (9.4-12.4); Monocytes Absolute Auto 0.6 X10*3/uL (0.1-1.2); Monocytes Percent Auto 5.7 % (2-11); Neutrophils Absolute Auto 7.4 x10*3/uL (2.0-8.3); Neutrophils Percent Auto 67.3 % (45-73); Platelet Count 281 X10*3/uL (160-400); Red Blood Count 4.27 X10*6/uL (4.60-5.80); Red Cell Distribution Width 12.1 % (11.0-16.0)
--- OUTSIDE RECORDS SUMMARY | 2024-11-30 15:13 | XMS_ITS | Clinical Summary ---
Author Organization Unknown Care Team Providers Care Customer Account Specialist Name Role Phone LUCINA RAMAN, NENA Unavailable Unavailable XIAO RN, LUCY Unavailable Unavailable LONG RN, ZAHIRA Unavailable Unavailable MEGAN RN, DANAE Unavailable Unavailable Payers Payer Name Policy Type Policy Number Effective Date Expira tion Date [place] [id number] [place]IC[place] - [place] - PDGM [id number] ON DEMAND MEDICARE - [facility] BILLING - ABN [id number] Problems Condition Name Condition Details Condition Category [...] susp,extend ed release 01-15 00:00: 00 Yes [id number] 50 mg EVERY OTHER WEEK 50 mg EVERY OTHER WEEK (route: intramuscu lar) Med Classific ation: Central Nervous System Agents benztropine 1 mg tablet 01-23 00:00: 00 Yes [id number] Per instruc tions EVERY DAILY AT BEDTIME Per instructio ns EVERY DAILY AT BEDTIME (route: oral) Med Classific ation: Central Nervous System Agents Januvia 100 mg tablet 02-12 00:00: 00 Yes [id number] 100 mg EVERY AM 100 mg EVERY AM (route: oral) Med Classific ation: Endocrine metformin 500 mg tablet 01-23 00:00: 00 Yes [id number] Per instruc tions TWICE DAILY Per instructio ns TWICE DAILY (route: oral) Med Classific ation: Endocrine fenofibrate nanocrystal lized 145 mg tablet 01-23 00:00: 00 Yes [id number] Per instruc tions EVERY DAY Per instructio ns EVERY DAY (route: oral) Med Classific ation: Cardiovas cular Therapy Agents senna 8.6 mg tablet 01-23 00:00: 00 Yes [id number] Per instruc tions DAILY AT BEDTIME Per instructio ns DAILY AT BEDTIME (route: oral) Med Classific ation: Gastroint estinal Therapy Agents DOK 100 mg capsule 01-23 00:00: 00 Yes [id number] Per instruc tions TWICE DAILY Per instructio ns TWICE DAILY (route: oral) Med Classific ation: Gastroint estinal Therapy Agents lorazepam 1 mg tablet 01-23 00:00: 00 Yes [id number] Per instruc tions TWICE DAILY Per instructio ns TWICE DAILY (route: oral) Med Classific ation: Central Nervous System Agents clozapine 200 mg tablet 01-23 00:00: 00 Yes [id number] Per instruc tions DAILY AT BEDTIME Per instructio ns DAILY AT BEDTIME (route: oral) Med Classific ation: Central Nervous System Agents clozapine 100 mg tablet 01-23 00:00: 00 Yes [id number] Per instruc tions TWICE DAILY IN THE MORNING AND AT BEDTIME Per instructio ns TWICE DAILY IN THE MORNING AND AT BEDTIME (route: oral) Med Classific ation: Central Nervous System Agents Arthritis Pain Relief (acetaminop hen) ER 650 mg tablet,exte nd release 01-23 00:00: 00 Yes [id number] FOR PAIN Per instruc tions EVERY FOUR HOURS NEEDED Per instructio ns EVERY FOUR HOURS NEEDED (route: oral) Med Classific ation: Analgesic , Anti-infl ammatory or Antipyret ic glimepiride 2 mg tablet 01-23 00:00: 00 Yes [id number] Per instruc tions EVERY DAY Per instructio ns EVERY DAY (route: oral) Med Classific ation: Endocrine Basaglar KwikPen U-100 Insulin 100 unit/mL (3 mL) subcutaneou s 01-15 00:00: 00 Yes [id number] 15 unit EVERY AM 15 unit EVERY AM (route: subcutaneo us) Med Classific ation: Endocrine Mounjaro 2.5 mg/0.5 mL subcutaneou s pen injector 16 00:00: 00 Yes [id number] 2.5 mg WEEKLY 2.5 mg WEEKLY (route: [...] AWARENESS FOR SAFETY AND WILL NOTIFY CLINICAL CRITICAL CARE CNS AND PHYSICIAN/PROVIDER WITH ANY CHANGE IN CONDITION. [code = SKILLED NURSE WILL MAINTAIN SITUATIONAL AWARENESS FOR SAFETY AND WILL NOTIFY CLINICAL CRITICAL CARE CNS AND PHYSICIAN/PROVIDER WITH ANY CHANGE IN CONDITION.] [...] A WEEK AND PRE-POUR MEDICATIONS TILL NEXT SHELTER VISIT PER MEDICATION LIST. [code = SKILLED NURSE TO ADMINISTER MEDICATIONS FOUR TIMES A WEEK AND PRE-POUR MEDICATIONS TILL NEXT SHELTER VISIT PER MEDICATION LIST.] Future Scheduled Test [...] Goal - TAKING MY MED S Goal 2022-02-05 Patient Goal - I WANT TO GET MY BICYCLE TO RIDE IN THE CEMENTARY. TOO MANY CARS AROUND HERE. Goal 2021-10-08 Patient Goal - I WANT TO GET MY BICYCLE TO RIDE IN THE CEMENTARY. TOO MANY CARS AROUND HERE. Goal Provider Goal - A PLAN OF CARE WILL BE ESTABLISHED THAT MEETS PATIENT'S SHELTER NEEDS AND INCLUDES PATIENT GOAL FOR HOME [...] End Date/Time Encounter Type Admission Type Attending [facility] Care Department Encounter ID Discharge Date Discharge Status Discharge Condition Discharge Reason Percent Goals Met 2021-02-12 00:00:00 2024-06-07 00:00:00 Outpatient RECERTIFIC ZAHIRA PISANO [facility] [id number] 2024-06-07 00:00:00 DISCHARGED /TRANSFERR ED TO [facility] HOME NO LONGER HOMEBOUND (HH ONLY) 90.91
--- OUTSIDE RECORDS SUMMARY | 2024-11-30 15:13 | XMS_ITS | Clinical Summary ---
Author Organization Unknown Care Team Providers Care Business Operations Coordinator Name Role Phone LUCINA RAMAN, NENA Unavailable Unavailable XIAO RN, LUCY Unavailable Unavailable LONG RN, ZAHIRA Unavailable Unavailable MEGAN RN, DANAE Unavailable Unavailable Payers Payer Name Policy Type Policy Number Effective Date Expira tion Date [place] [id number] [place] PDGM [id number] ON DEMAND MEDICARE - [facility] BILLING - ABN [id number] Problems Condition Name Condition Details Condition Category [...] susp,extend ed release 01-15 00:00: 00 Yes [id number] 50 mg EVERY OTHER WEEK 50 mg EVERY OTHER WEEK (route: intramuscu lar) Med Classific ation: Central Nervous System Agents benztropine 1 mg tablet 01-23 00:00: 00 Yes [id number] Per instruc tions EVERY DAILY AT BEDTIME Per instructio ns EVERY DAILY AT BEDTIME (route: oral) Med Classific ation: Central Nervous System Agents Januvia 100 mg tablet 02-12 00:00: 00 Yes [id number] 100 mg EVERY AM 100 mg EVERY AM (route: oral) Med Classific ation: Endocrine metformin 500 mg tablet 01-23 00:00: 00 Yes [id number] Per instruc tions TWICE DAILY Per instructio ns TWICE DAILY (route: oral) Med Classific ation: Endocrine fenofibrate nanocrystal lized 145 mg tablet 01-23 00:00: 00 Yes [id number] Per instruc tions EVERY DAY Per instructio ns EVERY DAY (route: oral) Med Classific ation: Cardiovas cular Therapy Agents senna 8.6 mg tablet 01-23 00:00: 00 Yes [id number] Per instruc tions DAILY AT BEDTIME Per instructio ns DAILY AT BEDTIME (route: oral) Med Classific ation: Gastroint estinal Therapy Agents DOK 100 mg capsule 01-23 00:00: 00 Yes [id number] Per instruc tions TWICE DAILY Per instructio ns TWICE DAILY (route: oral) Med Classific ation: Gastroint estinal Therapy Agents lorazepam 1 mg tablet 01-23 00:00: 00 Yes [id number] Per instruc tions TWICE DAILY Per instructio ns TWICE DAILY (route: oral) Med Classific ation: Central Nervous System Agents clozapine 200 mg tablet 01-23 00:00: 00 Yes [id number] Per instruc tions DAILY AT BEDTIME Per instructio ns DAILY AT BEDTIME (route: oral) Med Classific ation: Central Nervous System Agents clozapine 100 mg tablet 01-23 00:00: 00 Yes [id number] Per instruc tions TWICE DAILY IN THE MORNING AND AT BEDTIME Per instructio ns TWICE DAILY IN THE MORNING AND AT BEDTIME (route: oral) Med Classific ation: Central Nervous System Agents Arthritis Pain Relief (acetaminop hen) ER 650 mg tablet,exte nd release 01-23 00:00: 00 Yes [id number] FOR PAIN Per instruc tions EVERY FOUR HOURS NEEDED Per instructio ns EVERY FOUR HOURS NEEDED (route: oral) Med Classific ation: Analgesic , Anti-infl ammatory or Antipyret ic glimepiride 2 mg tablet 01-23 00:00: 00 Yes [id number] Per instruc tions EVERY DAY Per instructio ns EVERY DAY (route: oral) Med Classific ation: Endocrine Basaglar KwikPen U-100 Insulin 100 unit/mL (3 mL) subcutaneou s 01-15 00:00: 00 Yes [id number] 15 unit EVERY AM 15 unit EVERY AM (route: subcutaneo us) Med Classific ation: Endocrine Mounjaro 2.5 mg/0.5 mL subcutaneou s pen injector 16 00:00: 00 Yes [id number] 2.5 mg WEEKLY 2.5 mg WEEKLY (route: [...] AWARENESS FOR SAFETY AND WILL NOTIFY CLINICAL DIRECTOR INDUSTRIAL RELATIONS AND PHYSICIAN/PROVIDER WITH ANY CHANGE IN CONDITION. [code = SKILLED NURSE WILL MAINTAIN SITUATIONAL AWARENESS FOR SAFETY AND WILL NOTIFY CLINICAL DIRECTOR INDUSTRIAL RELATIONS AND PHYSICIAN/PROVIDER WITH ANY CHANGE IN CONDITION.] [...] A WEEK AND PRE-POUR MEDICATIONS TILL NEXT PENITENTIARY VISIT PER MEDICATION LIST. [code = SKILLED NURSE TO ADMINISTER MEDICATIONS FOUR TIMES A WEEK AND PRE-POUR MEDICATIONS TILL NEXT PENITENTIARY VISIT PER MEDICATION LIST.] Future Scheduled Test [...] CARE WILL BE ESTABLISHED THAT MEETS PATIENT'S PENITENTIARY NEEDS AND INCLUDES PATIENT GOAL FOR HOME [...] End Date/Time Encounter Type Admission Type Attending [facility] Care Department Encounter ID Discharge Date Discharge Status Discharge Condition Discharge Reason Percent Goals Met 2021-02-12 00:00:00 2024-06-07 00:00:00 Outpatient RECERTIFIC ZAHIRA PISANO [facility] [id number] 2024-06-07 00:00:00 DISCHARGED /TRANSFERR ED TO A [facility] OR [facility] HOME NO LONGER HOMEBOUND (HH ONLY) 90.91
== END 2024-11-30 13:52 | disposition home or self-care (01) ==
LOC: HO.LABR 13:51
PROVIDERS: PCP Internal Medicine; Visit Provider Psychiatry & Neurology Psychiatry
DX: Z79.899 Other long term (current) drug therapy (principal)
CPT/HCPCS: 36415; 85025

== ENCOUNTER 2025-01-01 13:16 | Outpatient (REF) | payer MEDICARE, MEDICAID, SELFPAY ==
[2025-01-01 13:27] LABS: MANUAL DIFF FLAG NO
[2025-01-01 13:52] LABS: Basophils Absolute Auto 0.1 X10*3/uL (0.0-0.2); Basophils Percent Auto 0.5 % (0-2); Eosinophils Percent Auto 0.4 % (0-4); Hematocrit 35.3 % (42.0-52.0); Hemoglobin 12.6 g/dl (14.0-18.0); Imm Gran Abs Auto 0.05 X10*3/uL (0.00-0.03); Imm Gran Pct Auto 0.5 % (0.0-0.4); Lymphocytes Absolute Auto 2.5 X10*3/uL (1.2-4.9); Lymphocytes Percent Auto 26.7 % (20-40); Mean Corpuscular HGB Conc 35.7 g/dl (31.0-36.0); Mean Corpuscular Volume 81.3 fL (80.0-98.0); Mean Platelet Volume 9.7 fL (9.4-12.4); Monocytes Absolute Auto 0.5 X10*3/uL (0.1-1.2); Monocytes Percent Auto 5.3 % (2-11); Neutrophils Absolute Auto 6.2 x10*3/uL (2.0-8.3); Neutrophils Percent Auto 66.6 % (45-73); Platelet Count 306 X10*3/uL (160-400); Red Blood Count 4.34 X10*6/uL (4.60-5.80); Red Cell Distribution Width 12.3 % (11.0-16.0); White Blood Count 9.4 X10*3/uL (4.8-10.8)
== END 2025-01-01 13:17 | disposition home or self-care (01) ==
LOC: HO.LABR 13:16
PROVIDERS: Visit Provider Psychiatry & Neurology Psychiatry
DX: Z79.899 Other long term (current) drug therapy (principal)
CPT/HCPCS: 36415; 85025

== ENCOUNTER 2025-01-25 14:19 | Outpatient (REF) | payer MEDICARE, MEDICAID, SELFPAY ==
[2025-01-25 14:39] LABS: MANUAL DIFF FLAG NO
[2025-01-25 15:13] LABS: Basophils Absolute Auto 0.1 X10*3/uL (0.0-0.2); Basophils Percent Auto 0.5 % (0-2); Eosinophils Absolute Auto 0.1 X10*3/uL (0.0-0.4); Eosinophils Percent Auto 0.7 % (0-4); Hematocrit 39.3 % (42.0-52.0); Hemoglobin 13.6 g/dl (14.0-18.0); Imm Gran Abs Auto 0.06 X10*3/uL (0.00-0.03); Imm Gran Pct Auto 0.4 % (0.0-0.4); Lymphocytes Absolute Auto 2.8 X10*3/uL (1.2-4.9); Lymphocytes Percent Auto 20.8 % (20-40); Mean Corpuscular HGB Conc 34.6 g/dl (31.0-36.0); Mean Corpuscular Hemoglobin 28.9 pg (27.0-33.0); Mean Corpuscular Volume 83.6 fL (80.0-98.0); Mean Platelet Volume 9.6 fL (9.4-12.4); Monocytes Absolute Auto 0.8 X10*3/uL (0.1-1.2); Monocytes Percent Auto 6.1 % (2-11); Neutrophils Absolute Auto 9.7 x10*3/uL (2.0-8.3); Neutrophils Percent Auto 71.5 % (45-73); Platelet Count 345 X10*3/uL (160-400); Red Cell Distribution Width 12.5 % (11.0-16.0); White Blood Count 13.5 X10*3/uL (4.8-10.8)
--- OUTSIDE RECORDS SUMMARY | 2025-01-25 17:27 | XMS_ITS | Continuity of Care Document ---
Author Organization [facility] [address] [place] [address] Phone [phone] Care Team Providers Care Spring Coiling Machine Setter Name Role Phone Ethan Issa Care Team Information Civil Engineering Professor + [phone] Problems Active Problems Provider Date Hyperglycemia due [...] SIG Qnty Indications Order ing Provider Date Bqksrhtr0pi/0.5ML Solution Auto-Inject 1 injection every week as directed 6ml Terell Estrella M.D. 09/05/2024 Freestyle Lucas 3/Sensor/Glucose Monitoring Mjfxbk7Fihoai Misc as directed 3units Terell Estrella M.D. 09/05/2024 Freestyle Lucas 3/[place]/Glucose Monitoring Bnscxi2Hxfujm Device use with sensors to check blood sugar dx:e11.9 1units Terell Estrella M.D. 09/05/2024 12 Hour Mucus Relief ER Max Vryzxzxm4734at Tablets ER 12HR Terell Estrella M.D. 02/11/2024 Trulicity1.5mg/0.5M L Solution Pen-Inject inject weekly 2ml Terell Estrella M.D. 02/11/2024 Metformin ZKZ2467dj Tablets 1 tab by mouth twice a day 180tabs Po, Lorenver Benztropine Quotdxzs2as Tablets 1 in pm Unknown 00 Senna8.6mg Tablets take 2 tablets by mouth at bedtime 60tabs Po, Lorenver Gcbbwxhua4pc Tablets 1 tab by mouth twice a day as needed 60tabs Unknown Iuuuzexpx325qu Tablets 2 tab by mouth every day Unknown Dlslwyztg321xq Tablets 1 tab by mouth twice a day Unknown Atorvastatin Plaihgs41qu Tablets 1 by mouth every day 90tabs Po, Lorenver Basaglar Kaeuaoi710Kvuk/ML Solution Pen-Inject inject 15 unit subcutaneously every evening as directed Po, Lorenver Ljjplxsojhy069kl Tablets 1 by mouth every day 90tabs Po, Lorenver /0 000 Vital Signs Date Vital Result Comment 12/06/2024 1:02pm BP Systolic 100 mmHg BP Diastolic 80 mmHg Heart Rate 76 /min Height 73 inches 6'1 Weight 202.12 lb BMI (Body Mass Index) 26.7 kg/m2 Results Test Acquired Date Facility Test Result H/L Range N ote Laboratory test finding 12/06/2024 Inhouse Glucose Fingerstick 194 Hemoglobin A1c 11.3% Laboratory test finding 08/23/2024 Inhouse Glucose Fingerstick [...] Date Location Provider Dx Diagnosis Office Visit 12/06/2024 1:00p Main Office Terell Estrella M.D. E11.65 Type 2 diabetes mellitus with hyperglycemia Assessments Date Code Description Provider 12/06/2024 E11.65 Type 2 diabetes mellitus wit h hyperglycemia Terell Estrella M.D. Plan of Treatment Future Appointment(s):* 03/27/2025 2:30 pm - Terell Estrella M.D. at Main Office 05/23/2024 - Terell Estrella M.D.* E11.65 Type 2 diabetes mellitus with hyperglycemia Functional Status Description No Information Available Mental Status Description No Information Available Referrals Description No Information Available
== END 2025-01-25 14:20 | disposition home or self-care (01) ==
LOC: HO.LAB 14:19
PROVIDERS: PCP Internal Medicine; Visit Provider Psychiatry & Neurology Psychiatry
DX: Z79.899 Other long term (current) drug therapy (principal)
CPT/HCPCS: 36415; 85025

== ENCOUNTER 2025-02-05 13:03 | Outpatient (AMB) | payer MEDICARE, MEDICAID, SELFPAY ==
--- NOTE | 2025-02-05 13:15 | A.OFFPC_ITS ---
Vital Signs 02/05/25 13:22 Height 5 ft 10 in Weight 209 lb BMI 30.0 BP 120/86 Blood Pressure Location Lt brachial Position Sitting Pulse 94 Pulse Source Pulse Oximeter Pulse Oximetry (%) 97 Oxygen Delivery Method Room Air Intake Visit Reasons: DM Intake Note: Patient here for a follow up DM Host Coordinator Required: No Accompanied by: Staff Allergies No Known Allergies [No Known Allergies*] Allergy (Verified 02/05/25 13:23) Tobacco use date assessed: 02/05/25 Dental Screening Dental Screen Date: 02/05/25 Did you have a dental visit in the last 12 months?: No Did you have a dental problem in the last 6 months where you did not have access to dental care?: No Was dental information given to patient?: Patient has dentist [facility] Medical History (Updated 02/05/25 @ 13:28 by Ethan Issa MD) Type 2 diabetes mellitus with hyperglycemia Surgical History No pertinent past surgical history Family History Other Lung cancer Social History Housing: Other Alcohol intake: current Comment: 2x a week pack Patient Tobacco Use Status: Never used Tobacco Years Smoked: smokes pot e-Cigarette/Vaping Use: Never Used Second Hand Smoke Exposure: No service: No Current occupational status: employed Cognitive needs: Yes Hearing needs: No Vision needs: No Questionnaire PHQ-9 Over the last 2 weeks, how often have you been bothered by any of the following problems? 1. Little interest or pleasure in doing things: not at all 2. Feeling down, depressed, or hopeless: not at all 3. Trouble falling or staying asleep, or sleeping too much: not at all 4. Feeling tired or having little energy: not at all 5. Poor appetite or overeating: not at all 6. Feeling bad about yourself - or that you are a failure or have let yourself or your family down: not at all 7. Trouble concentrating on things, such as reading the newspaper or watching television: not at all 8. Moving or speaking so slowly that other people could have noticed. Or the opposite - being so fidgety or restless that you have been moving around a lot more than usual: not at all 9. Thoughts that you would be better off or of hurting yourself in some way: not at all Total score: 0 Depression Screening Interpretation: Negative Depression Screening Done: Yes Source: Developed by Drs. Leonard Smallwood, Alyssa Reyes, Juan Jose Hui and colleagues, with an educational shana from [employer]. Thrive Questionnaire Date Thrive assessed: 02/05/25 I am a: Patient What is your living situation today?: I have a steady place to live Within the past 12 months, did the food you bought not last and you didn't have the money to get more?: Never true Within the past 12 months, did you worry whether your food would run out before you got money to buy more?: Never true Do you have trouble paying for medicines?: No Do you have trouble getting transportation to medical appointments?: No Do you have trouble paying your heating and electricity bill?: No Do you have trouble taking care of your child, family member or friend?: No Do you have trouble with day-to-day activities such as bathing, preparing meals, shopping, managing finances, etc.?: No Are you currently unemployed and looking for a job?: No Are you interested in more education?: No Please select the resources that you would like help with: None Currently or been in a relationship where the following occur: No concerns reported THRIVE Score: 0 AUDIT C Alcohol Use Questionnaire (AUDIT-C) 1. How often do you have a drink containing alcohol?: 2-3 times a week 2. How many drinks containing alcohol do you have on a typical day when you are drinking?: 5 or 6 3. How often do you have six or more drinks on one occasion?: Weekly Total Score: 8 DENISE-7 AMB Questionnaire DENISE-7 Date DENISE - 7 assessed: 02/05/25 Feeling nervous, anxious, or on edge: 0 = Not at all Not being able to stop or control worryin = Not at all Worrying too much about different things: 0 = Not at all Trouble relaxin = Not at all Being so restless that it is hard to sit still: 0 = Not at all Becoming easily annoyed or irritable: 0 = Not at all Feeling afraid as if something awful might happen: 0 = Not at all Total DENISE-7 score (0-4 normal; 5-9 mild; 10-14 moderate; 15-21 severe): 0 Source: Developed by Drs. Leonard Smallwood, Alyssa Reyes, Juan Jose Hui and colleagues, with an educational shana from [employer]. Physical exam (Primary Care) Vital Signs: Last Vital Signs Pulse 94 02/05/25 13:22 BP 120/86 02/05/25 13:22 Pulse Ox 97 02/05/25 13:22 Oxygen Delivery Method Room Air 02/05/25 13:22 BMI result Body Mass Index 30.0 Tobacco/Smoking Status: Tobacco use Status Tobacco use date assessed 10/19/24 02/05/25 13:15 Patient Tobacco Use Status Never used Tobacco 02/05/25 13:15 e-Cigarette/Vaping Use Never Used 02/05/25 13:15 Depression Screening Interpretation: Negative Thrive Assessment: Date of Thrive Assessment Date Thrive assessed 02/05/25 02/05/25 13:15 Currently or been in a relationship where the following occur: No concerns reported Const General: alert; No acute distress Eyes Conjunctivae: conjunctivae normal Resp Auscultation: clear to auscultation bilaterally Cardio Rate: regular rate Rhythm: regular rhythm GI Inspection: Yes normal to inspection Extrem General: Yes normal to inspection and No edema Results AMB Hemoglobin A1c AMB Hemoglobin A1c 9.8 % Last Edit by YVONNE Aguero on 02/05/25 13:3 0 Coding Level of Care Code Est Pt Level 4 (76729) Complex EM visit Add On G2211 Diagnoses Type 2 diabetes mellitus with hyperglycemia, without long-term current use of insulin E11.65 Diabetes mellitus longwall shearer operator insulin use: without penitentiary use Obesity (BMI 30.0-34.9) E66.811 Primary hypertension I10 Hypertension type: primary hypertension Hypercholesterolemia E78.00 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 Assessment & Plan Assessment & Plan (1) Type 2 diabetes mellitus with hyperglycemia: Comment: [facility] Code(s): E11.65 - Type 2 diabetes mellitus with hyperglycemia Category: Medical Qualifiers: Diabetes mellitus longwall shearer operator insulin use: without penitentiary use Qualified Code(s): E11.65 - Type 2 diabetes mellitus with hyperglycemia Plan: Decrease the amount of carbohydrate intake, pasta, bread, rice and potatoes are all sugar and that is aside from all the sweet stuff, remember that fruits are good but they are Sweet also. Patient has been seen by Endocrinology on Trulicity at 0.75 glargine insulin metformin (2) Obesity (BMI 30.0-34.9): Code(s): E66.811 - Obesity, class 1 Category: Medical Plan: Diet and exercise (3) Hypertension: Code(s): I10 - Essential (primary) hypertension Category: Medical Qualifiers: Hypertension type: primary hypertension Qualified Code(s): I10 - Essential (primary) hypertension Plan: Continue with blood pressure medication. Decrease salt intake and exercise on lisinopril 5 mg once a day (4) Hypercholesterolemia: Code(s): E78.00 - Pure hypercholesterolemia, unspecified Category: Medical Plan: Avoid fried foods, chicken skin, eggs, butter margarine, pastries and meat. Be it pork or beef they have a lot of cholesterol patient takes fenofibrate and atorvastatin LDL goal of less than 100 and triglyceride of less than 150 (5) Schizophrenia: Comment: [facility] Code(s): F20.9 - Schizophrenia, unspecified Category: Medical Qualifiers: Schizophrenia type: disorganized schizophrenia Qualified Code(s): F20.1 - Disorganized schizophrenia Plan: Continue follow-up with counseling and therapy Plan History of Present Illness The patient is a 45-year-old male presenting for a follow-up visit regarding his ongoing management of several chronic conditions including schizophrenia, type 2 diabetes mellitus, hypercholesterolemia, hypertension, chronic anemia, and obesity. Despite a transition to [facility] leading to a decrease in his hemoglobin A1c, it remains above the target range. Triglycerides remain elevated even though LDL cholesterol is controlled. There is an ongoing issue with weight management as the patient has transitioned from overweight to an obese status. Previous bloodwork indicated mild hyponatremia and chronic anemia. The patient preferred non-invasive colon cancer screening that needs to be repeated due to submission issues. His activity levels have decreased, which may be contributing to his weight gain. Health Maintenance - Colon cancer screening last performed in 2014; efforts to complete stool-based testing instead of colonoscopy ongoing. - Blood glucose management with emphasis on reducing Hemoglobin A1c to below 7, currently at 9.8. - Emphasis on weight management as BMI indicates obesity category. - Monitoring and managing cholesterol levels, LDL managed at 75, triglycerides at 283. Social History - Current BMI indicates obesity with recent weight gain of 9 pounds. - Reduced activity levels noted with lack of physical exercise, such as biking. Review of Systems - Respiratory: Reports persistent cough. - Constitutional: Denies any new swelling. Physical Exam Results - Labs: Hemoglobin A1c reported between 11 previously, now at 9.8 - Blood glucose level noted at 277. - Current lipid profile: LDL at 75, Triglycerides at 283. - Chronic anemia reported with hemoglobin 13.6, hematocrit 39.3. - Mild leukocytosis at 13.5 - Mild hyponatremia at sodium level 134 Plan The management of the patient's uncontrolled type 2 diabetes mellitus includes continued use of Mounjaro, monitoring hemoglobin A1c to achieve the target level. Hypercholesterolemia surveillance will continue, with no current adjustments to fenofibrate. Emphasizing weight management strategies will involve encouraging increased physical activity and dietary modifications, recognizing the recent escalation to obesity. A non-invasive colon cancer screening will be repeated following previous submission issues. Ongoing treatment for schizophrenia continues as established. Patient was informed and verbally consented to the use of an ambient scribe for clinic note documentation during this visit. Discussion Notes We discussed with the patient the management of his chronic diabetes, reaffirming the need to maintain hemoglobin A1c below the ideal target level of 6.5, while acknowledging the progress from a prior level of 11 to the current 9.8. We reviewed the patient's lipid profile, deciding no dose adjustment is necessary for fenofibrate at this time. Discussed obesity concerns and encouraged the patient to increase physical activity, such as biking, to help manage weight. In regards to colon cancer screening, we conversed about resubmitting the stool-based sample for accurate testing, reiterating its importance in preventative care. The patient confirmed understanding and agreement with the outlined follow-up and management plan. Patient Instructions - Continue taking Mounjaro as prescribed and monitor any symptoms. - Increase physical activity and make dietary changes to help reduce weight. - Complete and submit the non-invasive colon cancer screening promptly. - Monitor blood glucose levels regularly. - Return for follow-up in three months or sooner if there are concerns. - Stay up-to-date with all prescribed medications. - Engage in lifestyle changes to support weight and cholesterol management. Orders: Orders AMB Hemoglobin A1c Today E11.65 - Type 2 diabetes mellitus with hyperglycemia Medications: Changed From insulin glargine 15 units (0.15 mL) subcut QAM 15 mL 3RF E11.65 - Type 2 diabetes mellitus with hyperglycemia To insulin glargine 22 units (0.22 mL) subcut QAM 15 mL 3RF E11.65 - Type 2 diabetes mellitus with hyperglycemia
[2025-02-05 13:22] VITALS: BP 120/86; PULSE 94; O2SAT 97
--- OUTSIDE RECORDS SUMMARY | 2025-02-05 14:38 | XMS_ITS | Continuity of Care Document ---
Author Organization [facility] [address] [place] [address] Phone [phone] Care Team Providers Care Peanut Picker Name Role Phone Ethan Issa Care Team Information Apparel Embroidery Digitizer + [phone] Problems Active Problems Provider Date Hyperglycemia due [...] SIG Qnty Indications Order ing Provider Date Gzkwctim1lo/0.5ML Solution Auto-Inject 1 injection every week as directed 6ml Terell Estrella M.D. 09/05/2024 Freestyle Lucas 3/Sensor/Glucose Monitoring Gryhvq7Ckyhfu Misc as directed 3units Terell Estrella M.D. 09/05/2024 Freestyle Lucas 3/Milo/Glucose Monitoring Jzajfm8Gpkigp Device use with sensors to check blood sugar dx:e11.9 1units Terell Estrella M.D. 09/05/2024 12 Hour Mucus Relief ER Max Jwcftpzh4103ay Tablets ER 12HR Terell Estrella M.D. 02/11/2024 Trulicity1.5mg/0.5M L Solution Pen-Inject inject weekly 2ml Terell Estrella M.D. 02/11/2024 Metformin QFM4591th Tablets 1 tab by mouth twice a day 180tabs Po, Lorenver Benztropine Tvmqjlev8kk Tablets 1 in pm Unknown 00 Senna8.6mg Tablets take 2 tablets by mouth at bedtime 60tabs Po, Lorenver Gcrllupvz8ii Tablets 1 tab by mouth twice a day as needed 60tabs Unknown Wnvvfzpcm045qz Tablets 2 tab by mouth every day Unknown Gvymvyoao091qv Tablets 1 tab by mouth twice a day Unknown Atorvastatin Jxltlsa09xh Tablets 1 by mouth every day 90tabs Po, Lorenver Basaglar Nzxbjel730Ydfq/ML Solution Pen-Inject inject 15 unit subcutaneously every evening as directed Po, Lorenver Imoesjzqqwu009mm Tablets 1 by mouth every day 90tabs [...]
== END 2025-02-05 13:45 | disposition home or self-care (01) ==
PROVIDERS: PCP Internal Medicine; Visit Provider Internal Medicine
DX: E11.65 Type 2 diabetes mellitus with hyperglycemia (principal); F20.1 Disorganized schizophrenia; E66.811 Obesity, class 1; Z68.30 Body mass index [BMI] 30.0-30.9, adult; I10 Essential (primary) hypertension; E78.00 Pure hypercholesterolemia, unspecified

== ENCOUNTER → 2025-02-05 13:03 | Outpatient (BNVA) | payer MEDICARE, MEDICAID, SELFPAY | PROVIDERS: PCP Internal Medicine; Visit Provider Internal Medicine | DX: E11.65 Type 2 diabetes mellitus with hyperglycemia (principal); E66.811 Obesity, class 1; I10 Essential (primary) hypertension; E78.00 Pure hypercholesterolemia, unspecified; F20.1 Disorganized schizophrenia | CPT/HCPCS: 83036; 99212 ==

== ENCOUNTER 2025-02-21 12:23 | Outpatient (REF) | payer MEDICARE, MEDICAID, SELFPAY ==
[2025-02-21 12:34] LABS: MANUAL DIFF FLAG NO
[2025-02-21 13:16] LABS: Basophils Absolute Auto 0.1 X10*3/uL (0.0-0.2); Basophils Percent Auto 0.6 % (0-2); Eosinophils Absolute Auto 0.1 X10*3/uL (0.0-0.4); Eosinophils Percent Auto 0.6 % (0-4); Hematocrit 36.5 % (42.0-52.0); Hemoglobin 12.8 g/dl (14.0-18.0); Imm Gran Abs Auto 0.09 X10*3/uL (0.00-0.03); Imm Gran Pct Auto 0.8 % (0.0-0.4); Lymphocytes Absolute Auto 2.4 X10*3/uL (1.2-4.9); Mean Corpuscular HGB Conc 35.1 g/dl (31.0-36.0); Mean Corpuscular Hemoglobin 28.9 pg (27.0-33.0); Mean Corpuscular Volume 82.4 fL (80.0-98.0); Mean Platelet Volume 9.4 fL (9.4-12.4); Monocytes Absolute Auto 0.6 X10*3/uL (0.1-1.2); Monocytes Percent Auto 5.5 % (2-11); Neutrophils Absolute Auto 7.7 x10*3/uL (2.0-8.3); Neutrophils Percent Auto 70.5 % (45-73); Platelet Count 321 X10*3/uL (160-400); Red Blood Count 4.43 X10*6/uL (4.60-5.80); Red Cell Distribution Width 12.1 % (11.0-16.0); White Blood Count 10.9 X10*3/uL (4.8-10.8)
== END 2025-02-21 12:24 | disposition home or self-care (01) ==
LOC: HO.LABR 12:23
PROVIDERS: PCP Internal Medicine; Visit Provider Psychiatry & Neurology Psychiatry
DX: Z79.899 Other long term (current) drug therapy (principal)
CPT/HCPCS: 36415; 85025

== ENCOUNTER 2025-03-26 11:56 | Outpatient (REF) | payer MEDICARE, MEDICAID, SELFPAY ==
[2025-03-26 12:10] LABS: MANUAL DIFF FLAG NO
[2025-03-26 12:45] LABS: Basophils Percent Auto 0.3 % (0-2); Eosinophils Absolute Auto 0.1 X10*3/uL (0.0-0.4); Eosinophils Percent Auto 0.6 % (0-4); Hematocrit 36.6 % (42.0-52.0); Hemoglobin 13.1 g/dl (14.0-18.0); Imm Gran Abs Auto 0.06 X10*3/uL (0.00-0.03); Imm Gran Pct Auto 0.5 % (0.0-0.4); Lymphocytes Absolute Auto 1.8 X10*3/uL (1.2-4.9); Lymphocytes Percent Auto 15.4 % (20-40); Mean Corpuscular HGB Conc 35.8 g/dl (31.0-36.0); Mean Corpuscular Hemoglobin 29.4 pg (27.0-33.0); Mean Corpuscular Volume 82.1 fL (80.0-98.0); Mean Platelet Volume 9.6 fL (9.4-12.4); Monocytes Absolute Auto 0.5 X10*3/uL (0.1-1.2); Monocytes Percent Auto 4.5 % (2-11); Neutrophils Absolute Auto 9.1 x10*3/uL (2.0-8.3); Neutrophils Percent Auto 78.7 % (45-73); Platelet Count 318 X10*3/uL (160-400); Red Blood Count 4.46 X10*6/uL (4.60-5.80); Red Cell Distribution Width 12.1 % (11.0-16.0); White Blood Count 11.5 X10*3/uL (4.8-10.8)
--- OUTSIDE RECORDS SUMMARY | 2025-03-26 14:16 | XMS_ITS | Continuity of Care Document ---
Author Organization [facility] [address] [place] [address] Phone [phone] Care Team Providers Care Regional Safety Manager Name Role Phone Ethan Issa Care Team Information Telemetry Tech + [phone] Problems Active Problems Provider Date Hyperglycemia due [...] SIG Qnty Indications Order ing Provider Date Fnhneaeb4zk/0.5ML Solution Auto-Inject 1 injection every week as directed 6ml Terell Estrella M.D. 09/05/2024 Freestyle Lucas 3/Sensor/Glucose Monitoring Wucdiq2Bmseln Misc as directed 3units Terell Estrella M.D. 09/05/2024 Freestyle Lucas 3/[place]cal[place]/Glucose Monitoring Mhqmdi8Brzscg Device use with sensors to check blood sugar dx:e11.9 1units Terell Estrella M.D. 09/05/2024 12 Hour Mucus Relief ER Max Ouswvuje8348xv Tablets ER 12HR Terell Estrella M.D. 02/11/2024 Trulicity1.5mg/0.5M L Solution Pen-Inject inject weekly 2ml Terell Estrella M.D. 02/11/2024 Metformin JIN3115sz Tablets 1 tab by mouth twice a day 180tabs Po, Lorenver Benztropine Goizowlt2td Tablets 1 in pm Unknown 00 Senna8.6mg Tablets take 2 tablets by mouth at bedtime 60tabs Po, Lorenver Cjnfajzpd3he Tablets 1 tab by mouth twice a day as needed 60tabs Unknown Wswepxidt380lj Tablets 2 tab by mouth every day Unknown Auzbppycq137ld Tablets 1 tab by mouth twice a day Unknown Atorvastatin Loedmzb07ft Tablets 1 by mouth every day 90tabs Po, Lorenver Basaglar Vugasge817Tpth/ML Solution Pen-Inject inject 15 unit subcutaneously every evening as directed Po, Lorenver Asguldtrhzz404zd Tablets 1 by mouth every day 90tabs Po, Lorenver /0 000 Vital Signs Date Vital Result Comment 12/06/2024 1:02pm BP Systolic 100 mmHg BP Diastolic 80 mmHg Heart Rate 76 /min Height 73 inches 6'1 Weight 202.12 lb BMI (Body Mass Index) 26.7 kg/m2 Results Test Acquired Date Facility Test Result H/L Range N ote Glucose Fingerstick 12/06/2024 Inhouse Glucose Fingerstick 194 Hemoglobin A1c 12/06/2024 Inhouse Hemoglobin A1c 11.3% Glucose Fingerstick 08/23/2024 Inhouse Glucose Fingerstick 140 Hemoglobin A1c 08/23/2024 Inhouse Hemoglobin A1c 11.6% Glucose Fingerstick 05/23/2024 Inhouse Glucose Fingerstick 180 Hemoglobin A1c 05/23/2024 Inhouse Hemoglobin A1c 13.2% Glucose Fingerstick 02/15/2024 Inhouse Glucose Fingerstick 298 Hemoglobin A1c 02/15/2024 Inhouse Hemoglobin A1c 7.9% Glucose Fingerstick 11/03/2023 Inhouse Glucose Fingerstick 170 Hemoglobin A1c 11/03/2023 Inhouse Hemoglobin A1c 7.7% Glucose Fingerstick 07/28/2023 Inhouse Glucose Fingerstick 267 Hemoglobin A1c 06/28/2023 Inhouse Hemoglobin A1c 11.6% Glucose Fingerstick 06/28/2023 Inhouse Glucose Fingerstick 336 Procedures Date Code Description [...]
== END 2025-03-26 11:57 | disposition home or self-care (01) ==
LOC: HO.LABR 11:56
PROVIDERS: PCP Internal Medicine; Visit Provider Psychiatry & Neurology Psychiatry
DX: Z79.899 Other long term (current) drug therapy (principal)
CPT/HCPCS: 36415; 85025

== ENCOUNTER 2025-04-30 12:46 | Outpatient (REF) | payer MEDICARE, MEDICAID, SELFPAY ==
[2025-04-30 13:20] LABS: MANUAL DIFF FLAG NO
--- OUTSIDE RECORDS SUMMARY | 2025-04-30 13:44 | XMS_ITS | Continuity of Care Document ---
Author Organization [facility] [address] [place] [address] Phone [phone] Care Team Providers Care Assurance Specialist Name Role Phone Ethan Issa Care Team Information Strategic Planning Consultant + [phone] Problems Active Problems Provider Date Hyperglycemia due [...] SIG Qnty Indications Order ing Provider Date Mounjaro7.5mg/0.5ML Solution Auto-Inject 1 injection every week as directed 6ml Terell Estrella M.D. 03/27/2025 Freestyle Luacs 3/Sensor/Glucose Monitoring Qfpucm6Ejvnsf Misc as directed 3units Terell Estrella M.D. 09/05/2024 Freestyle Lucas 3/[place]/Glucose Monitoring Yktaxt0Rnwxre Device use with sensors to check blood sugar dx:e11.9 1units Terell Estrella M.D. 09/05/2024 12 Hour Mucus Relief ER Max Vsrgqdld2185bw Tablets ER 12HR Terell Estrella M.D. 02/11/2024 Metformin YGK2828nt Tablets 1 tab by mouth twice a day 180tabs Po, Lorenver Benztropine Vwwebpjj9dv Tablets 1 in pm Unknown 00 Senna8.6mg Tablets take 2 tablets by mouth at bedtime 60tabs Po, Lorenver Vttzrqbuf6jb Tablets 1 tab by mouth twice a day as needed 60tabs Unknown Eptsonbfy095or Tablets 2 tab by mouth every day Unknown Qjnkqaouh815zd Tablets 1 tab by mouth twice a day Unknown Atorvastatin Wguiped64gx Tablets 1 by mouth every day 90tabs Po, Lorenver Basaglar Phyzlyz313Fdrd/ML Solution Pen-Inject inject 22 unit subcutaneously every evening as directed Po, Lorenver Grspuijvygg168em Tablets 1 by mouth every day 90tabs Po, Lorenver 000 History Medications Qfpqgapn4mu/0.5ML Solution Auto-Inject 1 injection every week as directed 6ml Terell Estrella M.D. 09/05/2024 - 03/27/2025 Vital Signs Date Vital Result Comment 03/27/2025 2:25pm BP Systolic 100 mmHg BP Diastolic 70 mmHg Heart Rate 72 /min Height 73 inches 6'1 Weight 205.12 lb BMI (Body Mass Index) 27.1 kg/m2 Results Test Acquired Date Facility Test Result H/L Range N ote Glucose Fingerstick 03/27/2025 Inhouse Glucose Fingerstick 190 Hemoglobin A1c 03/27/2025 Inhouse Hemoglobin A1c 8.8% Glucose Fingerstick 12/06/2024 Inhouse Glucose Fingerstick 194 [...] Date Location Provider Dx Diagnosis Office Visit 03/27/2025 2:30p Main Office Terell Estrella M.D. E11.65 Type 2 diabetes mellitus with hyperglycemia E11.9 Type 2 diabetes jorgito itus without complications Assessments Date Code Description Provider 03/27/2025 E11.65 Type 2 diabetes mellitus wit h hyperglycemia Terell Estrella M.D. 03/27/2025 E11.9 Type 2 diabetes mellitus Mary Estrella M.D. Plan of Treatment Future Appointment(s):* 08/01/2025 1:15 pm - Terell Estrella M.D. at Main Office 03/27/2025 - Terell Estrella M.D.* E11.65 Type 2 diabetes mellitus with hyperglycemia * E11.9 Type 2 diabetes mellitus * Functional Status Description No Information Available Mental Status Description No Information Available Referrals Description No Information Available
[2025-04-30 13:49] LABS: Creatinine Urine 50.18 mg/dL
[2025-04-30 14:05] LABS: Basophils Absolute Auto 0.1 X10*3/uL (0.0-0.2); Basophils Percent Auto 0.5 % (0-2); Eosinophils Absolute Auto 0.1 X10*3/uL (0.0-0.4); Eosinophils Percent Auto 0.7 % (0-4); Hematocrit 35.2 % (42.0-52.0); Hemoglobin 12.4 g/dl (14.0-18.0); Imm Gran Abs Auto 0.06 X10*3/uL (0.00-0.03); Imm Gran Pct Auto 0.5 % (0.0-0.4); Lymphocytes Percent Auto 16.6 % (20-40); Mean Corpuscular HGB Conc 35.2 g/dl (31.0-36.0); Mean Corpuscular Hemoglobin 28.9 pg (27.0-33.0); Mean Corpuscular Volume 82.1 fL (80.0-98.0); Mean Platelet Volume 9.8 fL (9.4-12.4); Monocytes Absolute Auto 0.7 X10*3/uL (0.1-1.2); Monocytes Percent Auto 6.1 % (2-11); Neutrophils Absolute Auto 8.9 x10*3/uL (2.0-8.3); Neutrophils Percent Auto 75.6 % (45-73); Platelet Count 308 X10*3/uL (160-400); Red Blood Count 4.29 X10*6/uL (4.60-5.80); Red Cell Distribution Width 12.8 % (11.0-16.0); White Blood Count 11.8 X10*3/uL (4.8-10.8)
== END 2025-04-30 12:47 | disposition home or self-care (01) ==
LOC: HO.LAB 12:46
PROVIDERS: Psychiatry & Neurology Psychiatry; PCP Internal Medicine; Visit Provider Internal Medicine
DX: E11.65 Type 2 diabetes mellitus with hyperglycemia (principal); Z79.899 Other long term (current) drug therapy
CPT/HCPCS: 36415; 82570; 85025

== ENCOUNTER 2025-05-10 14:05 | Outpatient (AMB) | payer MEDICARE, MEDICAID, SELFPAY ==
--- NOTE | 2025-05-10 14:20 | MHC.PC.OV ---
Vital Signs 05/10/25 14:21 Height 5 ft 10 in Weight 207 lb 8 oz BMI 29.8 BP 112/82 Blood Pressure Location Lt brachial Position Sitting Pulse 117 H Pulse Source Pulse Oximeter Pulse Oximetry (%) 97 Oxygen Delivery Method Room Air Intake Visit Reasons: 3 Month F/U Accompanied by: program Allergies No Known Allergies [No Known Allergies*] Allergy (Verified 05/10/25 14:24) Medication List - Last Reconciled 05/10/25 by Ethan Issa MD acetaminophen ER (Tylenol 8 Hour) 650 mg PO Q4H atorvastatin 10 mg PO DAILY benztropine 1 mg PO DAILY benztropine 2 mg PO BEDTIME blood pressure monitor (Blood Pressure Kit) As directed blood sugar diagnostic (The Medical Memory No Coding strips) test daily clozapine (Clozaril) 400 mg PO BEDTIME clozapine (Clozaril) 100 mg PO BID cyanocobalamin (vitamin B-12) 1,000 mcg PO DAILY docusate sodium (Colace) 100 mg PO BID 30 days fenofibrate 160 mg PO DAILY insulin glargine 22 units (0.22 mL) subcut QAM insulin needles (disposable) As directed lancets (BD Ultra Fine Lancets) once per day lancets (ProdFanFoundy Lancets) test daily lisinopril 5 mg PO DAILY lorazepam (Ativan) 1 mg PO BID PRN magnesium hydroxide (Milk of Magnesia) 30 mL PO BEDTIME metformin 1,000 mg PO BID 90 days pen needle, diabetic (BD Ultra-Fine Mini Pen Needle) As directed injecting Lantus once a day risperidone microspheres ER (Risperdal Consta) 50 mg IM Q2W sennosides (senna) 17.2 mg (2 x 8.6 mg) PO BEDTIME Tobacco use date assessed: 02/05/25 Dental Screening Dental Screen Date: 02/05/25 HPI 3 Month F/U HPI Details 45-year-old overweight male noted weight loss with a history of hypercholesterolemia diabetes mellitus hypertension with alcohol abuse. Patient also has schizophrenia. Patient follows up. Patient has no complaints and has just had blood work this month. [facility] Medical History (Updated 05/10/25 @ 17:21 by Ethan Issa MD) Type 2 diabetes mellitus with hyperglycemia Surgical History No pertinent past surgical history Family History Other Lung cancer Social History Housing: Other Alcohol intake: current Comment: 2x a week pack Patient Tobacco Use Status: Never used Tobacco Years Smoked: smokes pot e-Cigarette/Vaping Use: Never Used Second Hand Smoke Exposure: No service: No Current occupational status: employed Cognitive needs: Yes Hearing needs: No Vision needs: No Questionnaire PHQ-9 Over the last 2 weeks, how often have you been bothered by any of the following problems? 1. Little interest or pleasure in doing things: several days 2. Feeling down, depressed, or hopeless: not at all 3. Trouble falling or staying asleep, or sleeping too much: not at all 4. Feeling tired or having little energy: several days 5. Poor appetite or overeating: more than half the days 6. Feeling bad about yourself - or that you are a failure or have let yourself or your family down: not at all 7. Trouble concentrating on things, such as reading the newspaper or watching television: several days 8. Moving or speaking so slowly that other people could have noticed. Or the opposite - being so fidgety or restless that you have been moving around a lot more than usual: not at all 9. Thoughts that you would be better off or of hurting yourself in some way: not at all Total score: 5 Source: Developed by Drs. Leonard Smallwood, Alyssa Reyes, Juan Jose Hiu and colleagues, with an educational shana from [employer]. Thrive Questionnaire Date Thrive assessed: 02/05/25 I am a: Patient What is your living situation today?: I have a steady place to live Within the past 12 months, did the food you bought not last and you didn't have the money to get more?: Never true Within the past 12 months, did you worry whether your food would run out before you got money to buy more?: Never true Do you have trouble paying for medicines?: No Do you have trouble getting transportation to medical appointments?: No Do you have trouble paying your heating and electricity bill?: No Do you have trouble taking care of your child, family member or friend?: I choose not to answer this question Do you have trouble with day-to-day activities such as bathing, preparing meals, shopping, managing finances, etc.?: No Are you currently unemployed and looking for a job?: No Are you interested in more education?: No Please select the resources that you would like help with: None Currently or been in a relationship where the following occur: I choose not to answer THRIVE Score: 0 AUDIT C Alcohol Use Questionnaire (AUDIT-C) 1. How often do you have a drink containing alcohol?: Monthly or less 2. How many drinks containing alcohol do you have on a typical day when you are drinking?: 5 or 6 3. How often do you have six or more drinks on one occasion?: Weekly Total Score: 6 DENISE-7 AMB Questionnaire DENISE-7 Date DENISE - 7 assessed: 02/05/25 Feeling nervous, anxious, or on edge: 0 = Not at all Not being able to stop or control worryin = Not at all Worrying too much about different things: 0 = Not at all Trouble relaxin = Not at all Being so restless that it is hard to sit still: 0 = Not at all Becoming easily annoyed or irritable: 1 = Several days Feeling afraid as if something awful might happen: 0 = Not at all Total DENISE-7 score (0-4 normal; 5-9 mild; 10-14 moderate; 15-21 severe): 1 Source: Developed by Drs. Leonard Smallwood, Alyssa Reyes, Juan Jose Hui and colleagues, with an educational shana from [employer]. Physical exam (Primary Care) Vital Signs: Last Vital Signs Pulse 117 H 05/10/25 14:21 BP 112/82 05/10/25 14:21 Pulse Ox 97 05/10/25 14:21 Oxygen Delivery Method Room Air 05/10/25 14:21 BMI result Body Mass Index 29.8 Tobacco/Smoking Status: Tobacco use Status Tobacco use date assessed 02/05/25 05/10/25 14:22 Patient Tobacco Use Status Never used Tobacco 05/10/25 14:22 e-Cigarette/Vaping Use Never Used 05/10/25 14:22 PHQ-9: PHQ-9 Score PHQ-9: Total score 5 05/10/25 14:56 Thrive Assessment: Date of Thrive Assessment Date Thrive assessed 02/05/25 05/10/25 14:22 Currently or been in a relationship where the following occur: I choose not to answer Const General: alert; No acute distress Eyes Conjunctivae: conjunctivae normal Resp Auscultation: clear to auscultation bilaterally Cardio Rate: regular rate Rhythm: regular rhythm GI Inspection: Yes normal to inspection Extrem General: Yes normal to inspection and No edema Results AMB Hemoglobin A1c AMB Hemoglobin A1c 8.9 % Last Edit by AMADA Mclaughlin on 05/10/25 14:31 Immunizations pneumoc 20-denise conj-dip cr(PF) 0.5 mL IM syringe Performing Provider: Ethan Issa MD [facility] Administered by: YVONNE Andrade on 05/10/25 14:56 Dose Route Admin Location Dispensed Lot Number Expiration Date NDC Supervisor Ad[employer] Dis[employer]erks 0.5 mL IM Right Deltoid 0.5 mL [id number] 01/27/26 [employer] VIS Given Date VIS Provided VIS Publication Date 05/10/25 Single Vaccine 22 Eligibility Eligibility Date Funding Source Not [facility] Eligible 05/10/25 Private Results Reviewed Results Reviewed: Laboratory Last Values Hgb A1c (Clinic) 8.9 % (4.0-6.0) H 05/10/25 14:11 Coding Level of Care Code Est Pt Level 4 (19443) Complex EM visit Add On G2211 Diagnoses Overweight (BMI 25.0-29.9) E66.3 Type 2 diabetes mellitus with hyperglycemia, without long-term current use of insulin E11.65 Diabetes mellitus middle or intermediate school principal insulin use: without [place] [facility] use Colon cancer screening Z12.11 Primary hypertension I10 Hypertension type: primary hypertension Anemia, unspecified type D64.9 Anemia type: unspecified type Hypercholesterolemia E78.00 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 Assessment & Plan Assessment & Plan (1) Overweight (BMI 25.0-29.9): Code(s): E66.3 - Overweight Category: Medical Plan: Continue with diet and exercise (2) Type 2 diabetes mellitus with hyperglycemia: Comment: [facility] Code(s): E11.65 - Type 2 diabetes mellitus with hyperglycemia Category: Medical Qualifiers: Diabetes mellitus [place] [facility] insulin use: without [facility] use Qualified Code(s): E11.65 - Type 2 diabetes mellitus with hyperglycemia Plan: Decrease the amount of carbohydrate intake, pasta, bread, rice and potatoes are all sugar and that is aside from all the sweet stuff, remember that fruits are good but they are Sweet also. Hemoglobin A1c goal of less than 6.5. Patient on Lantus 22 units once a day metformin is a 1000 mg twice a day. On review of the notes patient has been seeing endocrinology and has been placed on Mounjaro 7.5 mg once a week.(at 1st the thought of adding Jardiance but with the patient on Mounjaro in being evaluated by Endocrinology will have endocrinology adjust medication. (3) Colon cancer screening: Code(s): Z12.11 - Encounter for screening for malignant neoplasm of colon Category: Medical Plan: Patient is reminded about colon cancer screening. Cologuard testing sent again (4) Hypertension: Code(s): I10 - Essential (primary) hypertension Category: Medical Qualifiers: Hypertension type: primary hypertension Qualified Code(s): I10 - Essential (primary) hypertension Plan: Continue with blood pressure medication. Decrease salt intake and exercise on lisinopril 5 mg once a day (5) Anemia: Code(s): D64.9 - Anemia, unspecified Category: Medical Qualifiers: Anemia type: unspecified type Qualified Code(s): D64.9 - Anemia, unspecified Plan: Chronic and stable continue to monitor (6) Hypercholesterolemia: Code(s): E78.00 - Pure hypercholesterolemia, unspecified Category: Medical Plan: Avoid fried foods, chicken skin, eggs, butter margarine, pastries and meat. Be it pork or beef they have a lot of cholesterol LDL goal of less than 100 and triglyceride of less than 150 on atorvastatin 10 mg once a day and fenofibrate 160 mg once a day LDL last tested in September 2024 (7) Schizophrenia: Comment: [facility] Code(s): F20.9 - Schizophrenia, unspecified Category: Medical Qualifiers: Schizophrenia type: disorganized schizophrenia Qualified Code(s): F20.1 - Disorganized schizophrenia Plan: Continue to follow-up with counseling and therapy Orders: Orders Pneumococcal 20 Immunization Today Z23 - Encounter for immunization Referrals Cologuard Test Z12.11 - Encounter for screening for malignant neoplasm of colon, Z12.12 - Encounter for screening for malignant neoplasm of rectum Medications: New tirzepatide (Mounjaro) 7.5 mg (0.5 mL) subcut QWEEK 2 mL 3RF E11.65 - Type 2 diabetes mellitus with hyperglycemia
[2025-05-10 14:21] VITALS: BP 112/82; PULSE 117; O2SAT 97; BMI 29.8
--- OUTSIDE RECORDS SUMMARY | 2025-05-10 16:39 | XMS_ITS | Continuity of Care Document ---
Author Organization [facility] [address] [place] [address] Phone [phone] Care Team Providers Care Operational Communication Chief Name Role Phone Ethan Issa Care Team Information Talent Acquisition Assistant + [phone] Problems Active Problems Provider Date Hyperglycemia due to type 2 diabetes mellitus Terell Estrella M.D. Onset: 06/02/2023 Anemia Terell Estrella M.D. Onset: 0 06/02/2023 Obesity Terell Estrella M.D. Onset: 0 06/02/2023 Schizophrenia Terell Estrella M.D. Onset: 0 06/02/2023 Hypercholesterolemia Terell Estrella M.D. Ons et: 06/02/2023 Essential hypertension Terell Estrella M.D. O nset: 06/02/2023 Social History Type Date Description Comments Sex Male Sex Unknown Tobacco Use Start: Unknown Never Smoked Cigarettes Smoking Status Reviewed: 11/03/23 Never Smoked [place] ETOH Use Never used alcohol Allergies and adverse reactions Description No Known Drug Allergies Medications Active Medications SIG Qnty Indications Order ing Provider Date Mounjaro7.5mg/0.5ML Solution Auto-Inject 1 injection every week as directed 6ml Terell Estrella M.D. 03/27/2025 Freestyle Lucas 3/Sensor/Glucose Monitoring Gnzoyt2Mdcvts Misc as directed 3units Terell Estrella M.D. 09/05/2024 Freestyle Lucas 3/[place]/Glucose Monitoring Mxfmbm4Inmquj Device use with sensors to check blood sugar dx:e11.9 1units Terell Estrella M.D. 09/05/2024 12 Hour Mucus Relief ER Max Tgyohvgn0210sh Tablets ER 12HR Terell Estrella M.D. 02/11/2024 Metformin MBQ2575sd Tablets 1 tab by mouth twice a day 180tabs Po, Lorenver Benztropine Rpbjryhr5ov Tablets 1 in pm Unknown 00 Senna8.6mg Tablets take 2 tablets by mouth at bedtime 60tabs Po, Lorenver Lakzlimja9mb Tablets 1 tab by mouth twice a day as needed 60tabs Unknown Bxjohoqqc087yd Tablets 2 tab by mouth every day Unknown Ubupyztzv240dp Tablets 1 tab by mouth twice a day Unknown Atorvastatin Bwtzlty24vw Tablets 1 by mouth every day 90tabs Po, Lorenver Basaglar Ksckbty593Ryjm/ML Solution Pen-Inject inject 22 unit subcutaneously every evening as directed Po, Lorenver Fqvobixbtan655qt Tablets 1 by mouth every day 90tabs Po, Lorenver 000 History Medications Vhiwdbkt6ef/0.5ML Solution Auto-Inject 1 injection every week as [...]
== END 2025-05-10 14:53 | disposition home or self-care (01) ==
LOC: HO.HMCH 14:06
PROVIDERS: PCP Internal Medicine; Visit Provider Internal Medicine
DX: E11.65 Type 2 diabetes mellitus with hyperglycemia (principal); F20.1 Disorganized schizophrenia; E66.3 Overweight; Z12.11 Encounter for screening for malignant neoplasm of colon; I10 Essential (primary) hypertension; D64.9 Anemia, unspecified; E78.00 Pure hypercholesterolemia, unspecified; Z23 Encounter for immunization

== ENCOUNTER → 2025-05-10 14:05 | Outpatient (BNVA) | payer MEDICARE, MEDICAID, SELFPAY | PROVIDERS: PCP Internal Medicine; Visit Provider Internal Medicine | DX: Z23 Encounter for immunization (principal); E66.3 Overweight; Z68.29 Body mass index [BMI] 29.0-29.9, adult; E11.65 Type 2 diabetes mellitus with hyperglycemia; I10 Essential (primary) hypertension; D64.9 Anemia, unspecified; E78.00 Pure hypercholesterolemia, unspecified; F20.1 Disorganized schizophrenia; Z71.3 Dietary counseling and surveillance | CPT/HCPCS: 83036; 90471; 90677; 99212 ==

== ENCOUNTER 2025-05-28 12:22 | Outpatient (REF) | payer MEDICARE, MEDICAID, SELFPAY ==
[2025-05-28 12:37] LABS: MANUAL DIFF FLAG NO
--- OUTSIDE RECORDS SUMMARY | 2025-05-28 12:54 | XMS_ITS | Continuity of Care Document ---
Author Organization [facility] [address] [place] [address] Phone [phone] Care Team Providers Care Local Company Flatbed Truck Driver Name Role Phone Ethan Issa Care Team Information Solar Power Installer + [phone] Problems Active Problems Provider Date Hyperglycemia due [...] Estrella M.D. 03/27/2025 Freestyle Lucas 3/Sensor/Glucose Monitoring Hljedt7Vmacft Misc as directed 3units Terell Estrella M.D. 09/05/2024 Freestyle Lucas 3/[place]/Glucose Monitoring Bjvxzr2Jmhwbv Device use with sensors to check blood sugar dx:e11.9 1units Terell Estrella M.D. 09/05/2024 12 Hour Mucus Relief ER Max Zadumwaf7096nf Tablets ER 12HR Terell Estrella M.D. 02/11/2024 Metformin BHL7892yy Tablets 1 tab by mouth twice a day 180tabs Po, Lorenver Benztropine Prajjygm1pn Tablets 1 in pm Unknown 00 Senna8.6mg Tablets take 2 tablets by mouth at bedtime 60tabs Po, Lorenver Qncbyfrhx5dp Tablets 1 tab by mouth twice a day as needed 60tabs Unknown Modankqeu054hx Tablets 2 tab by mouth every day Unknown Gaanqbuza541lr Tablets 1 tab by mouth twice a day Unknown Atorvastatin Oaowhcw82yv Tablets 1 by mouth every day 90tabs Po, Lorenver Basaglar Vzjrdqb006Xnhu/ML Solution Pen-Inject inject 22 unit subcutaneously every evening as directed Po, Lorenver Onwnosllkab602qz Tablets 1 by mouth every day 90tabs Po, Lorenver 000 History Medications Kegvsgzp5nj/0.5ML Solution Auto-Inject 1 injection every week as [...]
[2025-05-28 13:33] LABS: Basophils Absolute Auto 0.1 X10*3/uL (0.0-0.2); Basophils Percent Auto 0.6 % (0-2); Eosinophils Percent Auto 0.1 % (0-4); Hematocrit 32.7 % (42.0-52.0); Hemoglobin 11.8 g/dl (14.0-18.0); Imm Gran Abs Auto 0.06 X10*3/uL (0.00-0.03); Imm Gran Pct Auto 0.6 % (0.0-0.4); Lymphocytes Absolute Auto 2.6 X10*3/uL (1.2-4.9); Lymphocytes Percent Auto 24.6 % (20-40); Mean Corpuscular HGB Conc 36.1 g/dl (31.0-36.0); Mean Corpuscular Hemoglobin 29.4 pg (27.0-33.0); Mean Corpuscular Volume 81.5 fL (80.0-98.0); Monocytes Absolute Auto 0.6 X10*3/uL (0.1-1.2); Monocytes Percent Auto 5.9 % (2-11); Neutrophils Absolute Auto 7.3 x10*3/uL (2.0-8.3); Neutrophils Percent Auto 68.2 % (45-73); Platelet Count 291 X10*3/uL (160-400); Red Blood Count 4.01 X10*6/uL (4.60-5.80); Red Cell Distribution Width 12.4 % (11.0-16.0); White Blood Count 10.6 X10*3/uL (4.8-10.8)
== END 2025-05-28 12:23 | disposition home or self-care (01) ==
LOC: HO.LABR 12:22
PROVIDERS: PCP Internal Medicine; Visit Provider Psychiatry & Neurology Psychiatry
DX: Z79.899 Other long term (current) drug therapy (principal)
CPT/HCPCS: 36415; 85025

== ENCOUNTER 2025-06-25 11:41 | Outpatient (REF) | payer MEDICARE, MEDICAID, SELFPAY ==
[2025-06-25 11:55] LABS: MANUAL DIFF FLAG NO
[2025-06-25 12:17] LABS: Hematocrit 36.4 % (42.0-52.0); Hemoglobin 13.1 g/dl (14.0-18.0); Imm Gran Abs Auto 0.05 X10*3/uL (0.00-0.03); Imm Gran Pct Auto 0.5 % (0.0-0.4); Lymphocytes Absolute Auto 2.3 X10*3/uL (1.2-4.9); Mean Corpuscular HGB Conc 36.0 g/dl (31.0-36.0); Mean Corpuscular Hemoglobin 28.6 pg (27.0-33.0); Mean Corpuscular Volume 79.5 fL (80.0-98.0); NRBC Abs Auto 0.000 X10*3/uL (0.0-0.012); NRBC Pct Auto 0.0 /100WBC (0.0-0.2); Platelet Count 336 X10*3/uL (160-400); Red Blood Count 4.58 X10*6/uL (4.60-5.80); White Blood Count 10.3 X10*3/uL (4.8-10.8)
--- OUTSIDE RECORDS SUMMARY | 2025-06-25 12:56 | XMS_ITS | Continuity of Care Document ---
Author Organization [facility] [address] [place] [address] Phone [phone] Care Team Providers Care Tobacco Stripping Machine Operator Name Role Phone Ethan Issa Care Team Information Stapler Hand + [phone] Problems Active Problems Provider Date Hyperglycemia due [...] Estrella M.D. 03/27/2025 Freestyle Lucas 3/Sensor/Glucose Monitoring Yjtygi9Zjaydp Misc as directed 3units Terell Estrella M.D. 09/05/2024 Freestyle Lucas 3/[place]/Glucose Monitoring Qxmnyk0Cypxjk Device use with sensors to check blood sugar dx:e11.9 1units Terell Estrella M.D. 09/05/2024 12 Hour Mucus Relief ER Max Gahvtbij1952qv Tablets ER 12HR Terell Estrella M.D. 02/11/2024 Metformin OGC5047hm Tablets 1 tab by mouth twice a day 180tabs Po, Lorenver Benztropine Jpexvefz8cw Tablets 1 in pm Unknown 00 Senna8.6mg Tablets take 2 tablets by mouth at bedtime 60tabs Po, Lorenver Lvokymizf0lr Tablets 1 tab by mouth twice a day as needed 60tabs Unknown Gwxpmlfyo305sk Tablets 2 tab by mouth every day Unknown Ypsowybxc143kl Tablets 1 tab by mouth twice a day Unknown Atorvastatin Nypkeil78pa Tablets 1 by mouth every day 90tabs Po, Lorenver Basaglar Tebxeei393Dwge/ML Solution Pen-Inject inject 22 unit subcutaneously every evening as directed Po, Lorenver Jtjqjhtlgjr388qa Tablets 1 by mouth every day 90tabs Po, Lorenver 000 History Medications Gncoefep8ug/0.5ML Solution Auto-Inject 1 injection every week as [...]
== END 2025-06-25 11:42 | disposition home or self-care (01) ==
LOC: HO.LABR 11:41
PROVIDERS: PCP Internal Medicine; Visit Provider Psychiatry & Neurology Psychiatry
DX: Z79.899 Other long term (current) drug therapy (principal)
CPT/HCPCS: 36415; 85025; 85652

== ENCOUNTER 2025-07-19 13:31 | Outpatient (REF) | payer MEDICARE, MEDICAID, SELFPAY ==
[2025-07-19 13:43] LABS: MANUAL DIFF FLAG NO
[2025-07-19 14:03] LABS: Hematocrit 35.4 % (42.0-52.0); Hemoglobin 12.6 g/dl (14.0-18.0); Imm Gran Abs Auto 0.02 X10*3/uL (0.00-0.03); Imm Gran Pct Auto 0.2 % (0.0-0.4); Lymphocytes Absolute Auto 2.7 X10*3/uL (1.2-4.9); Mean Corpuscular HGB Conc 35.6 g/dl (31.0-36.0); Mean Corpuscular Hemoglobin 28.6 pg (27.0-33.0); Mean Corpuscular Volume 80.3 fL (80.0-98.0); NRBC Abs Auto 0.000 X10*3/uL (0.0-0.012); NRBC Pct Auto 0.0 /100WBC (0.0-0.2); Platelet Count 310 X10*3/uL (160-400); Red Blood Count 4.41 X10*6/uL (4.60-5.80); White Blood Count 8.9 X10*3/uL (4.8-10.8)
== END 2025-07-19 13:32 | disposition home or self-care (01) ==
LOC: HO.LABR 13:31
PROVIDERS: PCP Internal Medicine
DX: Z79.899 Other long term (current) drug therapy (principal)
CPT/HCPCS: 36415; 85025

== ENCOUNTER 2025-11-27 13:31 | Outpatient (AMB) | payer MEDICARE, MEDICAID, SELFPAY ==
[2025-11-27 13:34] VITALS: BP 118/82; PULSE 108; O2SAT 97; BMI 30.6
--- NOTE | 2025-11-27 13:34 | A.OFFVIS_ITS ---
Intake Vital Signs 11/27/25 13:34 Height 5 ft 10 in Weight 213 lb BMI 30.6 BP 118/82 Blood Pressure Location Lt brachial Position Sitting Pulse 108 H Pulse Source Pulse Oximeter Pulse Oximetry (%) 97 Oxygen Delivery Method Room Air Intake Visit Reasons: Annual Exam Allergies No Known Allergies (No Known Allergies*) Allergy (Verified 11/27/25 13:34) Medication List - Last Reconciled 11/27/25 by Ethan Issa MD acetaminophen ER (Tylenol 8 Hour) 650 mg PO Q4H atorvastatin 10 mg PO DAILY 90 days benztropine 1 mg PO DAILY benztropine 2 mg PO BEDTIME blood pressure monitor (Blood Pressure Kit) As directed blood sugar diagnostic (BlisMediaigy No Coding strips) test daily blood sugar diagnostic (FreeStyle Lite Strips) As directed once daily blood-glucose meter (FreeStyle Lite Meter kit) As directed clozapine (Clozaril) 400 mg PO BEDTIME clozapine (Clozaril) 100 mg PO BID cyanocobalamin (vitamin B-12) 1,000 mcg PO DAILY docusate sodium (Colace) 100 mg PO BID 30 days fenofibrate 160 mg PO DAILY 30 days insulin glargine 24 units (0.24 mL) subcut QAM insulin needles (disposable) As directed lancets (BD Ultra Fine Lancets) once per day lancets (Prodigy Lancets) test daily lisinopril 5 mg PO DAILY 90 days lorazepam (Ativan) 1 mg PO BID PRN magnesium hydroxide (Milk of Magnesia) 30 mL PO BEDTIME metformin 1,000 mg PO BID 90 days pen needle, diabetic (BD Ultra-Fine Mini Pen Needle) As directed injecting Lantus once a day risperidone microspheres ER (Risperdal Consta) 50 mg IM Q2W sennosides (senna) 17.2 mg (2 x 8.6 mg) PO BEDTIME tirzepatide (Mounjaro) 7.5 mg (0.5 mL) subcut QWEEK HPI Annual Exam HPI Details [facility] endocrinology Dr. Estrella, Ophthalmology [facility] gastroeneterology Dr. Duggan HPI Comments History of Present Illness Details History of Present Illness The patient is a 45-year-old overweight male presenting for an annual physical examination with a history of schizophrenia, hypercholesterolemia, hypertension, diabetes mellitus, and alcohol abuse. For his diabetes, the patient was seen by endocrinology on August 01 and was prescribed Mounjaro 7.5 mg weekly, with a HgbA1c of 7.5% at that time. He was supposed to be on 22 units of Basaglar but reports taking only 16 units. He uses a Freestyle Lucas for continuous glucose monitoring. His last blood work in June of the previous year showed anemia with a hemoglobin of 12.6 and hematocrit of 35.4, as well as mild hyponatremia of 134. His LDL cholesterol last year was 75. Regarding health maintenance, his last colonoscopy was in 2014. He was last seen by ophthalmology in March 2025 and was found to have no diabetic retinopathy. His tetanus and pneumonia vaccinations are up to date, but he does not get flu shots. Health Maintenance The patient was reminded that he is due for a colonoscopy. He was advised to get blood work done. A referral for podiatry will be provided. The patient was counseled on the importance of exercise and weight management. The patient declined a flu shot. Social History - Substance use: The patient has a histo ry of alcohol abuse. - Exercise: The patient was counseled on the importance of exercise and states he likes to do it. Results - Labs: HgbA1c today is 8.7%. - HgbA1c on August 01 was 7.5%. - Blood work from July 19 of the previ ous year showed hemoglobin of 12.6, hematocrit of 35.4, and sodium of 134. - LDL cholesterol last year was 75. - Tests and Diagnostics: Last colonoscop y was in 2014. - Ophthalmology exam in April 2025 showed no diabetic retinopathy. - A stool sample from September 2023 was not processed. [facility] Medical History (Updated 05/10/25 @ 17:21 by Ethan Issa MD) Type 2 diabetes mellitus with hyperglycemia Surgical History No pertinent past surgical history Family History Other Lung cancer Social History (Updated 11/27/25 @ 14:00 by Ethan Issa MD) Housing: Other Alcohol intake: current Comment: once a week pack Patient Tobacco Use Status: Never used Tobacco Years Smoked: smokes pot e-Cigarette/Vaping Use: Never Used Second Hand Smoke Exposure: No service: No Current occupational status: employed Cognitive needs: Yes Hearing needs: No Vision needs: No Questionnaire Medicare Wellness Checkup What is your age?: 65-69 (18-64) What gender do you identify with?: male During the past 4 weeks, how much have you been bothered by emotional problems such as feeling anxious, depressed, irritable, sad or downhearted, and blue?: not at all During the past 4 weeks, has your physical & emotional health limited your social activities with family, friends, neighbors, or groups?: not at all During the past 4 weeks, how much bodily pain have you generally had?: no pain During the past 4 weeks, was someone available to help you if you needed & wanted help?: yes, as much as I wanted During the past 4 weeks, what was the hardest physical activity you could do for at least 2 minutes?: heavy Can you get to places out of walking distance without help? (For eg., can you travel alone on buses, taxis or drive your car?): No Can you go shopping for groceries or clothes without someone's help?: Yes Can you prepare your own meals?: Yes Can you do your housework without help?: No Because of any health problems, do you need the help of another person with your personal care needs such as eating, bathing, dressing or getting around the house?: No Can you handle your own money without help?: No During the past 4 weeks, how would you rate your health in general?: fair During the past 4 weeks how have things been going for you?: good & bad parts about equal Are you having difficulties driving your car?: not applicable, I don't use a car Do you always fasten your seat belt when you are in a car?: yes, usually During past 4 weeks, have you been bothered by the following: never: Trouble eating well? and Tiredness or fatigue? and sometimes: Falling or dizzy when standing up, Sexual problems?, Teeth or denture problems? and Problems using the telephone? Have you fallen 2 or more times in the past year?: No Are you afraid of falling?: No Are you a smoker?: no During the past 4 weeks, how many drinks of wine, beer, or other alcoholic beverages did you have?: 10 or more per week Do you exercise for about 20 minutes 3 or more times a week?: no, I usually do not exercise this much Have you been given information to help with the following?: yes: Hazards in your house that might hurt you? and yes: Keeping track of your medications? How often do you have trouble taking medicines the way you have been told to take them?: I always take medicine as prescribed How confident are you that you can control & manage most of your health problems?: somewhat confident What is your race?: White PHQ-9 Over the last 2 weeks, how often have you been bothered by any of the following problems? 1. Little interest or pleasure in doing things: not at all 2. Feeling down, depressed, or hopeless: not at all 3. Trouble falling or staying asleep, or sleeping too much: not at all 4. Feeling tired or having little energy: not at all 5. Poor appetite or overeating: not at all 6. Feeling bad about yourself - or that you are a failure or have let yourself or your family down: not at all 7. Trouble concentrating on things, such as reading the newspaper or watching television: not at all 8. Moving or speaking so slowly that other people could have noticed. Or the opposite - being so fidgety or restless that you have been moving around a lot more than usual: not at all 9. Thoughts that you would be better off or of hurting yourself in some way: not at all Total score: 0 Depression Screening Interpretation: Negative Depression Screening Done: Yes Source: Developed by Drs. Leonard Smallwood, Alyssa Reyes, Juan Jose Hui and colleagues, with an educational shana from [employer]. Review of Systems Narrative Review of Systems - Constitutional: Denies fever. - HEENT: Reports hearing is not great. - Denies problems with swallowing. - Gastrointestinal: Denies problems with bowel movements. - Genitourinary: Reports polyuria and nocturia. - Neurological: Reports occasional lightheadedness. Const Denies poor appetite and Denies weakness Eyes Denies no additional complaints ENT Reports Normal hearing present, Denies dizziness, Denies nasal congestion, Denies tinnitus and Denies sore throat Card Denies chest pain, Denies syncope, Denies rapid heart rate and Denies dyspnea Resp Denies cough and Denies dyspnea GI Denies change in stool character, Reports constipation, Denies diarrhea, Denies nausea and Denies vomiting Denies dysuria and Denies urinary frequency Neuro Reports Normal hearing present, Denies confusion, Denies dizziness, Denies syncope and Denies weakness Psych Denies confusion Physical Exam Exam Exam: Physical Exam General: Cooperative, overweight, healthy appearing, comfortable, no acute distress and well developed Orientation: Patient oriented x3 Limitations: No limitations Head: Normal to inspection Ears: Hearing not that great, a lot of earwax present Nose: Normal external nose present Face and sinus: Normal facial exam Eyes: Appearance normal, both eyes and all related structures Neck: Normal visual inspection and Yes full ROM Respiratory: Normal respiratory effort and able to speak in complete sentences. Clear to auscultation bilaterally Cardiovascular: Regular rate and rhythm. Normal S1 and S2 GI: Normal to inspection. Soft to palpation and nontender Skin: No rashes or lesions noted Neuro: Patient oriented x3 Extremities: Normal to inspection Vital Signs: Last Vital Signs Pulse 108 H 11/27/25 13:34 BP 118/82 11/27/25 13:34 Pulse Ox 97 11/27/25 13:34 Oxygen Delivery Method Room Air 11/27/25 13:34 BMI result Body Mass Index 30.6 Const General: alert and awake; No confusion Orientation/consciousness: No confusion HEENT Head: Yes normocephalic Ears: external ears normal and TM's normal bilaterally Face and sinus: Yes normal facial exam Mouth: moist mucous membranes Throat: Yes tonsils normal Eyes Conjunctivae: conjunctivae normal Pupils: Equal, round and reactive pupils present and Pupil accommodation reflex normal Direct Ophthalmoscopy: normal light reflex Neck Neck: No lymphadenopathy Thyroid: Thyroid normal Chest Chest palpation & inspection: normal inspection of the chest Resp Effort & Inspection: normal respiratory effort and no audible wheezes Auscultation: clear to auscultation bilaterally, no crackles, no wheezes and lung sounds not diminished Cardio Rate: regular rate Rhythm: regular rhythm Peripheral pulses: radial pulses present and dorsalis pedis present GI Other: declined Palpation (GI): no masses Auscultation: normal bowel sounds and normoactive bowel sounds Rectal Exam - Male: Yes deferred Other: declined, pedal pulse and pin prick good Skin General skin exam: no rashes or lesions noted Rashes: no rashes Neuro General: deep tendon reflexes 2+ bilaterally and No confusion Cranial nerves: Yes Equal, round and reactive pupils present, Yes Midline tongue present, Yes Normal hearing present and Yes Ability to bilaterally elevate shoulders present Cognition (Neuro): normal cognition Gait exam (Neuro): Normal gait present Motor exam (neuro): 5/5 motor strength present throughout Deep tendon reflexes (DTR's): Right brachioradialis reflex intensity grade: 2+, Left brachioradialis reflex intensity grade: 2+, Right patellar reflex intensity grade: 2+ and Left patellar reflex intensity grade: 2+ Extrem General: No edema Results AMB Hemoglobin A1c AMB Hemoglobin A1c 8.7 % Last Edit by Eunice Frazier CMA on 11/27/25 14 :03 Results Reviewed Results Reviewed: Laboratory Last Values Hgb A1c (Clinic) 8.7 % (4.0-6.0) H 11/27/25 13:35 Assessment & Plan Assessment & Plan (1) Annual physical exam: Code(s): Z00.00 - Encounter for general adult medical examination without abnormal findings Plan: Patient is advised to eat healthy, keep well hydrated, keep active and have adequate sleep. (2) Type 2 diabetes mellitus with hyperglycemia: Comment: [facility] Code(s): E11.65 - Type 2 diabetes mellitus with hyperglycemia Qualifiers: Diabetes mellitus termite exterminator insulin use: without termite exterminator use Qualified Code(s): E11.65 - Type 2 diabetes mellitus with hyperglycemia Plan: Decrease the amount of carbohydrate intake, pasta, bread, rice and potatoes are all sugar and that is aside from all the sweet stuff, remember that fruits are good but they are Sweet also. Hemoglobin A1c goal of less than 7.0 patient is being seen by Endocrinology on tirzepatide, Basaglar and metformin. Patient is up-to-date with ophthalmology seen in March 2025 (3) Hypertension: Code(s): I10 - Essential (primary) hypertension Qualifiers: Hypertension type: primary hypertension Qualified Code(s): I10 - Essential (primary) hypertension Plan: Continue with blood pressure medication. Decrease salt intake and exercise patient is on lisinopril 5 mg once a day (4) Hypercholesterolemia: Code(s): E78.00 - Pure hypercholesterolemia, unspecified Plan: Avoid fried foods, chicken skin, eggs, butter margarine, pastries and meat. Be it pork or beef they have a lot of cholesterol LDL goal of less than 100 and triglyceride of less than 150 on atorvastatin 10 mg once a day (5) Colon cancer screening: Code(s): Z12.11 - Encounter for screening for malignant neoplasm of colon Plan: Patient is reminded about colonoscopy (6) Anemia: Code(s): D64.9 - Anemia, unspecified Qualifiers: Anemia type: unspecified type Qualified Code(s): D64.9 - Anemia, unspecified Plan: Advised to get blood work done Plan Plan Patient was informed and verbally consented to the use of an ambient scribe for clinic note documentation during this visit. 1. Diabetes Mellitus The patient's current HgbA1c is 8.7%, which is elevated from 7.5% in July and above the goal of less than 7.0%. He will continue under the care of endocrinology with Dr. Jones. He will continue Tirzepatide (Mounjaro), metformin, and Basaglar insulin. He should follow up with endocrinology to discuss increasing the dose of Tirzepatide, as he is not losing weight. A lab request for new blood work has been provided. 2. Hypertension The patient's blood pressure is good. He will continue lisinopril 5 mg once daily. 3. Hypercholesterolemia The patient's LDL goal is less than 100 mg/dL and triglyceride goal is less than 150 mg/dL. He will continue atorvastatin 10 mg once daily. 4. Cerumen Impaction The patient has significant earwax occluding the ear canal. He was advised to use luuj-zpo-sytbhus ear drops. Discussion Notes I reviewed the patient's recent HgbA1c of 8.7%, which is an increase from his prior value of 7.5% and well above the normal range. I explained that his high blood sugar is likely causing his symptoms of polyuria and nocturia. I stressed the importance of controlling his blood sugar, blood pressure, and cholesterol to mitigate the risk of vision loss, heart attack, and stroke. I recommended he follow up with his nuclear design engineer, Dr. Landrum, to discuss increasing his Tirzepatide dose, as he is not losing weight on the current regimen. We discussed his overdue colon cancer screening, noting a previous stool sample from September 2023 was not processed. I provided a request form for him to complete blood work and recommended a referral to a fiberglass roller for an annual foot exam. I advised him about his cerumen impaction and suggested [id number] ear drops. He declined a flu shot. I reinforced the importance of drinking enough water, healthy eating, and regular exercise. Patient Instructions - Your blood sugar is high. Your A1c is 8.7%, and the goal is less than 7.0%. - Continue taking your prescribed medications for diabetes, high blood pressure, and high cholesterol. - Schedule an appointment with your nuclear design engineer, Dr. Landrum, to discuss your diabetes medication. - You are due for a colonoscopy for colon cancer screening. - Please get your blood work done using the lab form I gave you. - We will give you a referral to see a foot doctor (fiberglass roller). - You have a lot of earwax. You can use slrp-lcw-yguuxap ear drops to help clear it out. - Remember to eat a healthy diet, exercise, and drink plenty of water. - Please remind us to get your lab results after you have your blood drawn. Orders: Orders AMB Hemoglobin A1c Today Z13.9 - Encounter for screening, unspecified Referrals Podiatry Referral E11.65 - Type 2 diabetes mellitus with hyperglycemia Medications: Changed From insulin glargine 22 units (0.22 mL) subcut QAM 15 mL 3RF E11.65 - Type 2 diabetes mellitus with hyperglycemia To insulin glargine 24 units (0.24 mL) subcut QAM 15 mL 3RF E11.65 - Type 2 diabetes mellitus with hyperglycemia Quality Reporting (2019) Depression/Bipolar (159/160/161/177) PHQ-9: Total score: 0 Coding Level of Care Code Medicare Subsequent (G0439) Diagnoses Annual physical exam Z00.00 Type 2 diabetes mellitus with hyperglycemia, without long-term current use of insulin E11.65 Diabetes mellitus termite exterminator insulin use: without [facility] use Primary hypertension I10 Hypertension type: primary hypertension Hypercholesterolemia E78.00 Colon cancer screening Z12.11 Anemia, unspecified type D64.9 Anemia type: unspecified type
--- OUTSIDE RECORDS SUMMARY | 2025-11-27 17:24 | XMS_ITS | Continuity of Care Document ---
Author Organization [facility] [address] [place] [address] Phone [phone] Care Team Providers Care Electrical Logger Name Role Phone Etahn Issa Care Team Information Farm Equipment Engine Mechanic + [phone] Problems Active Problems Provider Date Hyperglycemia due [...] Tobacco Use Start: Unknown Never Smoked Cigarettes ETOH Use Never used alcohol Allergies and adverse reactions Description No Known Drug Allergies Medications Active Medications SIG Qnty Indications Order ing Provider Date Onetouch VerioStrips use 1 strip to check glucose 3 times daily dx: e11.9 300units Terell Estrella M.D. 11/20/2025 Onetouch Verio Flex Blood Glucose Monitoring Systemw/Device Kit as directed 1units Terell Estrella M.D. 11/20/2025 True Comfort Pen Calvin 31G X5mm Use as Directed To Inject Once A Day 100units E11Malaika Estrella M.D. 09/05/2025 Hqqbxvi71T Misc use one to test bloo d sugars once a day dx: e11.9 100units E11Adonis9 Terell Estrella M.D. 09/05/2025 Mounjaro7.5mg/0.5ML Solution Auto-Inject 1 injection every week as directed 6ml Terell Estrella M.D. 03/27/2025 Freestyle Lucas 3/Sensor/Glucose Monitoring [facility]lo[facility]ss [facility] 3units Terell Estrella M.D. 09/05/2024 Freestyle Lucas 3/Jameson/Glucose Monitoring Pkdrky7Kjbmhz Device use with sensors to check blood sugar dx:e11.9 1units Terell Estrella M.D. 09/05/2024 12 Hour Mucus Relief ER Max [id number] Tablets ER 12HR Terell Estrella M.D. 02/11/2024 Efrxqjnycwy572ot Tablets 1 by mouth every day 90tabs Po, Lorenver /0 000 Basaglar Xnusgen398Xiyt/ML Solution Pen-Inject inject 22 unit subcutaneously every evening as directed Po, Lorenver Atorvastatin Mhccmjl59ic Tablets 1 by mouth every day 90tabs Po, Lorenver Kzzlvqdnv977og Tablets 1 tab by mouth twice a day Unknown Bpyofmqsi948nf Tablets 2 tab by mouth every day Unknown Hslrjzmlp9fk Tablets 1 tab by mouth twice a day as needed 60tabs Unknown Senna8.6mg Tablets take 2 tablets by mouth at bedtime 60tabs Po, Lorenver Benztropine Bkriamgi4cz Tablets 1 in pm Unknown 00 Metformin [id number] Tablets 1 tab by mouth twice a day 180tabs Po, Lorenver Vital Signs Date Vital Result Comment 08/01/2025 1:08pm BP Systolic 110 mmHg BP Diastolic 80 mmHg Heart Rate 72 /min Height 73 inches 6'1 Weight 207.00 lb BMI (Body Mass Index) 27.3 kg/m2 Results Test Acquired Date Facility Test Result H/L Range N ote Glucose Fingerstick 08/01/2025 Inhouse Glucose Fingerstick 343 Glucose Fingerstick 03/27/2025 Inhouse Glucose Fingerstick 190 [...] Date Location Provider Dx Diagnosis Office Visit 08/01/2025 1:15p Main Office Terell Estrella M.D. E11.9 Type 2 diabetes mellitus without complications Assessments Date Code Description Provider 08/01/2025 E11.9 Type 2 diabetes mellitus Mary Estrella M.D. Plan of Treatment Future Appointment(s):* 12/12/2025 10:15 am - Terell Estrella M.D. at Main Office 03/27/2025 - Terell Estrella M.D.* E11.65 Type 2 diabetes mellitus with hyperglycemia * E11.9 Type 2 diabetes mellitus * Functional Status Description No Information Available Mental Status Description No Information Available Referrals Description No Information Available
== END 2025-11-27 14:15 | disposition home or self-care (01) ==
PROVIDERS: PCP Internal Medicine; Visit Provider Internal Medicine
DX: Z00.00 Encounter for general adult medical examination without abnormal findings (principal); E11.65 Type 2 diabetes mellitus with hyperglycemia; I10 Essential (primary) hypertension; E78.00 Pure hypercholesterolemia, unspecified; Z12.11 Encounter for screening for malignant neoplasm of colon; D64.9 Anemia, unspecified; Z13.9 Encounter for screening, unspecified

== ENCOUNTER → 2025-11-27 13:31 | Outpatient (BNVA) | payer MEDICARE, MEDICAID, SELFPAY | PROVIDERS: PCP Internal Medicine; Visit Provider Internal Medicine | DX: E11.65 Type 2 diabetes mellitus with hyperglycemia (principal); Z13.31 Encounter for screening for depression | CPT/HCPCS: 83036; 96127 ==